=== PATIENT | female | born 1960 | race Caucasian/White ===

== ENCOUNTER 2022-10-27 05:42 | Outpatient (REF) | payer MEDICAID, SELFPAY ==
[2022-10-27 10:03] LABS: Basophils Percent Auto 0.4 % (0.2-2.0); Eosinophils Absolute Auto 0.5 10^3/uL (0.0-0.7); Eosinophils Percent Auto 9.6 % (0.9-7.0); Hematocrit 23.4 % (36.0-48.0); Immature Granulocytes Abs Auto 0.08 10^3/uL (0.00-0.03); Immature Granulocytes Pct Auto 1.4 % (0.0-0.5); Lymphocytes Absolute Auto 1.8 10^3/uL (1.2-3.8); Lymphocytes Percent Auto 31.8 % (20.5-60.0); Mean Corpuscular Hemoglobin 27.6 pg (26.7-34.0); Mean Corpuscular Volume 97.9 fL (81.0-99.0); Mean Platelet Volume 10.3 fL (9.5-13.5); Monocytes Absolute Auto 0.4 10^3/uL (0.3-0.8); Monocytes Percent Auto 6.8 % (1.7-12.0); Neutrophils Absolute Auto 2.8 10^3/uL (1.4-6.5); Platelet Count 119 10^3/uL (150-450); Red Blood Count 2.39 10^6/uL (4.20-5.40); Red Cell Distribution Width 15.5 % (11.0-15.0); White Blood Count 5.6 10^3/uL (4.0-11.0)
[2022-10-27 10:44] LABS: Mean Corpuscular HGB Conc 28.2 g/dL (29.9-35.2)
[2022-10-27 10:46] LABS: Hemoglobin 6.6 g/dL (12.0-16.0)
[2022-10-27 22:25] LABS: Alanine Aminotransferase 26 U/L (14-59); Albumin Globulin Ratio 0.7; Albumin Level 2.4 g/dL (3.4-5.0); Alkaline Phosphatase 112 U/L (46-116); Anion Gap 10.8; Aspartate Amino Transferase 20 U/L (15-37); BUN Creatinine Ratio 51.1; Bilirubin Total 0.1 mg/dL (0.2-1.0); Calcium 8.9 mg/dL (8.5-10.1); Carbon Dioxide 29.8 mmol/L (21.0-32.0); Chloride 106 mmol/L (98-107); Estimated GFR (African America 45 (>=60); Estimated GFR (Non-African Ame 38 (>=60); Globulin 3.5 g/dL; Glucose 128 mg/dL (74-106); Potassium 5.6 mmol/L (3.5-5.1); Sodium 141 mmol/L (136-145); Total Protein 5.9 g/dL (6.4-8.2)
== END 2022-10-27 05:43 ==
LOC: LAB 05:42
PROVIDERS: PCP Family Medicine; Visit Provider Family Medicine
DX: R53.1 Weakness (principal); Z79.899 Other long term (current) drug therapy; D64.9 Anemia, unspecified
CPT/HCPCS: 36415; 80053; 85025; 86850; 86900; 86901; P9016

== ENCOUNTER 2022-10-28 07:32 | Outpatient (RCR) | payer MEDICAID, SELFPAY ==
[2022-10-28] VITALS (8 sets, daily range): BP systolic 74–100; BP diastolic 43–71; PULSE 80–83; RESP 18–20; TEMP 35.9–36.6; O2SAT 94–99
[2022-10-28] MEDS: 0.9 % SODIUM CHLORIDE 250 ML 10 ML IV (08:44)
--- NOTE | 2022-10-28 09:10 | PC.NURSE ---
0800: Pt. to [facility] via w/c from half-way accompanied by hazardous materials driver. Pt. requests to remain in w/c throughout transfusion. Pt. with O2 intact at 3L nasal cannula. BP 74/42. Pt. relays extreme fatigue lately and chronic dyspnea. 0815: #22 gauge IV initiated to left forearm on first attempt with immediate blood return. Flushes easily. Pt. tolerates with minimal c/o pain. IV normal saline initiated at KVO. 0817: Pt. c/o pain to IV site. Edema observed. IV d/c'd, pressure to site. #22 gauge IV initiated to right arm on first attempt without difficulty. Flushes easily without redness, edema or pain. IV normal saline resumed. 0845: 1 unit PRBC initiated at this time. 0900: Pt. without s&s of adverse reaction. VSS. Pt. denies needs. Water and warm blanket given.
--- NOTE | 2022-10-28 09:35 | PC.NURSE ---
0935: Pt. without c/o. PRBC cont. to infuse without difficulty. Denies needs.
--- NOTE | 2022-10-28 11:12 | PC.NURSE ---
Dual authentication completed as per protocol on second unit of blood received this day #[id number].
--- NOTE | 2022-10-28 11:20 | PC.NURSE ---
1025: First unit PRBC completed at this time without s&s of transfusion reaction. VSS. Assisted pt. to bathroom via w/c. Voids Q.S. Returns to room. 1048: Second unit PRBC initiated at this time after double check performed with Dane Downs RN. IV site remains without s&s of infiltration. Pt. drinking water. Declines food when offered. 1108: Pt. tolerating infusion without c/o. VSS. Denies needs.
--- NOTE | 2022-10-28 12:15 | PC.NURSE ---
1210: Second unit PRBC completed at this time. Pt. without s&s of transfusion reaction. VSS. IV d/c'd, pressure to site. 1212: Revenue Officer Perry arrives. Pt. d/c'd via w/c back to [facility].
== END 2022-11-19 23:59 | disposition home or self-care (01) ==
LOC: INF 07:32
PROVIDERS: PCP Family Medicine; Visit Provider Family Medicine
DX: D64.9 Anemia, unspecified (principal)
CPT/HCPCS: 36430; 86850; 86900; 86901; P9016

== ENCOUNTER 2022-11-25 14:56 | Outpatient (REF) | payer MEDICAID, SELFPAY ==
[2022-11-26 08:56] LABS: C. Difficile PCR NEGATIVE (NEGATIVE)
== END 2022-11-25 14:57 | disposition home or self-care (01) ==
LOC: LAB 14:56
PROVIDERS: PCP Family Medicine; Visit Provider Family Medicine
DX: R19.7 Diarrhea, unspecified (principal)
CPT/HCPCS: 87493

== ENCOUNTER 2022-11-29 15:32 | Inpatient (IN) | payer MEDICAID, SELFPAY ==
[2022-11-29] VITALS (29 sets, daily range): BP systolic 77–190; BP diastolic 52–94; PULSE 85–113; RESP 11–75; TEMP 36.4–36.9; O2SAT 74–100; BMI 45.4; BMI 44.2
--- NOTE | 2022-11-29 15:45 | XR_ITS ---
The [address] [address] Patient Name: KAM ESTES MRN: [id number] date: 1960 Sex: F Assigned Patient Location: ER Current Patient Location: ED.MAIN Accession/Order Number: [id number] Exam Date: 11/29/2022 16:00 Report Date: 11/29/2022 16:15 At the request of: JÚNIOR MCGUIRE Procedure: XR chest 1V EXAM: XR chest 1V at 1558 hours HISTORY: SOB COMPARISON: 08/01/2022 TECHNIQUE: AP upright portable chest x-ray FINDINGS: Increasing opacity at the left lung base indicates a combination of atelectasis or infiltrate, possibly with a small effusion. The left upper and the right lung are clear. The heart is not significantly enlarged and the vasculature is not distended, although evaluation is bit limited by the patient rotation to the left. The osseous structures are grossly intact. XR/XR chest 1V IMPRESSION: Atelectasis or infiltrate is seen at the left lung base, possibly accompanied by small effusion. There is no evidence of overt cardiac decompensation. Electronically authenticated by: VEL QUIJANO Date: 11/29/2022 16:15
--- NOTE | 2022-11-29 15:45 | ECG_ITS ---
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
--- NOTE | 2022-11-29 15:46 | ED_ITS ---
HPI - General Adult General Chief complaint: Altered Mental Status Stated complaint: SOB Time Seen by Provider: 11/29/22 15:36 Source: patient Mode of arrival: ambulance Limitations: no limitations History of Present Illness HPI narrative: 62-year-old female presented for unclear reasons. ECF staff gave report and stated that she was shaky and wasn't acting herself. She doesn't seem to have any complaints. She's not complained to me of chest pain or headache or abdominal pain. Related Data Home Medications Medication Instructions Recorded Confirmed acetaminophen 500 mg tablet 1,000 mg PO Q6H PRN fever 11/29/22 11/29/22 alendronate 70 mg tablet 70 mg PO QDAY 11/29/22 11/29/22 alprazolam 0.25 mg tablet 0.25 mg PO TID PRN anxiety 11/29/22 11/29/22 apixaban 5 mg tablet (Eliquis) 5 mg PO Q12H 11/29/22 11/29/22 atorvastatin 10 mg tablet 10 mg PO .qhs 11/29/22 11/29/22 bupropion HCl (smoking deter) 150 150 mg PO BID 11/29/22 11/29/22 mg tablet,12 hr sustained-release(smoking deterrent) calcium gluconate 650 mg tablet 650 mg PO BID 11/29/22 11/29/22 diclofenac potassium 50 mg tablet 50 mg PO Q12H 11/29/22 11/29/22 doxepin 10 mg capsule 10 mg PO BID 11/29/22 11/29/22 ferrous sulfate 325 mg (65 mg 325 mg PO DAILY 11/29/22 11/29/22 iron) tablet (Feosol) furosemide 20 mg tablet 40 mg PO QDAY 11/29/22 11/29/22 furosemide 20 mg tablet (Lasix) 20 mg PO DAILY 11/29/22 11/29/22 gabapentin 800 mg tablet 800 mg PO TID 11/29/22 11/29/22 metoprolol succinate 100 mg 150 mg PO QDAY 11/29/22 11/29/22 tablet,extended release 24 hr Allergies Allergy/AdvReac Type Severity Reaction Status Date / Time codeine AdvReac Intermediate Verified 11/29/22 15:53 coumadin AdvReac Intermediate Uncoded 11/29/22 15:53 Review of Systems ROS Narrative A ten point review of systems is negative except as noted above. Exam Narrative Exam Narrative: Nurses note and vital signs reviewed and patient is not hypoxic. General: The patient appears in no apparent distress. Patient is resting comfortably on cart. Skin: Warm, dry, no pallor noted. There is no rash noted. Head: Normocephalic, atraumatic Eye: Normal conjunctiva, no drainage Ears, Nose, Mouth, and Throat: oral mucosa is slightly dry. Nares patent. Cardiovascular: Regular Rate and Rhythm Respiratory: a few rhonchi are present, breath sounds are equal Back: non-tender GI: nontender Musculoskeletal: The patient has no evidence of calf tenderness, no pitting edema, symmetrical pulses noted bilaterally Neurological: A&O x3, normal speech Psychiatric: Cooperative Constitutional Vital Signs, click to edit/add: Last Vital Signs Temp 97.6 F 11/29/22 15:36 Pulse 90 11/29/22 15:36 Resp 18 11/29/22 15:36 BP 108/81 H 11/29/22 15:36 Pulse Ox 100 11/29/22 15:36 O2 Del Method Nasal Cannula 11/29/22 15:36 O2 Flow Rate 2 11/29/22 15:36 Course Vital Signs Vital signs: Vital Signs Temperature 97.6 F 11/29/22 15:36 Pulse Rate 90 11/29/22 15:36 Respiratory Rate 18 11/29/22 15:36 Blood Pressure 108/81 H 11/29/22 15:36 Pulse Oximetry 100 11/29/22 15:36 Oxygen Delivery Method Nasal Cannula 11/29/22 15:36 Oxygen Delivery Flow Rate 2 11/29/22 15:36 Temperature 97.6 F 11/29/22 15:36 Pulse Rate 90 11/29/22 15:36 Respiratory Rate 18 11/29/22 15:36 Blood Pressure 108/81 H 11/29/22 15:36 Pulse Oximetry 100 11/29/22 15:36 Oxygen Delivery Method Nasal Cannula 11/29/22 15:36 Oxygen Delivery Flow Rate 2 11/29/22 15:36 Medical Decision Making MDM Narrative Medical decision making narrative: the patient's workup suggested pneumonia on x-ray per radiologist. Blood cultures obtained and she was given IV Rocephin and Zithromax. Potassium also high at 5.6 and she was given IV insulin and D50. She is being admitted. Differential Diagnosis Differential Diagnosis: pneumonia, dehydration, anemia, slight imbalance Lab Data Lab results reviewed: Yes I reviewed the patient's lab results Labs: Lab Results 11/29/22 Range/Units 15:55 WBC 5.0 (4.0-11.0) 10^3/uL RBC 2.70 L (4.20-5.40) 10^6/uL Hgb 7.5 L (12.0-16.0) g/dL Hct 26.2 L (36.0-48.0) % MCV 97.0 (81.0-99.0) fL MCH 27.8 (26.7-34.0) pg MCHC 28.6 L (29.9-35.2) g/dL RDW 16.0 H (11.0-15.0) % Plt Count 140 L (150-450) 10^3/uL MPV 10.1 (9.5-13.5) fL Neut % (Auto) 63.1 (43.0-75.0) % Lymph % (Auto) 22.3 (20.5-60.0) % [place] % (Auto) 7.0 (1.7-12.0) % Eos % (Auto) 6.8 (0.9-7.0) % Baso % (Auto) 0.4 (0.2-2.0) % Neut # (Auto) 3.1 (1.4-6.5) 10^3/uL Lymph # (Auto) 1.1 L (1.2-3.8) 10^3/uL [place] # (Auto) 0.4 (0.3-0.8) 10^3/uL Eos # (Auto) 0.3 (0.0-0.7) 10^3/uL Baso # (Auto) 0.0 (0.0-0.1) 10^3/uL Abs Immat Gran (auto) 0.02 (0.00-0.03) 10^3/uL Imm/Tot Granulo (auto) 0.4 (0.0-0.5) % Sodium 144 (136-145) mmol/L Potassium 6.2 H* (3.5-5.1) mmol/L Chloride 106 (98-107) mmol/L Carbon Dioxide 35.2 H (21.0-32.0) mmol/L Anion Gap 9.0 BUN 47.0 H (7.0-18.0) mg/dL Creatinine 1.42 H (0.55-1.02) mg/dL Est GFR ( Amer) 45 L (>=60) Est GFR (Non-Af Amer) 37 L (>=60) BUN/Creatinine Ratio 33.1 Glucose 110 H (74-106) mg/dL Calcium 8.6 (8.5-10.1) mg/dL Troponin I High Sens 11.8 (4.0-51.3) pg/mL ECG Data Attestation: I personally reviewed and interpreted this ECG as follows: (EKG on my interpretation shows sinus rhythm with a rate of 90) Critical Care Time Critical Care Time Critical Care Time: Yes Total Critical Care Time: 30 Attestation: due to the high probability of sudden clinically significant deterioration this patient critical care time was necessary. She was given IV insulin and D50 for hyperkalemia. Discharge Plan Discharge Chief Complaint: Altered Mental Status Clinical Impression: Pneumonia due to organism Patient Disposition: Admitted As Inpatient Time of Disposition Decision: 17:55 Condition: Good Prescriptions / Home Meds: No Action alendronate 70 mg tablet 70 mg PO QDAY alprazolam 0.25 mg tablet 0.25 mg PO TID PRN (Reason: anxiety) Eliquis 5 mg tablet 5 mg PO Q12H bupropion HCl (smoking deter) 150 mg tablet extended release 12 hr 150 mg PO BID diclofenac potassium 50 mg tablet 50 mg PO Q12H doxepin 10 mg capsule 10 mg PO BID furosemide 20 mg tablet 40 mg PO QDAY furosemide [Lasix] 20 mg tablet 20 mg PO DAILY gabapentin 800 mg tablet 800 mg PO TID metoprolol succinate 100 mg tablet extended release 24 hr 150 mg PO QDAY acetaminophen 500 mg tablet 1,000 mg PO Q6H PRN (Reason: fever) atorvastatin 10 mg tablet 10 mg PO .qhs calcium gluconate 650 mg tablet 650 mg PO BID ferrous sulfate [Feosol] 325 mg (65 mg iron) tablet 325 mg PO DAILY Referrals: Asael Curiel MD [Primary Care Provider] - 1 week
[2022-11-29 16:02] LABS: Basophils Percent Auto 0.4 % (0.2-2.0); Eosinophils Absolute Auto 0.3 10^3/uL (0.0-0.7); Eosinophils Percent Auto 6.8 % (0.9-7.0); Hematocrit 26.2 % (36.0-48.0); Hemoglobin 7.5 g/dL (12.0-16.0); Immature Granulocytes Abs Auto 0.02 10^3/uL (0.00-0.03); Immature Granulocytes Pct Auto 0.4 % (0.0-0.5); Lymphocytes Absolute Auto 1.1 10^3/uL (1.2-3.8); Lymphocytes Percent Auto 22.3 % (20.5-60.0); Mean Corpuscular Hemoglobin 27.8 pg (26.7-34.0); Mean Platelet Volume 10.1 fL (9.5-13.5); Monocytes Absolute Auto 0.4 10^3/uL (0.3-0.8); Neutrophils Absolute Auto 3.1 10^3/uL (1.4-6.5); Neutrophils Percent Auto 63.1 % (43.0-75.0); Platelet Count 140 10^3/uL (150-450)
[2022-11-29 16:05] LABS: Mean Corpuscular HGB Conc 28.6 g/dL (29.9-35.2)
[2022-11-29 16:31] LABS: BUN Creatinine Ratio 33.1; Calcium 8.6 mg/dL (8.5-10.1); Carbon Dioxide 35.2 mmol/L (21.0-32.0); Chloride 106 mmol/L (98-107); Estimated GFR (African America 45 (>=60); Estimated GFR (Non-African Ame 37 (>=60); Glucose 110 mg/dL (74-106); Sodium 144 mmol/L (136-145); Troponin I High Sensitivity 11.8 pg/mL (4.0-51.3)
[2022-11-29 16:32] LABS: Potassium 6.2 mmol/L (3.5-5.1)
[2022-11-29] MEDS: DEXTROSE 50 %-WATER 25 GM/50 ML SYRINGE IV (17:20)
[2022-11-29] MEDS: INSULIN REGULAR 300 UNITS/3 ML 10 UNIT INJ (17:26)
[2022-11-29 17:54] LABS: Bilirubin Urine NEGATIVE (NEGATIVE); Blood Urine TRACE-I (NEGATIVE); Clarity Urine CLEAR (CLEAR); Color Urine LT. YELLOW (YELLOW); Glucose Urine UA NEGATIVE (NEGATIVE); Ketones Urine NEGATIVE (NEGATIVE); Leukocyte Esterase Urine NEGATIVE (NEGATIVE); Nitrite Urine NEGATIVE (NEGATIVE); Protein Urine 100 mg/dL (NEG/TRACE); Specific Gravity Urine 1.025 (1.005-1.025); Urobilinogen Urine 0.2 EU/dL (0.2-1.0); pH Urine 5.5 (5.0-9.0)
[2022-11-29] MEDS: CEFTRIAXONE 1,000 MG in 0.9 % SODIUM CHLORIDE 50 ML 100 MG IV (17:54)
[2022-11-29 17:55] LABS: Urine Microscopic Indicated YES
[2022-11-29 18:00] LABS: Bacteria Urine NONE SEEN #/HPF (NONE SEEN); Mucus Urine NONE SEEN (NONE SEEN); RBC Urine 0-2 #/HPF (0-2); Squamous Epithelial Cell Urine RARE #/LPF (NONE/RARE)
[2022-11-29 18:01] LABS: Cast Seen? NONE SEEN #/LPF (NONE SEEN); Crystals Seen? None Seen #/HPF (None Seen); Urine Culture Indicated YES
[2022-11-29] MEDS: AZITHROMYCIN 500 MG in 0.9 % SODIUM CHLORIDE 250 ML 250 MG IV (18:25)
[2022-11-29] MEDS: ALBUTEROL SULFATE 2.5 MG/3 ML VIAL NEB IH (20:53)
[2022-11-29] MEDS: IPRATROPIUM BROMIDE 0.5 MG/2.5 ML VIAL.NEB IH (20:53)
[2022-11-29] MEDS: BUDESONIDE 0.5 MG/2 ML AMPULE NEB IH (20:53)
[2022-11-29 21:20] LABS: Allen Test POSITIVE (POSITIVE); Base Excess ABG 4.4 mmol/L (-2.0-2.0); HCO3 ABG 32.6 mmol/L (22.0-26.0); Oxygen Saturation ABG >100.0 %
[2022-11-29 21:21] LABS: Liters per Minute 8; O2 Mode AEROSOL; Puncture Site R RADIAL
[2022-11-29 21:22] LABS: ABG PCO2 85.9 mmHg (35.0-45.0); pH ABG 7.188 (7.350-7.450)
--- NOTE | 2022-11-29 21:56 | P.HP_ITS ---
H&P: HPI History of Present Illness Chief complaint: SOB, Pneumonia due to organism Narrative: Rounded on Pt at [place] 3 days ago - no complaints then following day started having inc cough - this am at [place] O2 sats in low 80's, ablke to bring up but increasing confuaion - brought to ER, found to have acute COPD adn pneumonia - admitted to floor - on flooor, pt became confused, ABG ordered wtih pH 7.1, PCO2 70, transferred back to ICU for Bi-pap Review of Systems 2 ROS Constitutional Reports: fever Cardiovascular Denies: chest pain Respiratory Reports: shortness of breath, cough, wheezing and chest congestion Musculoskeletal Reports: back pain Psychiatric Reports: anxiety and difficulty concentrating Meds Home Medications and Allergies Home Medications Medication Instructions Recorded Confirmed Type acetaminophen 500 mg tablet 1,000 mg PO Q6H PRN fever 11/29/22 11/29/22 History alendronate 70 mg tablet 70 mg PO QDAY 11/29/22 11/29/22 History alprazolam 0.25 mg tablet 0.25 mg PO TID PRN anxiety 11/29/22 11/29/22 History apixaban 5 mg tablet (Eliquis) 5 mg PO Q12H 11/29/22 11/29/22 History atorvastatin 10 mg tablet 10 mg PO .qhs 11/29/22 11/29/22 History budesonide-formoterol HFA 80 2 inh inhalation BID 11/29/22 11/29/22 History mcg-4.5 mcg/actuation aerosol inhaler (Symbicort) bupropion HCl (smoking deter) 150 150 mg PO BID 11/29/22 11/29/22 History mg tablet,12 hr sustained-release(smoking deterrent) calcium gluconate 650 mg tablet 650 mg PO BID 11/29/22 11/29/22 History cetirizine 10 mg tablet (24Hour 10 mg PO DAILY PRN allergy symptoms 11/29/22 11/29/22 History Allergy) diclofenac potassium 50 mg tablet 50 mg PO Q12H 11/29/22 11/29/22 History doxepin 10 mg capsule 10 mg PO BID 11/29/22 11/29/22 History ferrous sulfate 325 mg (65 mg 325 mg PO DAILY 11/29/22 11/29/22 History iron) tablet (Feosol) furosemide 20 mg tablet 40 mg PO QDAY 11/29/22 11/29/22 History furosemide 20 mg tablet (Lasix) 20 mg PO DAILY 11/29/22 11/29/22 History gabapentin 800 mg tablet 800 mg PO TID 11/29/22 11/29/22 History loperamide 2 mg capsule 2 mg PO Q6H PRN loose stool 11/29/22 11/29/22 History metoprolol succinate 100 mg 150 mg PO QDAY 11/29/22 11/29/22 History tablet,extended release 24 hr montelukast 10 mg tablet 10 mg PO DAILY 11/29/22 11/29/22 History (Singulair) omeprazole 40 mg capsule,delayed 40 mg PO DAILY 11/29/22 11/29/22 History release roflumilast 500 mcg tablet 500 mcg PO DAILY 11/29/22 11/29/22 History (Daliresp) tiotropium bromide 2.5 2 inh inhalation Q24H 11/29/22 11/29/22 History mcg/actuation mist for inhalation (Spiriva Respimat) Allergies Allergy/AdvReac Type Severity Reaction Status Date / Time codeine AdvReac Intermediate Verified 11/29/22 15:53 coumadin AdvReac Intermediate Uncoded 11/29/22 15:53 Exam Constitutional Vital Signs, click to edit/add: Last Vital Signs Temp 98.4 F 11/29/22 18:50 Pulse 91 H 11/29/22 20:27 Resp 20 11/29/22 18:50 BP 190/65 H 11/29/22 18:50 Pulse Ox 93 L 11/29/22 18:50 O2 Del Method Nasal Cannula 11/29/22 18:50 O2 Flow Rate 3 11/29/22 18:50 Common normals: apparent distress [facility] Common normals: normocephalic Respiratory Common normals: no use of accessory muscles; abnormal respiratory effort and not clear to ascultation bilaterally Auscultation: rhonchi and wheezes; breath sounds present Cardio Common normals: regular rate and regular rhythm GI Inspection: normal to inspection (obese) Neuro Sensorium/orientation: fluctuating sensorium; not awake Results Labs Labs: Short CBC 11/29/22 Range/Units 15:55 WBC 5.0 (4.0-11.0) 10^3/uL Hgb 7.5 L (12.0-16.0) g/dL Hct 26.2 L (36.0-48.0) % Plt Count 140 L (150-450) 10^3/uL BMP 11/29/22 15:55 Sodium 144 Potassium 6.2 H* Chloride 106 Carbon Dioxide 35.2 H BUN 47.0 H Creatinine 1.42 H Glucose 110 H Calcium 8.6 Urine 11/29/22 Range/Units 17:20 Urine Color Lt. yellow (YELLOW) Urine Clarity Clear (CLEAR) Urine pH 5.5 (5.0-9.0) Ur Specific [place] 1.025 (1.005-1.025) Urine Protein 100 A (NEG/TRACE) mg/dL Urine Glucose (UA) Negative (NEGATIVE) mg/dL ABG ABG results: 11/29/22 21:00 ABG pH 7.188 L* ABG pCO2 85.9 H* ABG pO2 213.0 H ABG HCO3 32.6 H ABG O2 Saturation >100.0 ABG Base Excess 4.4 H Assessment and Plan Assessment and Plan (1) COPD with acute exacerbation: (2) Pneumonia due to organism: (3) Hypercholesterolemia: (4) Anxiety: Plan Acute hypoxic resp failure twih hypercapnea leading to acute exacerbation copd - Steroids, Aeresol, Trial Bipap-vapothermdepending on tolerance, ativan if needed to use bipap Hyperkalemia - adjust meds - serial testing - treated in Er Anemia - < 8 - repeat in Am - likely needs transfused - check stool for Occ Blood Anxiety =- has meds from [facility] - may need IV for assistance with tolerating the Bi- pap Abn U/A 0 chekc on Cx Hypertension - on meds - monitor - adjust meds Morbid obesist - diet managemtn With Respo failure, change to in-patient status - likely 3-4 day hosp stay
--- NOTE | 2022-11-29 22:02 | PC.NURSE ---
Administrative Office Clerk arrived in patients room at 1999 for admission physical assessment. Patient's skin appeared dusky. Administrative Office Clerk woke patient by shaking and calling her name. Patient was aware of her name and . Administrative Office Clerk obtained POX at 74%. Administrative Office Clerk checked O2 and it was running at 3L. O2 was increased to 4L. Respiratory therapy requested to room stat. Administrative Office Clerk bumped resident up to 6L to obtain 94%. Respiratory therapy arrived in room. Non rebreather mask and scheduled breathing treatments administered. Administrative Office Clerk notified Hospitalist who ordered STAT ABGs. Administrative Office Clerk was notifed of Critical ABG levels. Doctor notified and ordered BIPAP stat. Patient was moved to ICU per Dr Curiel. Patient was transferred to ICU at 2140.
[2022-11-29] MEDS: ACETYLCYSTEINE 400 MG/4 ML VIAL 200 MG IH (22:14)
[2022-11-29] MEDS: LACTATED RINGER'S SOLUTION 1,000 ML 50 ML IV (22:24)
--- NOTE | 2022-11-29 22:32 | PC.NURSE ---
ALKA/ Khadar Stewart notified of ICU transfer at 1465
[2022-11-29 23:48] LABS: Allen Test POSITIVE (POSITIVE); Base Excess ABG 5.3 mmol/L (-2.0-2.0); HCO3 ABG 32.3 mmol/L (22.0-26.0); Liters per Minute 40; O2 Mode VAPOTHERM; PO2 ABG 82.6 mmHg (80.0-100.0)
[2022-11-29 23:49] LABS: Fractionated Inspired Oxygen 40 %; Puncture Site R RADIAL
[2022-11-29 23:50] LABS: ABG PCO2 71.3 mmHg (35.0-45.0); pH ABG 7.265 (7.350-7.450)
[2022-11-30] VITALS (51 sets, daily range): BP systolic 134–213; BP diastolic 65–157; PULSE 81–178; RESP 14–53; TEMP 36.2–36.8; O2SAT 91–984; BMI 44.1
[2022-11-30] MEDS: LEVOFLOXACIN IN DEXTROSE 5 % 750 MG/150 ML PIGGYBACK IV (00:13)
[2022-11-30] MEDS: PIPERACILLIN SODIUM/TAZOBACTAM 3.375 GM in 0.9 % SODIUM CHLORIDE 50 ML IV (00:14)
[2022-11-30] MEDS: PANTOPRAZOLE SODIUM 40 MG VIAL IV ×2 (00:15→21:21)
[2022-11-30] MEDS: METHYLPREDNISOLONE SOD SUCC PF 125 MG/2 ML VIAL IVP ×5 (00:16→22:34)
[2022-11-30] MEDS: ATORVASTATIN CALCIUM 10 MG TABLET PO ×2 (00:16→21:22)
[2022-11-30] MEDS: ALPRAZOLAM 0.25 MG TABLET PO ×4 (00:16→21:21)
[2022-11-30] MEDS: CALCIUM CARBONATE 600 MG TABLET PO ×3 (00:16→21:21)
[2022-11-30] MEDS: APIXABAN 5 MG TABLET PO ×3 (00:17→21:22)
[2022-11-30] MEDS: GABAPENTIN 400 MG CAPSULE 800 MG PO ×4 (00:17→21:22)
[2022-11-30] MEDS: DOXEPIN HCL 10 MG CAPSULE PO ×3 (00:18→21:22)
--- NOTE | 2022-11-30 00:48 | RESP.RT ---
pt did not tolerate BiPAP, even with pressure changes. Pt wore for less than 5 mins. Physician notified, pt placed on HHFNC 40L/40%. pt tolerating well.
[2022-11-30] MEDS: IPRATROPIUM/ALBUTEROL SULFATE 3 ML AMPUL.NEB IH ×6 (04:04→23:28)
[2022-11-30 05:04] LABS: Alanine Aminotransferase 20 U/L (14-59); Albumin Globulin Ratio 0.6; Albumin Level 2.6 g/dL (3.4-5.0); Alkaline Phosphatase 90 U/L (46-116); Anion Gap 8.5; Aspartate Amino Transferase 20 U/L (15-37); BUN Creatinine Ratio 34.5; Bilirubin Total 0.1 mg/dL (0.2-1.0); Calcium 8.5 mg/dL (8.5-10.1); Chloride 107 mmol/L (98-107); Estimated GFR (African America >60 (>=60); Estimated GFR (Non-African Ame 50 (>=60); Globulin 4.1 g/dL; Glucose 128 mg/dL (74-106); Magnesium 1.7 mg/dL (1.8-2.4); Potassium 5.5 mmol/L (3.5-5.1); Sodium 142 mmol/L (136-145); Total Protein 6.7 g/dL (6.4-8.2)
[2022-11-30 07:12] LABS: Hematocrit 24.3 % (36.0-48.0); Mean Corpuscular HGB Conc 28.8 g/dL (29.9-35.2); Mean Corpuscular Hemoglobin 27.7 pg (26.7-34.0); Mean Platelet Volume 10.9 fL (9.5-13.5); Platelet Count 114 10^3/uL (150-450); Red Blood Count 2.53 10^6/uL (4.20-5.40); Red Cell Distribution Width 15.5 % (11.0-15.0); White Blood Count 4.5 10^3/uL (4.0-11.0)
--- NOTE | 2022-11-30 07:19 | PM.PLCN ---
History of Present Illness History of Present Illness Consult date: 11/30/22 Requesting physician: Asael Curiel Reason for consult: pneumonia Chief complaint: SOB, Pneumonia due to organism Narrative: 62yo female, known to me, presented from [facility] with mental status changes and hypoxemia. She is on 3L/min O2 baseline, but despite this, SpO2 was in the 80's @ ECF. Brought in to ER, evaluated, CXR suggested LLL infiltrate. ABG checked which showed acute hypercapnic respiratory failure. She was placed on BiPAP but could not tolerate it; she was then placed on Vapotherm. Despite the patient seeing me outpatient for several years, she did not recognize me initially upon introducing myself. Son is present in the room; he states she is still a little confused even for him, but overall it is improved compared to admission yesterday. Review of Systems ROS Narrative Patient is confused, but states she is short of breath, has coughing. Mild epistaxis from nasal cannula - dried blood currently. Status of ROS unobtainable due to medical condition Meds Home Medications and Allergies Home Medications Medication Instructions Recorded Confirmed Type acetaminophen 500 mg tablet 1,000 mg PO Q6H PRN fever 11/29/22 11/29/22 History alendronate 70 mg tablet 70 mg PO QDAY 11/29/22 11/29/22 History alprazolam 0.25 mg tablet 0.25 mg PO TID PRN anxiety 11/29/22 11/29/22 History apixaban 5 mg tablet (Eliquis) 5 mg PO Q12H 11/29/22 11/29/22 History atorvastatin 10 mg tablet 10 mg PO .qhs 11/29/22 11/29/22 History budesonide-formoterol HFA 80 2 inh inhalation BID 11/29/22 11/29/22 History mcg-4.5 mcg/actuation aerosol inhaler (Symbicort) bupropion HCl (smoking deter) 150 150 mg PO BID 11/29/22 11/29/22 History mg tablet,12 hr sustained-release(smoking deterrent) calcium gluconate 650 mg tablet 650 mg PO BID 11/29/22 11/29/22 History cetirizine 10 mg tablet (24Hour 10 mg PO DAILY PRN allergy symptoms 11/29/22 11/29/22 History Allergy) diclofenac potassium 50 mg tablet 50 mg PO Q12H 11/29/22 11/29/22 History doxepin 10 mg capsule 10 mg PO BID 11/29/22 11/29/22 History ferrous sulfate 325 mg (65 mg 325 mg PO DAILY 11/29/22 11/29/22 History iron) tablet (Feosol) furosemide 20 mg tablet 40 mg PO QDAY 11/29/22 11/29/22 History furosemide 20 mg tablet (Lasix) 20 mg PO DAILY 11/29/22 11/29/22 History gabapentin 800 mg tablet 800 mg PO TID 11/29/22 11/29/22 History loperamide 2 mg capsule 2 mg PO Q6H PRN loose stool 11/29/22 11/29/22 History metoprolol succinate 100 mg 150 mg PO QDAY 11/29/22 11/29/22 History tablet,extended release 24 hr montelukast 10 mg tablet 10 mg PO DAILY 11/29/22 11/29/22 History (Singulair) omeprazole 40 mg capsule,delayed 40 mg PO DAILY 11/29/22 11/29/22 History release roflumilast 500 mcg tablet 500 mcg PO DAILY 11/29/22 11/29/22 History (Daliresp) tiotropium bromide 2.5 2 inh inhalation Q24H 11/29/22 11/29/22 History mcg/actuation mist for inhalation (Spiriva Respimat) Allergies Allergy/AdvReac Type Severity Reaction Status Date / Time codeine AdvReac Intermediate Verified 11/29/22 15:53 coumadin AdvReac Intermediate Uncoded 11/29/22 15:53 Exam Constitutional Vital Signs, click to edit/add: Last Vital Signs Temp 98.4 F 11/29/22 18:50 Pulse 88 11/30/22 05:00 Resp 29 H 11/30/22 05:00 BP 134/65 H 11/30/22 01:01 Pulse Ox 95 11/30/22 05:00 O2 Del Method Vapotherm 11/30/22 04:09 O2 Flow Rate 40 11/30/22 04:09 FiO2 40 11/30/22 04:09 Documenting provider has reviewed patient's vital signs: yes Exam limitations: altered mental status Nutritional appearance: obese Orientation/consciousness: Yes confused Other: Appears chronically ill HENMT Nose: epistaxis (Dried blood; wearing Vapotherm nasal cannula) bilaterally Mouth: tongue abnormal hypertrophic (macroglossia) Teeth and gingiva: edentulous Throat: other (Mallampati IV) Chest Chest: symmetrical chest wall rise; inspection of the chest normal (Increased A-P diameter) Respiratory Effort & inspection: symmetric chest movement and tachypneic; does not use accessory muscles Auscultation: rhonchi and diminished lung sounds; no wheezes Cardio Rate: regular rate Rhythm: regular rhythm GI Inspection: central obesity Palpation: soft Bladder/kidney exam: catheter in place Extremity General: edema (1+ BLE edema) Neuro Other: No seizure activity Psych Attitude: calm Results Laboratory Findings ABG, PT/INR, D-dimer: ABG ABG pH 7.265 (7.350-7.450) L* 11/29/22 23:40 ABG pCO2 71.3 mmHg (35.0-45.0) H* 11/29/22 23:40 ABG pO2 82.6 mmHg (80.0-100.0) 11/29/22 23:40 ABG O2 Saturation 97.0 % 11/29/22 23:40 Abnormal lab findings: Abnormal Labs 11/29/22 11/29/22 11/29/22 15:55 17:20 21:00 RBC 2.70 L Hgb 7.5 L Hct 26.2 L MCHC 28.6 L RDW 16.0 H Plt Count 140 L Lymph # (Auto) 1.1 L ABG pH 7.188 L* ABG pCO2 85.9 H* ABG pO2 213.0 H ABG HCO3 32.6 H ABG Base Excess 4.4 H Potassium 6.2 H* Carbon Dioxide 35.2 H BUN 47.0 H Creatinine 1.42 H Est GFR ( Amer) 45 L Est GFR (Non-Af Amer) 37 L Glucose 110 H Magnesium Total Bilirubin NT-Pro-B Natriuret Pep Albumin Urine Protein 100 A Urine WBC 5-10 A Urine Yeast Seen A 11/29/22 11/30/22 23:40 04:00 RBC Hgb Hct MCHC RDW Plt Count Lymph # (Auto) ABG pH 7.265 L* ABG pCO2 71.3 H* ABG pO2 ABG HCO3 32.3 H ABG Base Excess 5.3 H Potassium 5.5 H Carbon Dioxide BUN 38.0 H Creatinine 1.10 H Est GFR ( Amer) Est GFR (Non-Af Amer) 50 L Glucose 128 H Magnesium 1.7 L Total Bilirubin 0.1 L NT-Pro-B Natriuret Pep 3508.0 H* Albumin 2.6 L Urine Protein Urine WBC Urine Yeast Diagnostic Findings Chest x-ray: pending Additional studies: ABGs reviewed. Office note from 10/26/2022 reviewed. Assessment and Plan Assessment and Plan (1) Pneumonia due to organism: Plan 1. Healthcare-acquired pneumonia. Present on admission, LLL infiltrate on CXR. Continue antibiotics. 2. Acute exacerbation of COPD. Has underlying centrilobular emphysema. Continue bronchodilators. Adjusted nebulized medications. She is to be on Symbicort 160 and Spiriva 2.5 outpatient according to my notes. Unclear how much benefit patient has with Daliresp +/- Singulair, but given her severe COPD, would err on the side of caution and continue it. 3. Acute hypercapnic respiratory failure. Secondary to the above. Did not tolerate BiPAP; placed on Vapotherm. Attempting to avoid intubation unless absolutely necessary. Monitor ABGs closely - slow improvement with pH up to 7.3 and pCO2 down to 64. 4. Ttfxc-or-hwnxwom hypoxic respiratory failure. Baseline FiO2 3L/min ATC; was hypoxic on this flow (in the 80's). Continue O2, goal SpO2 90-92% - avoid hyperoxia. 5. Obstructive sleep apnea. Patient is noncompliant. Office visit 10/26/2022 was a he said she said issue regarding PAP compliance...patient claimed she was using it, but compliance data pulled showed ZERO compliance for >4 hours of any day. She did not tolerate the BiPAP here for hypercapnia. 6. Hyperkalemia. Secondary to extracellular shift due to acidosis. Should improve as acidosis improves. 7. Iron deficiency anemia. Hb dropped to 7g/dL today. Increased Hb would improve O2/CO2 carrying capacity - recommend transfusion of PRBCs. 8. Rhinitis sicca with associated epistaxis. Secondary to O2 per nasal cannula/Vapotherm. Add [place] gel. Patient's son was counseled to never use petroleum-based products with nasal cannulae. 9. Abnormal UA. Awaiting C&S. 10. Toxic metabolic encephalopathy. Multifactorial, including hypercapnia, pneumonia, and possible UTI. Mentation improved some with partial correction of hypercapnia, but still remains confused. 11. Morbid obesity. BMI 44.2, inducing a restrictive pulmonary physiology. Patient lives a relatively sedentary lifestyle. Decreased calories, increased activity recommended. 12. History of NSTEM type 2. Monitor for any s/sx of [place].
[2022-11-30 08:26] LABS: pH ABG 7.302 (7.350-7.450)
[2022-11-30 08:27] LABS: Allen Test POSITIVE (POSITIVE); Base Excess ABG 5.1 mmol/L (-2.0-2.0); Fractionated Inspired Oxygen 35 %; HCO3 ABG 31.5 mmol/L (22.0-26.0); Liters per Minute 40; O2 Mode VAPOTHERM; Oxygen Saturation ABG 96.7 %; PO2 ABG 79.8 mmHg (80.0-100.0); Puncture Site RR
[2022-11-30 08:30] LABS: ABG PCO2 63.8 mmHg (35.0-45.0)
[2022-11-30 08:34] LABS: Eosinophils Absolute Manual 0.09 10^3/uL (0.00-0.70); Lymphocytes Absolute Manual 1.03 10^3/uL (1.20-3.80); Segmented Neut Absolute Manual 3.33 10^3/uL (1.4-6.5)
[2022-11-30 08:35] LABS: Hypochromasia 1+
[2022-11-30] MEDS: DICLOFENAC SODIUM 25 MG TABLET.DR 50 MG PO ×2 (09:19→16:02)
[2022-11-30] MEDS: FUROSEMIDE 20 MG TABLET 40 MG PO (09:19)
[2022-11-30] MEDS: ROFLUMILAST 500 MCG TABLET PO (09:19)
[2022-11-30] MEDS: MONTELUKAST SODIUM 10 MG TABLET PO (09:19)
[2022-11-30] MEDS: FERROUS SULFATE 325 MG TABLET PO (09:19)
[2022-11-30] MEDS: METOPROLOL SUCCINATE 50 MG TAB.ER.24H 150 MG PO (09:20)
[2022-11-30] MEDS: BUPROPION HCL 150 MG SR TABLET 12H PO ×2 (09:20→21:25)
[2022-11-30] MEDS: SODIUM CHLORIDE/ALOE VERA SALINE NASAL GEL 14.1 GM TUBE 1 APPLIC NS (09:25)
--- NOTE | 2022-11-30 10:09 | P.PN_ITS ---
Progress Note: Subjective Subjective Interval history: More awake and alert this morning, seems [place] Exam Constitutional Vital Signs, click to edit/add: Last Vital Signs Temp 98.4 F 11/29/22 18:50 Pulse 88 11/30/22 09:55 Resp 29 H 11/30/22 05:00 BP 134/65 H 11/30/22 01:01 Pulse Ox 92 L 11/30/22 09:55 O2 Del Method Vapotherm 11/30/22 04:09 O2 Flow Rate 40 11/30/22 04:09 FiO2 40 11/30/22 04:09 Common normals: apparent distress (Mild respiratory distress) Exam limitations: altered mental status (seems better than yesterday) Chest Common normals: inspection of chest normal Respiratory Common normals: abnormal respiratory effort Effort & inspection: able to speak in complete sentences Auscultation: diminished lung sounds Cardio Rate: regular rate GI Common normals: Normal to inspection, nondistended, normoactive bowel sounds present Progress Note: Objective Labs Labs: Short CBC 11/29/22 11/30/22 Range/Units 15:55 04:00 WBC 5.0 4.5 (4.0-11.0) 10^3/uL Hgb 7.5 L 7.0 L (12.0-16.0) g/dL Hct 26.2 L 24.3 L (36.0-48.0) % Plt Count 140 L 114 L (150-450) 10^3/uL BMP 11/29/22 11/30/22 15:55 04:00 Sodium 144 142 Potassium 6.2 H* 5.5 H Chloride 106 107 Carbon Dioxide 35.2 H 32.0 BUN 47.0 H 38.0 H Creatinine 1.42 H 1.10 H Glucose 110 H 128 H Calcium 8.6 8.5 Liver Function 11/30/22 Range/Units 04:00 Total Bilirubin 0.1 L (0.2-1.0) mg/dL AST 20 (15-37) U/L ALT 20 (14-59) U/L Alkaline Phosphatase 90 (46-116) U/L Albumin 2.6 L (3.4-5.0) g/dL Urine 11/29/22 Range/Units 17:20 Urine Color Lt. yellow (YELLOW) Urine Clarity Clear (CLEAR) Urine pH 5.5 (5.0-9.0) Ur Specific [place] 1.025 (1.005-1.025) Urine Protein 100 A (NEG/TRACE) mg/dL Urine Glucose (UA) Negative (NEGATIVE) mg/dL Progress Note: A&P Assessment and Plan (1) Pneumonia due to organism: Plan HCAP with Acute hypoxic resp failure with hypercapnea leading to acute exacerbation copd - Steroids, Aeresol, - on vapogtherm [facility] some improvement - pulmonology on counsult Hyperkalemia - adjust meds - serial testing - treated in Er - Improved Anemia - < 8 - repeat in Am - likely needs transfused - check stool for Occ Blood-We will receive 2 units of PRBCs this morning Anxiety =- has meds from NH - may need IV for assistance with tolerating the [id number]-Lrmpsu Abn U/A 0 -check on culture, pending Hypertension - on meds - monitor - adjust meds obstructive sleep apnea-patient refuses to wear a mask at nighttime Morbid obesity - diet management With Respo failure, change to in-patient status - likely 3-4 day hosp stay
--- NOTE | 2022-11-30 10:21 | CM.NOTE ---
Rounds made with Dr. Curiel, no discharge for pt today. Pt is [facility] at [facility] and will return back at discharge.
--- NOTE | 2022-11-30 10:31 | PC.NURSE ---
Verbal consent obtained from son, Simone, to give blood.
[2022-11-30] MEDS: ACETAMINOPHEN 325 MG TABLET 650 MG PO (10:33)
--- NOTE | 2022-11-30 10:34 | SWNOTE1 ---
Pt is from [facility] snf, to send updates.
[2022-11-30] MEDS: BUDESONIDE 0.5 MG/2 ML AMPULE NEB IH ×2 (10:36→23:28)
[2022-11-30] MEDS: 0.9 % SODIUM CHLORIDE 250 ML 100 ML IV (10:41)
[2022-11-30] MEDS: HYDRALAZINE HCL 20 MG/ML VIAL 10 MG IVP (11:48)
[2022-11-30 12:26] LABS: Carboxyhemoglobin 1.5 % (1.5-4.9); Methemoglobin ABG <1.0 % (1.1-1.9)
[2022-11-30 13:34] LABS: A. calcoaceticus-baumannii Cpx NOT DETECTED (NOT DETECTE); Bacteroides fragilis NOT DETECTED (NOT DETECTE); Candida albicans NOT DETECTED (NOT DETECTE); Candida auris NOT DETECTED (NOT DETECTE); Candida glabrata NOT DETECTED (NOT DETECTE); Candida krusei NOT DETECTED (NOT DETECTE); Candida parapsilosis NOT DETECTED (NOT DETECTE); Candida tropicalis NOT DETECTED (NOT DETECTE); Cryptococcus neoformans/gattii NOT DETECTED (NOT DETECTE); Enterobacter cloacae complex NOT DETECTED (NOT DETECTE); Enterobacterales NOT DETECTED (NOT DETECTE); Enterococcus faecalis NOT DETECTED (NOT DETECTE); Enterococcus faecium NOT DETECTED (NOT DETECTE); Haemophilus influenzae NOT DETECTED (NOT DETECTE); Klebsiella aerogenes NOT DETECTED (NOT DETECTE); Klebsiella pneumoniae group NOT DETECTED (NOT DETECTE); Listeria monocytogenes NOT DETECTED (NOT DETECTE); Neisseria meningitidis NOT DETECTED (NOT DETECTE); Proteus spp. NOT DETECTED (NOT DETECTE); Pseudomonas aeruginosa NOT DETECTED (NOT DETECTE); Salmonella spp. NOT DETECTED (NOT DETECTE); Serratia marcescens NOT DETECTED (NOT DETECTE); Staphylococcus lugdunensis NOT DETECTED (NOT DETECTE); Stenotrophomonas maltophilia NOT DETECTED (NOT DETECTE); Streptococcus agalactiae NOT DETECTED (NOT DETECTE); Streptococcus pneumoniae NOT DETECTED (NOT DETECTE); Streptococcus pyogenes NOT DETECTED (NOT DETECTE); Streptococcus spp. NOT DETECTED (NOT DETECTE)
--- NOTE | 2022-11-30 14:38 | PC.NURSE ---
Cna Gna took patient off vapotherm and put on 6L nasal cannula. Patient was 94%on vapotherm and is steady at 100% on 6L. Will continue to monitor.
--- NOTE | 2022-11-30 14:49 | DIETREC ---
recommend prostat @ 30 mlbid po
[2022-11-30 15:03] LABS: mecA/C DETECTED (NOT DETECTE)
[2022-11-30 15:04] LABS: Staphylococcus epidermidis DETECTED (NOT DETECTE); Staphylococcus spp. DETECTED (NOT DETECTE)
--- NOTE | 2022-11-30 15:42 | SWNOTE1 ---
Pt is confused at this time, SW to re-assess tomorrow. Pt from [facility] [place] [facility].
[2022-11-30] MEDS: FUROSEMIDE 40 MG/4 ML VIAL 80 MG IVP (16:01)
[2022-11-30] MEDS: HYDRALAZINE HCL 20 MG/ML VIAL IVP (16:02)
--- NOTE | 2022-11-30 16:45 | PC.NURSE ---
Patient is now weaned down to 2L oxygen via nasal cannula and SPO2 remains at 95%
[2022-11-30] MEDS: ACETAMINOPHEN 500 MG TABLET 1000 MG PO (21:24)
[2022-12-01] VITALS (43 sets, daily range): BP systolic 172–205; BP diastolic 70–137; PULSE 81–112; RESP 15–40; TEMP 36.2–36.4; O2SAT 91–99
[2022-12-01] MEDS: IPRATROPIUM/ALBUTEROL SULFATE 3 ML AMPUL.NEB IH ×4 (04:17→22:01)
[2022-12-01 05:21] LABS: Hematocrit 32.5 % (36.0-48.0); Hemoglobin 10.1 g/dL (12.0-16.0); Immature Granulocytes Abs Auto 0.05 10^3/uL (0.00-0.03); Immature Granulocytes Pct Auto 1.5 % (0.0-0.5); Lymphocytes Absolute Auto 0.5 10^3/uL (1.2-3.8); Lymphocytes Percent Auto 13.7 % (20.5-60.0); Mean Corpuscular HGB Conc 31.1 g/dL (29.9-35.2); Mean Corpuscular Hemoglobin 27.9 pg (26.7-34.0); Mean Corpuscular Volume 89.8 fL (81.0-99.0); Mean Platelet Volume 10.2 fL (9.5-13.5); Monocytes Absolute Auto 0.1 10^3/uL (0.3-0.8); Monocytes Percent Auto 2.3 % (1.7-12.0); Neutrophils Absolute Auto 2.8 10^3/uL (1.4-6.5); Neutrophils Percent Auto 82.5 % (43.0-75.0); Platelet Count 134 10^3/uL (150-450); Red Blood Count 3.62 10^6/uL (4.20-5.40); Red Cell Distribution Width 15.8 % (11.0-15.0); White Blood Count 3.4 10^3/uL (4.0-11.0)
[2022-12-01 05:42] LABS: Alanine Aminotransferase 21 U/L (14-59); Albumin Globulin Ratio 0.7; Albumin Level 2.9 g/dL (3.4-5.0); Alkaline Phosphatase 89 U/L (46-116); Anion Gap 9.6; Aspartate Amino Transferase 17 U/L (15-37); BUN Creatinine Ratio 31.8; Bilirubin Total 0.2 mg/dL (0.2-1.0); Carbon Dioxide 32.6 mmol/L (21.0-32.0); Chloride 102 mmol/L (98-107); Estimated GFR (African America >60 (>=60); Estimated GFR (Non-African Ame 50 (>=60); Glucose 267 mg/dL (74-106); Magnesium 1.3 mg/dL (1.8-2.4); Potassium 4.2 mmol/L (3.5-5.1); Sodium 140 mmol/L (136-145); Total Protein 6.9 g/dL (6.4-8.2)
[2022-12-01] MEDS: ALPRAZOLAM 0.25 MG TABLET PO ×2 (06:44→20:33)
[2022-12-01] MEDS: METHYLPREDNISOLONE SOD SUCC PF 125 MG/2 ML VIAL IVP ×4 (06:44→22:32)
[2022-12-01] MEDS: GABAPENTIN 400 MG CAPSULE 800 MG PO ×3 (06:44→22:31)
--- NOTE | 2022-12-01 06:54 | XR_ITS ---
The [address] [address] Patient Name: KAM ESTES MRN: [id number] date: 1960 Sex: F Assigned Patient Location: ICU Current Patient Location: ICU Accession/Order Number: [id number] Exam Date: 12/01/2022 07:34 Report Date: 12/01/2022 07:59 At the request of: FLORIDA SOLORIO Procedure: XR chest 1V PROCEDURE: XR chest 1V DATE: 12/01/2022 6:34 AM CDT COMPARISONS: 11/29/2022 CLINICAL INDICATION: 62 years Female Dyspnea FINDINGS: The cardiomediastinal silhouette and pulmonary vasculature are within normal limits. This is a less than optimal inspiratory radiograph. There is slight perihilar and infrahilar increased interstitial markings likely representing atelectasis. There is heterogeneous opacity of the left lung base, stable from previous exam. Much of this probably represents atelectasis and fibrosis. There could be some overlying inflammatory infiltrate, although inflammatory infiltrate is considered less likely. It appears there is a small amount of left pleural fluid and pleural thickening. Old bilateral rib fractures are identified. No right pleural effusion. No pneumothorax identified. XR/XR chest 1V IMPRESSION: The chest is similar to previous exam done 11/29/2022. Much of the abnormality of the left lung base probably represents some chronic lung changes, some pleural fluid, pleural thickening and atelectasis. Electronically authenticated by: EMILIA DEVINE Date: 12/01/2022 07:59
[2022-12-01 07:51] LABS: pH ABG 7.349 (7.350-7.450)
[2022-12-01 07:53] LABS: ABG PCO2 61.3 mmHg (35.0-45.0)
[2022-12-01 07:54] LABS: Allen Test POSITIVE (POSITIVE); Base Excess ABG 8.1 mmol/L (-2.0-2.0); HCO3 ABG 33.8 mmol/L (22.0-26.0); Oxygen Saturation ABG 95.3 %; PO2 ABG 74.4 mmHg (80.0-100.0)
[2022-12-01 07:55] LABS: Liters per Minute 2; O2 Mode NC; Puncture Site RR
[2022-12-01] MEDS: DICLOFENAC SODIUM 25 MG TABLET.DR 50 MG PO ×2 (08:44→17:56)
[2022-12-01] MEDS: BUMETANIDE 10 MG in 0.9 % SODIUM CHLORIDE 160 ML 20 MG IV (08:44)
[2022-12-01] MEDS: DOXEPIN HCL 10 MG CAPSULE PO (08:45)
[2022-12-01] MEDS: CALCIUM CARBONATE 600 MG TABLET PO ×2 (08:45→20:32)
[2022-12-01] MEDS: APIXABAN 5 MG TABLET PO ×2 (08:45→20:33)
[2022-12-01] MEDS: MONTELUKAST SODIUM 10 MG TABLET PO (08:45)
[2022-12-01] MEDS: FERROUS SULFATE 325 MG TABLET PO (08:45)
[2022-12-01] MEDS: METOPROLOL SUCCINATE 50 MG TAB.ER.24H 150 MG PO (08:45)
[2022-12-01] MEDS: ROFLUMILAST 500 MCG TABLET PO (08:45)
[2022-12-01] MEDS: BUPROPION HCL 150 MG SR TABLET 12H PO ×2 (08:45→20:34)
--- NOTE | 2022-12-01 08:51 | PM.PLHP ---
History of Present Illness History of Present Illness Chief complaint: SOB, Pneumonia due to organism Meds Home Medications and Allergies Home Medications Medication Instructions Recorded Confirmed Type acetaminophen 500 mg tablet 1,000 mg PO Q6H PRN fever 11/29/22 11/29/22 History alendronate 70 mg tablet 70 mg PO QDAY 11/29/22 11/29/22 History alprazolam 0.25 mg tablet 0.25 mg PO TID PRN anxiety 11/29/22 11/29/22 History apixaban 5 mg tablet (Eliquis) 5 mg PO Q12H 11/29/22 11/29/22 History atorvastatin 10 mg tablet 10 mg PO .qhs 11/29/22 11/29/22 History budesonide-formoterol HFA 80 2 inh inhalation BID 11/29/22 11/29/22 History mcg-4.5 mcg/actuation aerosol inhaler (Symbicort) bupropion HCl (smoking deter) 150 150 mg PO BID 11/29/22 11/29/22 History mg tablet,12 hr sustained-release(smoking deterrent) calcium gluconate 650 mg tablet 650 mg PO BID 11/29/22 11/29/22 History cetirizine 10 mg tablet (24Hour 10 mg PO DAILY PRN allergy symptoms 11/29/22 11/29/22 History Allergy) diclofenac potassium 50 mg tablet 50 mg PO Q12H 11/29/22 11/29/22 History doxepin 10 mg capsule 10 mg PO BID 11/29/22 11/29/22 History ferrous sulfate 325 mg (65 mg 325 mg PO DAILY 11/29/22 11/29/22 History iron) tablet (Feosol) furosemide 20 mg tablet 40 mg PO QDAY 11/29/22 11/29/22 History furosemide 20 mg tablet (Lasix) 20 mg PO DAILY 11/29/22 11/29/22 History gabapentin 800 mg tablet 800 mg PO TID 11/29/22 11/29/22 History loperamide 2 mg capsule 2 mg PO Q6H PRN loose stool 11/29/22 11/29/22 History metoprolol succinate 100 mg 150 mg PO QDAY 11/29/22 11/29/22 History tablet,extended release 24 hr montelukast 10 mg tablet 10 mg PO DAILY 11/29/22 11/29/22 History (Singulair) omeprazole 40 mg capsule,delayed 40 mg PO DAILY 11/29/22 11/29/22 History release roflumilast 500 mcg tablet 500 mcg PO DAILY 11/29/22 11/29/22 History (Daliresp) tiotropium bromide 2.5 2 inh inhalation Q24H 11/29/22 11/29/22 History mcg/actuation mist for inhalation (Spiriva Respimat) Allergies Allergy/AdvReac Type Severity Reaction Status Date / Time codeine AdvReac Intermediate Verified 11/29/22 15:53 coumadin AdvReac Intermediate Uncoded 11/29/22 15:53 Exam Constitutional Vital Signs, click to edit/add: Last Vital Signs Temp 98.1 F 11/30/22 19:35 Pulse 100 H 12/01/22 08:00 Resp 22 12/01/22 04:37 BP 158/82 H 11/30/22 22:43 Pulse Ox 96 12/01/22 08:00 O2 Del Method Nasal Cannula 12/01/22 07:30 O2 Flow Rate 2 12/01/22 07:30 FiO2 2 11/30/22 22:43 Results Laboratory Findings ABG, PT/INR, D-dimer: ABG ABG pH 7.349 (7.350-7.450) L 12/01/22 07:27 ABG pCO2 61.3 mmHg (35.0-45.0) H* 12/01/22 07:27 ABG pO2 74.4 mmHg (80.0-100.0) L 12/01/22 07:27 ABG O2 Saturation 95.3 % 12/01/22 07:27 Abnormal lab findings: Abnormal Labs 11/29/22 11/29/22 11/29/22 15:55 17:20 17:35 WBC RBC 2.70 L Hgb 7.5 L Hct 26.2 L MCHC 28.6 L RDW 16.0 H Plt Count 140 L Neut % (Auto) Lymph % (Auto) Eos % (Auto) Baso % (Auto) Lymph # (Auto) 1.1 L [place] # (Auto) Abs Immat Gran (auto) Monocytes % (Manual) Basophils % (Manual) Imm/Tot Granulo (auto) Lymphocytes # (Manual) Monocytes # (Manual) ABG pH ABG pCO2 ABG pO2 ABG HCO3 ABG Base Excess ABG Methemoglobin Potassium 6.2 H* Carbon Dioxide 35.2 H BUN 47.0 H Creatinine 1.42 H Est GFR ( Amer) 45 L Est GFR (Non-Af Amer) 37 L Glucose 110 H Magnesium Total Bilirubin NT-Pro-B Natriuret Pep Albumin Urine Protein 100 A Urine WBC 5-10 A Urine Yeast Seen A Staphylococcus sp PCR Detected A* mecA/C-Methicil Resis Gene Detected A* Staph epidermidis (PCR) Detected A* Crossmatch 11/29/22 11/29/22 11/30/22 21:00 23:40 04:00 WBC RBC 2.53 L Hgb 7.0 L Hct 24.3 L MCHC 28.8 L RDW 15.5 H Plt Count 114 L Neut % (Auto) Lymph % (Auto) Eos % (Auto) Baso % (Auto) Lymph # (Auto) [place] # (Auto) Abs Immat Gran (auto) Monocytes % (Manual) 0.0 L Basophils % (Manual) 0.0 L Imm/Tot Granulo (auto) Lymphocytes # (Manual) 1.03 L Monocytes # (Manual) 0.00 L ABG pH 7.188 L* 7.265 L* ABG pCO2 85.9 H* 71.3 H* ABG pO2 213.0 H ABG HCO3 32.6 H 32.3 H ABG Base Excess 4.4 H 5.3 H ABG Methemoglobin <1.0 L Potassium 5.5 H Carbon Dioxide BUN 38.0 H Creatinine 1.10 H Est GFR ( Amer) Est GFR (Non-Af Amer) 50 L Glucose 128 H Magnesium 1.7 L Total Bilirubin 0.1 L NT-Pro-B Natriuret Pep 3508.0 H* Albumin 2.6 L Urine Protein Urine WBC Urine Yeast Staphylococcus sp PCR mecA/C-Methicil Resis Gene Staph epidermidis (PCR) Crossmatch 11/30/22 11/30/22 12/01/22 04:55 08:17 04:40 WBC 3.4 L RBC 3.62 L Hgb 10.1 L Hct 32.5 L MCHC RDW 15.8 H Plt Count 134 L Neut % (Auto) 82.5 H Lymph % (Auto) 13.7 L Eos % (Auto) 0.0 L Baso % (Auto) 0.0 L Lymph # (Auto) 0.5 L [place] # (Auto) 0.1 L Abs Immat Gran (auto) 0.05 H Monocytes % (Manual) Basophils % (Manual) Imm/Tot Granulo (auto) 1.5 H Lymphocytes # (Manual) Monocytes # (Manual) ABG pH 7.302 L ABG pCO2 63.8 H* ABG pO2 79.8 L ABG HCO3 31.5 H ABG Base Excess 5.1 H ABG Methemoglobin Potassium Carbon Dioxide 32.6 H BUN 35.0 H Creatinine 1.10 H Est GFR ( Amer) Est GFR (Non-Af Amer) 50 L Glucose 267 H Magnesium 1.3 L Total Bilirubin NT-Pro-B Natriuret Pep 59103.0 H* Albumin 2.9 L Urine Protein Urine WBC Urine Yeast Staphylococcus sp PCR mecA/C-Methicil Resis Gene Staph epidermidis (PCR) Crossmatch See Detail 12/01/22 07:27 WBC RBC Hgb Hct MCHC RDW Plt Count Neut % (Auto) Lymph % (Auto) Eos % (Auto) Baso % (Auto) Lymph # (Auto) [place] # (Auto) Abs Immat Gran (auto) Monocytes % (Manual) Basophils % (Manual) Imm/Tot Granulo (auto) Lymphocytes # (Manual) Monocytes # (Manual) ABG pH 7.349 L ABG pCO2 61.3 H* ABG pO2 74.4 L ABG HCO3 33.8 H ABG Base Excess 8.1 H ABG Methemoglobin Potassium Carbon Dioxide BUN Creatinine Est GFR ( Amer) Est GFR (Non-Af Amer) Glucose Magnesium Total Bilirubin NT-Pro-B Natriuret Pep Albumin Urine Protein Urine WBC Urine Yeast Staphylococcus sp PCR mecA/C-Methicil Resis Gene Staph epidermidis (PCR) Crossmatch Assessment and Plan Assessment and Plan (1) Pneumonia due to organism: Plan 1. Healthcare-acquired pneumonia. Present on admission, LLL infiltrate on CXR. Continue antibiotics. 2. Acute exacerbation of COPD. Has underlying centrilobular emphysema. Continue bronchodilators. Adjusted nebulized medications. She is to be on Symbicort 160 and Spiriva 2.5 outpatient according to my notes. Unclear how much benefit patient has with Daliresp +/- Singulair, but given her severe COPD, would err on the side of caution and continue it. 3. Acute hypercapnic respiratory failure. Secondary to the above. Did not tolerate BiPAP; placed on Vapotherm. Attempting to avoid intubation unless absolutely necessary. Monitor ABGs closely - slow improvement with pH up to 7.3 and pCO2 down to 64. 4. Mvtgu-ao-imdugey hypoxic respiratory failure. Baseline FiO2 3L/min ATC; was hypoxic on this flow (in the 80's). Continue O2, goal SpO2 90-92% - avoid hyperoxia. 5. Obstructive sleep apnea. Patient is noncompliant. Office visit 10/26/2022 was a he said she said issue regarding PAP compliance...patient claimed she was using it, but compliance data pulled showed ZERO compliance for >4 hours of any day. She did not tolerate the BiPAP here for hypercapnia. 6. Hyperkalemia. Secondary to extracellular shift due to acidosis. Should improve as acidosis improves. 7. Iron deficiency anemia. Hb dropped to 7g/dL today. Increased Hb would improve O2/CO2 carrying capacity - recommend transfusion of PRBCs. 8. Rhinitis sicca with associated epistaxis. Secondary to O2 per nasal cannula/Vapotherm. Add [place] gel. Patient's son was counseled to never use petroleum-based products with nasal cannulae. 9. Abnormal UA. Awaiting C&S. 10. Toxic metabolic encephalopathy. Multifactorial, including hypercapnia, pneumonia, and possible UTI. Mentation improved some with partial correction of hypercapnia, but still remains confused. 11. Morbid obesity. BMI 44.2, inducing a restrictive pulmonary physiology. Patient lives a relatively sedentary lifestyle. Decreased calories, increased activity recommended. 12. History of NSTEM type 2. Monitor for any s/sx of IA.
--- NOTE | 2022-12-01 08:51 | PM.PLPN ---
Progress Note: A&P Assessment and Plan (1) Pneumonia due to organism: Plan 1. Healthcare-acquired pneumonia. ? No identified agent so far.? Continue antibiotics.? CXR unchanged. 2. Acute exacerbation of COPD.? Patient is overusing albuterol.? Issue outpatient, but markedly increased during this hospitalization, especially overnight.? Alleging that she is not receiving treatments (though she is).? She does not sound ?tight? or wheezy at this point.? Despite educating patient that the treatment for her perceived dyspnea would be better with diuresis rather than continuing bronchodilators, she expressed no insight despite explaining the situation, and became agitated and aggressive demanding further treatments.? Based on history, it appears that it is more of a psychological addiction than actual physical need for bronchodilators.? Patient was then administered sodium chloride 0.9% neb treatment with subjective improvement, further suggesting a psychological contribution.? For now, will have sodium chloride 0.9% Q2H PRN for dyspnea here in the hospital for her use as excessive albuterol use is not indicated and can be causing more harm than good.? However, if there is actual wheezing auscultated, or if the sodium chloride is not relieving her dyspnea, DuoNeb is still available on the chart for the patient. 3. Acute hypercapnic respiratory failure.? Secondary to the above.? Continues to improve on ABG. 4. Iwwyo-up-huyocpt hypoxic respiratory failure.? Improved oxygenation. 5. Obstructive sleep apnea.? History of non-compliance.? Compliance documentation in the past shows 0% compliance for >4hr/night use.? Use of PAP could improve her overall respirator status. 6. Hyperkalemia.? Secondary to extracellular shift due to acidosis.? Improved. 7. Iron deficiency anemia.? Transfused 11/30/2022.? 8. Rhinitis sicca with associated epistaxis.? Secondary to O2 per nasal cannula/Vapotherm.? Use [place] gel, saline nasal spray. 9. Abnormal UA.? Awaiting C&S. 10. Toxic metabolic encephalopathy.?Continues to have some confusion; hypercapnia resolved, so some other cause is contributing to her altered mentation. 11. Morbid obesity.? BMI 44.2, inducing a restrictive pulmonary physiology.? Weight loss advised.? As she is sedentary, this means decreasing calories in. 12. History of NSTEM type 2.? Monitor for any s/sx of MS. Subjective Subjective Interval history: Hb dropped to 7 yesterday, had PRBC transfusion, Hb improved to 10. However, patient seems more edematous, BNP increased to 11k. ABG improved . . . trending right direction. Oxygenation improved as well, on 2L/min traditional NC. The patient has been demanding breathing treatments (i.e. DuoNeb) almost every 2-3 hours stating I can't breathe! This was an issue when I saw her last month; the ECF noted that she was concerned about albuterol overuse at that time. The patient is stating I can't breathe! Though on examination, she does not sound bad, her vitals are not critical, saturation is ~95%, and does not appear to be in labored breathing. She received a DuoNeb ~04:15 this morning, and when I saw her ~06:50 this morning, she was requesting another one. When the RT and I addressed that she had received one not even 3 hours prior, she stated we were lying (even though it is documented otherwise). She has a baseline tremor, but it is markedly worse now, which is highly likely exacerbated from albuterol. I explained to her that dyspnea at this point would be more related to volume overload & pulmonary edema, and the treatment would be diuresis, not further bronchodilators. (She was given Lasix yesterday, but did not produce much UO). The patient did not accept this answer. She was becoming agitated at this point, exclaiming I need a breathing treatment! I explained that albuterol overuse can reduce its efficacy (tachyphylaxis) and is not indicated for her right now, and can make things worse. She then began banging her fists against the railing, once again shouting I need a breathing treatment! At this point, I had the RT give her a regular sodium chloride 0.9% neb treatment, which the patient tolerated well, and appeared satisfied with decreased agitation. Exam Constitutional Vital Signs, click to edit/add: Last Vital Signs Temp 98.1 F 11/30/22 19:35 Pulse 100 H 12/01/22 08:00 Resp 22 12/01/22 04:37 BP 158/82 H 11/30/22 22:43 Pulse Ox 96 12/01/22 08:00 O2 Del Method Nasal Cannula 12/01/22 07:30 O2 Flow Rate 2 12/01/22 07:30 FiO2 2 11/30/22 22:43 Documenting provider has reviewed patient's vital signs: yes Common normals: no apparent distress General appearance: combative; not cooperative and not in distress Nutritional appearance: obese Orientation/consciousness: Yes confused HENMT Other: Wearing nasal cannula Chest Common normals: inspection of chest normal Respiratory Common normals: normal respiratory effort and no use of accessory muscles Effort & inspection: able to speak in complete sentences; not labored Auscultation: crackles Laterality: bilateral throughout (Moist, mild) Cardio Rate: regular rate Rhythm: regular rhythm GI Inspection: central obesity Bladder/kidney exam: catheter in place Extremity General: edema (Trace BLE); no cyanosis Neuro Motor exam: tremor resting tremor bialteral upper extremity Psych Attitude: uncooperative, agitated and aggressive Mood and affect: irritable Thought process: confused
--- NOTE | 2022-12-01 09:25 | P.PN_ITS ---
Progress Note: Subjective Subjective Interval history: No new complaints today. Does seem more anxious. Tremor worse today. But that is her baseline also. Exam Constitutional Vital Signs, click to edit/add: Last Vital Signs Temp 98.1 F 11/30/22 19:35 Pulse 100 H 12/01/22 08:00 Resp 22 12/01/22 04:37 BP 158/82 H 11/30/22 22:43 Pulse Ox 96 12/01/22 08:00 O2 Del Method Nasal Cannula 12/01/22 07:30 O2 Flow Rate 2 12/01/22 07:30 FiO2 2 11/30/22 22:43 Common normals: apparent distress (Mild respiratory distress) Exam limitations: altered mental status (seems better than yesterday) Chest Common normals: inspection of chest normal Respiratory Common normals: abnormal respiratory effort Effort & inspection: able to speak in complete sentences Auscultation: diminished lung sounds Cardio Rate: regular rate GI Common normals: Normal to inspection, nondistended, normoactive bowel sounds present Progress Note: Objective Labs Labs: Short CBC 12/01/22 Range/Units 04:40 WBC 3.4 L (4.0-11.0) 10^3/uL Hgb 10.1 L (12.0-16.0) g/dL Hct 32.5 L (36.0-48.0) % Plt Count 134 L (150-450) 10^3/uL BMP 12/01/22 04:40 Sodium 140 Potassium 4.2 Chloride 102 Carbon Dioxide 32.6 H BUN 35.0 H Creatinine 1.10 H Glucose 267 H Calcium 9.0 Liver Function 12/01/22 Range/Units 04:40 Total Bilirubin 0.2 (0.2-1.0) mg/dL AST 17 (15-37) U/L ALT 21 (14-59) U/L Alkaline Phosphatase 89 (46-116) U/L Albumin 2.9 L (3.4-5.0) g/dL Progress Note: A&P Assessment and Plan (1) Pneumonia due to organism: Plan HCAP with Acute hypoxic resp failure with hypercapnea leading to acute exacerbation copd - Steroids, Aeresol, -discussed case with pulmonology. Hyperkalemia - adjust meds - serial testing - treated in Er - Improved Anemia - < 8 - repeat in Am - likely needs transfused - check stool for Occ Blood-We will receive 2 units of PRBCs this morning Anxiety =- has as needed benzodiazepine. We will add Abilify for during the day And increase her doxepin Abn U/A 0 -check on culture, pending Hypertension - on meds - monitor - adjust meds further today. S obstructive sleep apnea-patient refuses to wear a mask at nighttime Morbid obesity - diet management fluid overload. Needed the blood yesterday. BNP elevated today. We will try patient on Bumex drip. With Respo failure, change to in-patient status - likely 3-4 day hosp stay
--- NOTE | 2022-12-01 09:30 | CM.NOTE ---
Rounds made with Dr. Curiel, pt to transfer to Med-Surg today. Continue treatment, no discharge today.
[2022-12-01] MEDS: BUDESONIDE 0.5 MG/2 ML AMPULE NEB IH ×2 (10:43→22:02)
[2022-12-01 12:27] LABS: Occult Blood Positive
[2022-12-01] MEDS: SODIUM CHLORIDE 3% INHALATION 15 ML NEB 3 ML IH (14:07)
[2022-12-01] MEDS: HYDRALAZINE HCL 50 MG TABLET PO ×3 (14:50→22:31)
--- NOTE | 2022-12-01 15:00 | XR_ITS ---
The [address] [address] Patient Name: KAM ESTES MRN: [id number] date: 1960 Sex: F Assigned Patient Location: ICU Current Patient Location: ICU Accession/Order Number: [id number] Exam Date: 12/01/2022 15:00 Report Date: 12/01/2022 15:40 At the request of: MARLENE LEVI Procedure: XR chest 2V EXAM: XR chest 2V HISTORY: dyspnea COMPARISON: 12/02/2019 6:24 AM, 11/29/2022, 07/31/2022 TECHNIQUE: AP and lateral views of the chest FINDINGS: The level of inspiration is suboptimal. Stable left lung base opacity is again noted. There are bibasilar reticular opacities, likely represent atelectasis or scarring. The cardiomediastinal silhouette is not enlarged. Small left pleural effusion or pleural thickening is again identified. No evidence of right pleural effusion is identified. No pneumothorax is seen. No acute osseous abnormality. XR/XR chest 2V IMPRESSION: Stable imaging findings with left lung base opacity which likely represent a combination of atelectasis and small pleural effusion/thickening. However, underlying infectious process cannot be excluded at the left lung base in the appropriate clinical settings. Chest CT is recommended if symptoms worsen or persist. Electronically authenticated by: EDENILSON DEGROOTU Date: 12/01/2022 15:40
[2022-12-01] MEDS: HYDRALAZINE HCL 20 MG/ML VIAL IVP (15:11)
[2022-12-01] MEDS: DOXEPIN HCL 10 MG CAPSULE 25 MG PO (20:35)
[2022-12-01] MEDS: LEVOFLOXACIN IN DEXTROSE 5 % 750 MG/150 ML PIGGYBACK IV (22:30)
[2022-12-01] MEDS: ATORVASTATIN CALCIUM 10 MG TABLET PO (22:31)
[2022-12-01] MEDS: PANTOPRAZOLE SODIUM 40 MG VIAL IV (22:31)
[2022-12-02] VITALS (7 sets, daily range): BP systolic 163–202; BP diastolic 91–111; PULSE 74–87; RESP 18–23; TEMP 36.6; O2SAT 92–99
[2022-12-02] MEDS: SODIUM CHLORIDE 0.9% INHALATION 3 ML NEB IH (01:43)
[2022-12-02 04:24] LABS: Basophils Percent Auto 0.2 % (0.2-2.0); Hematocrit 34.6 % (36.0-48.0); Hemoglobin 10.9 g/dL (12.0-16.0); Immature Granulocytes Abs Auto 0.19 10^3/uL (0.00-0.03); Immature Granulocytes Pct Auto 4.2 % (0.0-0.5); Lymphocytes Absolute Auto 0.4 10^3/uL (1.2-3.8); Lymphocytes Percent Auto 8.5 % (20.5-60.0); Mean Corpuscular HGB Conc 31.5 g/dL (29.9-35.2); Mean Corpuscular Hemoglobin 28.2 pg (26.7-34.0); Mean Corpuscular Volume 89.6 fL (81.0-99.0); Mean Platelet Volume 10.2 fL (9.5-13.5); Monocytes Absolute Auto 0.2 10^3/uL (0.3-0.8); Monocytes Percent Auto 4.5 % (1.7-12.0); Neutrophils Absolute Auto 3.7 10^3/uL (1.4-6.5); Neutrophils Percent Auto 82.6 % (43.0-75.0); Platelet Count 146 10^3/uL (150-450); Red Blood Count 3.86 10^6/uL (4.20-5.40); Red Cell Distribution Width 15.3 % (11.0-15.0); White Blood Count 4.5 10^3/uL (4.0-11.0)
[2022-12-02 04:39] LABS: Alanine Aminotransferase 19 U/L (14-59); Albumin Globulin Ratio 0.7; Albumin Level 2.9 g/dL (3.4-5.0); Alkaline Phosphatase 83 U/L (46-116); Anion Gap 8.6; Aspartate Amino Transferase 15 U/L (15-37); BUN Creatinine Ratio 31.9; Bilirubin Total 0.2 mg/dL (0.2-1.0); Calcium 9.5 mg/dL (8.5-10.1); Carbon Dioxide 36.1 mmol/L (21.0-32.0); Chloride 98 mmol/L (98-107); Estimated GFR (African America 55 (>=60); Estimated GFR (Non-African Ame 46 (>=60); Globulin 4.2 g/dL; Glucose 356 mg/dL (74-106); Magnesium 1.2 mg/dL (1.8-2.4); Phosphorus 2.8 mg/dL (2.6-4.7); Potassium 3.7 mmol/L (3.5-5.1); Sodium 139 mmol/L (136-145); Total Protein 7.1 g/dL (6.4-8.2)
[2022-12-02] MEDS: IPRATROPIUM/ALBUTEROL SULFATE 3 ML AMPUL.NEB IH ×2 (04:56→09:01)
[2022-12-02] MEDS: HYDRALAZINE HCL 50 MG TABLET PO (05:51)
[2022-12-02] MEDS: METHYLPREDNISOLONE SOD SUCC PF 125 MG/2 ML VIAL IVP (05:51)
[2022-12-02] MEDS: GABAPENTIN 400 MG CAPSULE 800 MG PO (05:51)
[2022-12-02] MEDS: CLONIDINE HCL 0.1 MG TABLET PO (07:52)
--- NOTE | 2022-12-02 08:45 | P.DS_ITS ---
DS: Providers Provider Date of admission: 11/29/22 18:33 Primary care physician: Asael Curiel MD Consults: 11/29/22 Consult to Director Electrical Engineering Routine Reason for consult:: Medical/financial 11/29/22 18:52 Consult to Pulmonology Routine Consulting Provider: Leandro Cardenas Occupational Therapy Eval and Treat Routine Physical Therapy Eval and Treat Routine DS: Diagnosis Discharge Diagnosis (1) Pneumonia due to organism: [place] [address] Progress Note Signed Patient: KAM ESTES MR#: [id number] : 1960 Acct:[id number] Age/Sex: 62 / F ADM Date: 11/29/22 Loc: ICU 273-1 Date of Service:12/01/[address]: Asael Curiel M.D. cc: Asael Curiel M.D.~ Progress Note: Subjective Subjective Interval history: No new complaints today.? Does seem more anxious.? Tremor worse today.? But that is her baseline also. Exam Constitutional Vital Signs, click to edit/add: Last Vital Signs Temp ?98.1 F ?11/30/22 19:35 Pulse ?100 H ?12/01/22 08:00 Resp ?22 ?12/01/22 04:37 BP ?158/82 H ?11/30/22 22:43 Pulse Ox ?96 ?12/01/22 08:00 O2 Del Method ?Nasal Cannula ?12/01/22 07:30 O2 Flow Rate ?2 ?12/01/22 07:30 FiO2 ?2 ?11/30/22 22:43 Common normals: apparent distress (Mild respiratory distress) Exam limitations: altered mental status (seems better than yesterday) Chest Common normals: inspection of chest normal Respiratory Common normals: abnormal respiratory effort Effort & inspection: able to speak in complete sentences Auscultation: diminished lung sounds Cardio Rate: regular rate GI Common normals: Normal to inspection, nondistended, normoactive bowel sounds present Progress Note: Objective Labs Labs: Short CBC ? 12/01/22 Range/Units ? 04:40 ? WBC ?3.4 L ?(4.0-11.0)? 10^3/uL Hgb ?10.1 L ?(12.0-16.0)? g/dL Hct ?32.5 L ?(36.0-48.0)? % Plt Count ?134 L ?(150-450)? 10^3/uL BMP ? 12/01/22 ? 04:40 Sodium ?140 Potassium ?4.2 Chloride ?102 Carbon Dioxide ?32.6 H BUN ?35.0 H Creatinine ?1.10 H Glucose ?267 H Calcium ?9.0 Liver Function ? 12/01/22 Range/Units ? 04:40 ? Total Bilirubin ?0.2 ?(0.2-1.0)? mg/dL AST ?17 ?(15-37)? U/L ALT ?21 ?(14-59)? U/L Alkaline Phosphatase ?89C ?(46-116)? U/L Albumin ?2.9 L ?(3.4-5.0)? g/dL Progress Note: A&P Assessment and Plan (1) Pneumonia due to organism: Plan HCAP with Acute hypoxic resp failure with hypercapnea leading to acute exacerbation copd - Steroids, Aeresol,? -discussed case with pulmonology. Hyperkalemia - adjust meds - serial testing - treated in Er - Improved Anemia - < 8 - repeat in Am - likely needs transfused - check stool for Occ Blood-We will receive 2 units of PRBCs this morning Anxiety =-??has as needed benzodiazepine.? We will add Abilify for during the day And increase her doxepin Abn U/A 0 -check on culture, pending Hypertension - on meds - monitor -? adjust meds further today.? S obstructive sleep apnea-patient refuses to wear a mask at nighttime Morbid obesity - diet management fluid overload.? Needed the blood yesterday.? BNP elevated today.? We will try patient on Bumex drip.? With Respo failure, change to in-patient status - likely 3-4 day hosp stay DS: Summary Hospital Course Hospital Course: I had seen the patient in about 3 days prior to admission for routine rounds. She had no issues at that time. Over the 24 hours prior to coming in she had increasing shortness of breath. She does not wear her CPAP at nighttime. In ER found to have acute hypoxic respiratory failure. Admitted to the Medr floor initially, repeat ABG showed increasing CO2. Patient was confusion was increasing and she was transferred back to the ICU. There she was placed on BiPAP. She did not tolerate that was changed to Vapotherm. She did tolerate that better and over the next 24 hours was weaned down to nasal cannula. She has been weaned down to her baseline of 2 L. She did have some fluid overload yesterday. Diuresed well today. BNP is still elevated but I suspect that is more of a lag. She did have good urine output and her edema is much less. At this point she is back to her baseline. Discussed with pulmonology and they agr ee. To be [facility] care. Medications of this. I will continue to follow patient at rehab Status at Discharge Functional status at discharge: wheelchair bound Overall status at discharge: patient is back to baseline Time Spent with Patient Time attestation: Total time spent providing and/or coordinating discharge services: Exam Constitutional Vital Signs, click to edit/add: Last Vital Signs Temp 97.6 F 12/01/22 20:00 Pulse 74 12/02/22 04:59 Resp 20 12/02/22 04:59 BP 164/92 H 12/02/22 07:52 Pulse Ox 95 12/02/22 04:59 O2 Del Method Nasal Cannula 12/02/22 04:59 O2 Flow Rate 2 12/02/22 04:59 FiO2 2 11/30/22 22:43 Documenting provider has reviewed patient's vital signs: yes Common normals: no apparent distress Nutritional appearance: obese HENMT Other: Wearing nasal cannula. Chest Common normals: inspection of chest normal Respiratory Common normals: normal respiratory effort and no use of accessory muscles Auscultation: crackles (scattered) and diminished lung sounds Cardio Rhythm: abnormal rhythm irregularly irregular GI Inspection: central obesity Bladder/kidney exam: catheter in place Extremity General: no edema Neuro Motor exam: tremor resting tremor bialteral upper extremity (Appears to be baseline - not as intense as yesterday morning) Psych Attitude: calm; not agitated Activity/motor behavior: appropriate eye contact Speech: normal speech DS: Data Data Completed and Pending Labs on day of discharge: Labs from last 24 hours 12/02/22 12/01/22 03:54 09:40 WBC 4.5 RBC 3.86 L Hgb 10.9 L Hct 34.6 L MCV 89.6 MCH 28.2 MCHC 31.5 RDW 15.3 H Plt Count 146 L MPV 10.2 Neut % (Auto) 82.6 H Lymph % (Auto) 8.5 L Pennington % (Auto) 4.5 Eos % (Auto) 0.0 L Baso % (Auto) 0.2 Neut # (Auto) 3.7 Lymph # (Auto) 0.4 L [place] # (Auto) 0.2 L Eos # (Auto) 0.0 Baso # (Auto) 0.0 Abs Immat Gran (auto) 0.19 H Imm/Tot Granulo (auto) 4.2 H Sodium 139 Potassium 3.7 Chloride 98 Carbon Dioxide 36.1 H Anion Gap 8.6 BUN 38.0 H Creatinine 1.19 H Est GFR ( Amer) 55 L Est GFR (Non-Af Amer) 46 L BUN/Creatinine Ratio 31.9 Glucose 356 H Calcium 9.5 Phosphorus 2.8 Magnesium 1.2 L Total Bilirubin 0.2 AST 15 ALT 19 Alkaline Phosphatase 83 NT-Pro-B Natriuret Pep 07314.0 H* Total Protein 7.1 Albumin 2.9 L Globulin 4.2 Albumin/Globulin Ratio 0.7 Stool Occult Blood Positive A Preliminary micro results at discharge 11/29/22 17:40 - Preliminary Blood NO GROWTH AT 36-48 HOURS. FINAL TO FOLLOW. 11/29/22 17:35 Blood Culture Result 1 - Preliminary Blood Staphylococcus epidermidis 11/29/22 17:20 - Preliminary Urine,Clean Catch Raoultella ornithinolytica Discharge Plan Discharge Disposition: Xfer SNF Condition: Good Discharge Medications: New clonidine HCl 0.1 mg Tablet 0.1 mg PO TID Qty: 90 11RF ipratropium-albuterol 0.5 mg-3 mg(2.5 mg base)/3 mL Solution For Nebulization 3 ml inhalation Q6H Qty: 180 11RF ipratropium-albuterol 0.5 mg-3 mg(2.5 mg base)/3 mL Solution For Nebulization 3 ml inhalation Q2H PRN (Reason: Shortness Of Breath Or Wheezing) Qty: 180 11RF doxepin 10 mg Capsule 25 mg PO BID Qty: 60 11RF benzonatate 100 mg Capsule 200 mg PO Q8H PRN (Reason: Cough) Qty: 90 11RF hyoscyamine sulfate 0.125 mg Tablet, Sublingual 0.125 mg sublingual QID PRN (Reason: Cramping) Qty: 120 11RF furosemide 20 mg Tablet 40 mg PO QDAY Qty: 60 11RF nystatin [Nystop] 100,000 unit/gram Powder 1 applic topical BID Qty: 60 11RF aripiprazole 5 mg Tablet 5 mg PO QAM Qty: 30 11RF prednisone 10 mg tablet 50 mg PO DAILY Qty: 47 0RF Rx Instructions: 5/day for 3 days. 4/day for 3 days, 3/day for 3 days, 2/day for 3 days, 1/day for 3 days, 1/2 /day for 4 days levofloxacin 500 mg tablet 500 mg PO Q24H 10 Days Qty: 10 0RF Continued alendronate 70 mg tablet 70 mg PO QDAY alprazolam 0.25 mg tablet 0.25 mg PO TID PRN (Reason: anxiety) Eliquis 5 mg tablet 5 mg PO Q12H bupropion HCl (smoking deter) 150 mg tablet extended release 12 hr 150 mg PO BID diclofenac potassium 50 mg tablet 50 mg PO Q12H gabapentin 800 mg tablet 800 mg PO TID metoprolol succinate 100 mg tablet extended release 24 hr 150 mg PO QDAY acetaminophen 500 mg tablet 1,000 mg PO Q6H PRN (Reason: fever) atorvastatin 10 mg tablet 10 mg PO .qhs calcium gluconate 650 mg tablet 650 mg PO BID ferrous sulfate [Feosol] 325 mg (65 mg iron) tablet 325 mg PO DAILY montelukast [Singulair] 10 mg tablet 10 mg PO DAILY omeprazole 40 mg capsule,delayed release(DR/EC) 40 mg PO DAILY roflumilast [Daliresp] 500 mcg tablet 500 mcg PO DAILY Spiriva Respimat 2.5 mcg/actuation mist 2 inh inhalation Q24H budesonide-formoterol [Symbicort] 80-4.5 mcg/actuation HFA aerosol inhaler 2 inh inhalation BID cetirizine [24Hour Allergy] 10 mg tablet 10 mg PO DAILY PRN (Reason: allergy symptoms) loperamide 2 mg capsule 2 mg PO Q6H PRN (Reason: loose stool) Discontinued doxepin 10 mg capsule 10 mg PO BID furosemide 20 mg tablet 40 mg PO QDAY furosemide [Lasix] 20 mg tablet 20 mg PO DAILY Laboratory Analyst/Batch Freezer Instructions: 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 Forms: Portal Instructions
--- NOTE | 2022-12-02 08:51 | CM.NOTE ---
Rounds made with Dr. Curiel, pt will discharge today back to [facility]. Dr. Cardenas at bedside and also in agreement.
--- NOTE | 2022-12-02 09:12 | P.PLPN_ITS ---
Progress Note: A&P Assessment and Plan (1) Pneumonia due to organism: Plan 1. Healthcare-acquired pneumonia. ? Complete antibiotic course. 2. Acute exacerbation of COPD.? History of albuterol overuse (both out- and in- patient).? 3. Acute hypercapnic respiratory failure.? Discussed need for BiPAP, which patie nt has been non-compliant with PAP for [employer] in the past.? Counseled on risks of non-use of PAP. 4. Qakrz-ad-yzaqetg hypoxic respiratory failure.? Near/at baseline. 5. Obstructive sleep apnea.? Non-compliant with PAP use. 6. Hyperkalemia.? Secondary to extracellular shift due to acidosis.? Im 7. Iron deficiency anemia.? Transfused 11/30/2022.? 8. Rhinitis sicca with associated epistaxis.? Saline nasal spray/gel PRN. 10. Toxic metabolic encephalopathy.?Improved with improvement in elevated CO2. 11. Morbid obesity.? BMI 44.2, inducing a restrictive pulmonary physiology.? Patient needs to lose weight.? Decrease caloric intake as she is sedentary. 12. History of NSTEM type 2.? Her next appointment is 12/09/2022 @ 09:00 - she should keep that. Subjective Subjective Interval history: Discussed with RN. Patient has been better since yesterday - less agitated, less tremulous, more alert. Patient had not requested frequent neb treatments overnight, but started again this AM. She diuresed ~4L yesterday with Bumex. Had long talk with patient about non-compliance with PAP use (despite what she says, the compliance data noted poor usage). Now that she is retaining CO2, explained she is at increased risk of exacerbations that could lead to intubation or even . Exam Constitutional Vital Signs, click to edit/add: Last Vital Signs Temp 97.6 F 12/01/22 20:00 Pulse 74 12/02/22 04:59 Resp 20 12/02/22 04:59 BP 164/92 H 12/02/22 07:52 Pulse Ox 92 L 12/02/22 08:43 O2 Del Method Nasal Cannula 12/02/22 08:43 O2 Flow Rate 2 12/02/22 08:43 FiO2 2 11/30/22 22:43 Documenting provider has reviewed patient's vital signs: yes Common normals: no apparent distress Nutritional appearance: obese HENMT Other: Wearing nasal cannula. Chest Common normals: inspection of chest normal Respiratory Common normals: normal respiratory effort and no use of accessory muscles Auscultation: crackles (scattered) and diminished lung sounds Cardio Rhythm: abnormal rhythm irregularly irregular GI Inspection: central obesity Bladder/kidney exam: catheter in place Extremity General: no edema Neuro Motor exam: tremor resting tremor bialteral upper extremity (Appears to be baseline - not as intense as yesterday morning) Psych Attitude: calm; not agitated Activity/motor behavior: appropriate eye contact Speech: normal speech
--- NOTE | 2022-12-02 09:42 | SWNOTE1 ---
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
[2022-12-02] MEDS: ARIPIPRAZOLE 5 MG TABLET PO (10:11)
[2022-12-02] MEDS: FERROUS SULFATE 325 MG TABLET PO (10:11)
[2022-12-02] MEDS: APIXABAN 5 MG TABLET PO (10:11)
[2022-12-02] MEDS: METOPROLOL SUCCINATE 50 MG TAB.ER.24H 150 MG PO (10:11)
[2022-12-02] MEDS: ROFLUMILAST 500 MCG TABLET PO (10:11)
[2022-12-02] MEDS: MONTELUKAST SODIUM 10 MG TABLET PO (10:11)
[2022-12-02] MEDS: CALCIUM CARBONATE 600 MG TABLET PO (10:11)
[2022-12-02] MEDS: ALPRAZOLAM 0.25 MG TABLET PO (10:12)
[2022-12-02] MEDS: DICLOFENAC SODIUM 25 MG TABLET.DR 50 MG PO (10:12)
[2022-12-02] MEDS: BUPROPION HCL 150 MG SR TABLET 12H PO (10:26)
[2022-12-02] MEDS: FUROSEMIDE 20 MG TABLET 40 MG PO (10:26)
--- NOTE | 2022-12-02 10:27 | SWNOTE1 ---
MEL set up trips transportation for pt to return to [facility]st[facility]. MEL set up trips transportation for 11-11:30. SW notified [facility], pt's son, and nursing of time. MEL sent over dc orders and updated packet.
--- NOTE | 2022-12-02 10:55 | PC.NURSE ---
Pt refused to take oral Doxepen, stated she has took enough. Pharmacy had to correct from caps to tabs for proper dosing.
--- NOTE | 2022-12-02 11:42 | PC.NURSE ---
Report called to Chiquis at [facility], discussed facility ordering long acting insulin, aware sliding scale was used during hospital stay. Prior to pt departing all IV were removed, significant bleeding to left anticub. Secured both with gauze, kerlix and coban. Discharge instructions sent with pt via wheel chair.
== END 2022-12-02 11:44 | DRG 139 ==
LOC: ER 17:55 → MS 18:47 → ICU 22:11
PROVIDERS: Internal Medicine; Admitting Provider Family Medicine; Emergency Provider Emergency Medicine; PCP Family Medicine; Visit Provider Family Medicine
DX: J18.9 Pneumonia, unspecified organism (principal); Y95 Nosocomial condition; E87.5 Hyperkalemia; F41.9 Anxiety disorder, unspecified; I10 Essential (primary) hypertension; G47.33 Obstructive sleep apnea (adult) (pediatric); Z91.199 Patient's noncompliance with other medical treatment and regimen due to unspecified reason; E87.70 Fluid overload, unspecified; R41.82 Altered mental status, unspecified; E66.01 Morbid (severe) obesity due to excess calories; J96.02 Acute respiratory failure with hypercapnia; J43.2 Centrilobular emphysema; J96.21 Acute and chronic respiratory failure with hypoxia; D50.9 Iron deficiency anemia, unspecified; J31.0 Chronic rhinitis; R04.0 Epistaxis; G92.8 Other toxic encephalopathy; Z68.41 Body mass index [BMI] 40.0-44.9, adult; I25.2 Old myocardial infarction; T48.6X1A Poisoning by antiasthmatics, accidental (unintentional), initial encounter; R82.90 Unspecified abnormal findings in urine; Z79.01 Long term (current) use of anticoagulants; Z79.1 Long term (current) use of non-steroidal anti-inflammatories (NSAID); Z79.899 Other long term (current) drug therapy; Z88.8 Allergy status to other drugs, medicaments and biological substances
CPT/HCPCS: 36415; 36430; 36600; 51702; 71045; 71046; 80048; 80053; 81003; 81015; 82375; 82805; 83050; 83605; 83735; 83880; 84100; 84484; 85007; 85025; 86850; 86900; 86901; 86920; 87040; 87070; 87086; 87150; 87186; 93005; 94640; 94660; 94667; 94668; 94761; 94799; 96365; 96366; 96367; 96375; 96376; 97165; 99285; G0328; J0456; J2930; P9016

== ENCOUNTER 2022-12-09 08:50 | Outpatient (OUT) | payer MEDICAID, SELFPAY ==
--- NOTE | 2022-12-09 08:59 | XR_ITS ---
The [address] [address] Patient Name: KAM ESTES MRN: [id number] date: 1960 Sex: F Assigned Patient Location: RAD Current Patient Location: [facility] Accession/Order Number: [id number] Exam Date: 12/09/2022 08:59 Report Date: 12/09/2022 09:43 At the request of: ATUL MELTON Procedure: XR ankle RT min 3V PROCEDURE: XR ankle RT min 3V DATE: 12/09/2022 7:59 AM CDT This is dictated under combined report. Please see report of evaluating the foot and ankle from 12/09/2022. Electronically authenticated by: EMILIA DEVINE Date: 12/09/2022 09:43
--- NOTE | 2022-12-09 08:59 | XR_ITS ---
The [address] [address] Patient Name: KAM ESTES MRN: [id number] date: 1960 Sex: F Assigned Patient Location: [facility] Current Patient Location: [facility] Accession/Order Number: [id number] Exam Date: 12/09/2022 08:59 Report Date: 12/09/2022 09:43 At the request of: AUTL MELTON Procedure: XR foot RT min 3V PROCEDURE: XR foot RT min 3V XR ankle RT min 3V DATE: 12/09/2022 7:59 AM CDT COMPARISONS: MRI 4 09/17/2022 CLINICAL INDICATION: RIGHT FOOT PAIN FINDINGS: There is prominent deformity of the proximal aspect of the first proximal phalanx. This appears to represent comminuted fracture with intra-articular component. The intra-articular component is compressed a few millimeters. There is sclerosis at the fracture site suggesting this may be subacute fracture. The timing of the fracture is not known. Correlation with clinical history may be helpful in this regard. There is deformity of the distal aspect of the fourth metatarsal. This deformity is probably related to old fracture or possibly subacute fracture. As on MRI images, there is some sclerosis and heterogeneity of the distal tibia probably representing old bone infarct. The ankle mortise is intact. No ankle fracture or other acute osseous abnormalities of the ankle are identified. There is mild midfoot degenerative changes. XR/XR foot RT min 3V IMPRESSION: 1. Prominent deformity of the proximal aspect of the first proximal phalanx. This is consistent with comminuted slightly compressed intra-articular fracture. There is some developing degenerative change at the level of this fracture. The timing of this fracture is not known. It appears to be subacute and/or chronic. Correlation with clinical history may be helpful 2. Evidence of old or subacute fracture distal aspect fourth metatarsal 3. Scattered midfoot degenerative changes 4. 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 Ankle radiographs show no evidence of acute osseous abnormality.. Electronically authenticated by: EMILIA DEVINE Date: 12/09/2022 09:43
== END 2022-12-09 08:51 | disposition home or self-care (01) ==
LOC: RAD 08:50
PROVIDERS: PCP Family Medicine; Visit Provider Physician Assistant
DX: M19.071 Primary osteoarthritis, right ankle and foot (principal)
CPT/HCPCS: 73610; 73630

== ENCOUNTER 2022-12-15 01:29 | Outpatient (REF) | payer MEDICAID, SELFPAY ==
[2022-12-15 09:31] LABS: Basophils Percent Auto 0.2 % (0.2-2.0); Eosinophils Absolute Auto 0.2 10^3/uL (0.0-0.7); Eosinophils Percent Auto 3.2 % (0.9-7.0); Hematocrit 27.1 % (36.0-48.0); Hemoglobin 7.8 g/dL (12.0-16.0); Immature Granulocytes Abs Auto 0.09 10^3/uL (0.00-0.03); Immature Granulocytes Pct Auto 1.7 % (0.0-0.5); Lymphocytes Percent Auto 18.1 % (20.5-60.0); Mean Corpuscular HGB Conc 28.8 g/dL (29.9-35.2); Mean Corpuscular Hemoglobin 27.4 pg (26.7-34.0); Mean Corpuscular Volume 95.1 fL (81.0-99.0); Mean Platelet Volume 10.2 fL (9.5-13.5); Monocytes Absolute Auto 0.3 10^3/uL (0.3-0.8); Monocytes Percent Auto 4.9 % (1.7-12.0); Neutrophils Absolute Auto 3.8 10^3/uL (1.4-6.5); Neutrophils Percent Auto 71.9 % (43.0-75.0); Platelet Count 117 10^3/uL (150-450); White Blood Count 5.3 10^3/uL (4.0-11.0)
[2022-12-15 10:15] LABS: Bilirubin Urine NEGATIVE (NEGATIVE); Blood Urine SMALL (NEGATIVE); Clarity Urine CLEAR (CLEAR); Color Urine LT. YELLOW (YELLOW); Glucose Urine UA NEGATIVE (NEGATIVE); Ketones Urine NEGATIVE (NEGATIVE); Leukocyte Esterase Urine NEGATIVE (NEGATIVE); Nitrite Urine NEGATIVE (NEGATIVE); Protein Urine 100 mg/dL (NEG/TRACE); Urobilinogen Urine 0.2 EU/dL (0.2-1.0)
[2022-12-15 10:15] LABS: Alanine Aminotransferase 26 U/L (14-59); Albumin Globulin Ratio 0.9; Albumin Level 2.3 g/dL (3.4-5.0); Alkaline Phosphatase 96 U/L (46-116); Anion Gap 6.3; Aspartate Amino Transferase 18 U/L (15-37); BUN Creatinine Ratio 43.8; Bilirubin Total 0.1 mg/dL (0.2-1.0); Calcium 8.1 mg/dL (8.5-10.1); Carbon Dioxide 34.7 mmol/L (21.0-32.0); Chloride 107 mmol/L (98-107); Estimated GFR (African America 47 (>=60); Estimated GFR (Non-African Ame 39 (>=60); Free T3 1.11 pg/mL (2.18-3.98); Globulin 2.6 g/dL; Glucose 176 mg/dL (74-106); Sodium 143 mmol/L (136-145); Thyroid Stimulating Hormone 2.899 uIU/mL (0.358-3.740); Total Protein 4.9 g/dL (6.4-8.2)
[2022-12-15 10:16] LABS: Urine Microscopic Indicated YES
[2022-12-15 10:19] LABS: Red Blood Count 2.85 10^6/uL (4.20-5.40)
[2022-12-15 10:27] LABS: Free T4 0.65 ng/dL (0.76-1.46)
[2022-12-15 12:28] LABS: WBC Urine 0-2 #/HPF (NONE SEEN)
[2022-12-15 12:29] LABS: Bacteria Urine NONE SEEN #/HPF (NONE SEEN); Cast Seen? NONE SEEN #/LPF (NONE SEEN); Crystals Seen? None Seen #/HPF (None Seen); Mucus Urine NONE SEEN (NONE SEEN); RBC Urine 0-2 #/HPF (0-2); Squamous Epithelial Cell Urine RARE #/LPF (NONE/RARE)
== END 2022-12-15 01:30 | disposition home or self-care (01) ==
LOC: LAB 01:29
PROVIDERS: PCP Family Medicine; Visit Provider Family Medicine
DX: R53.83 Other fatigue (principal)
CPT/HCPCS: 36415; 80053; 81003; 81015; 83880; 84436; 84439; 84443; 84481; 85025

== ENCOUNTER 2022-12-17 15:17 | Outpatient (RCR) | payer MEDICAID, SELFPAY ==
[2022-12-19 13:56] VITALS: BP 104/48; PULSE 94; RESP 22; TEMP 37.1; O2SAT 98
--- NOTE | 2022-12-19 14:04 | PC.NURSE ---
Unit of prbc initiated, vs obtained prior to start. pt sedated on vent, this rn at bedside.
[2022-12-19 14:17] VITALS: BP 149/57; PULSE 94; RESP 22; TEMP 37.1; O2SAT 97
[2022-12-19 15:03] VITALS: BP 154/60; PULSE 98; RESP 20; TEMP 36.8
[2022-12-19 15:17] VITALS: BP 155/65; PULSE 94; TEMP 36.8
== END 2022-12-17 15:18 | disposition home or self-care (01) ==
LOC: INF 15:17
PROVIDERS: PCP Family Medicine; Visit Provider Family Medicine
DX: D50.9 Iron deficiency anemia, unspecified (principal)
CPT/HCPCS: 36415; 86850; 86900; 86901; 86920

== ENCOUNTER 2022-12-18 14:32 | Inpatient (IN) | payer MEDICAID, SELFPAY ==
[2022-12-18] VITALS (82 sets, daily range): BP systolic 64–190; BP diastolic 40–165; PULSE 68–101; RESP 13–28; TEMP 36.2–36.6; O2SAT 70–100; BMI 46.1
--- NOTE | 2022-12-18 15:06 | ED.WEAKNESS1 ---
HPI - Weakness General Chief complaint: Weakness Stated complaint: abdominal Pain Time Seen by Provider: 12/18/22 15:06 Source: patient and caregiver Source comment: NURSE AT [facility] Mode of arrival: ambulance Limitations: no limitations History of Present Illness HPI Narrative: Patient sent from [facility] with the complaint of mental status changes. Stated the patient was. He week she was set up to have the pack red blood cell transfusion as an outpatient but they think that the anemia has worsened and she might need that today. The patient has been very somnolent and has not eaten anything today. pt has a history of chronic obstructive pulmonary disease and is to be on BiPAP at the [facility] but she is noncompliant with the BiPAP. She has not had any fever. She has not had any falls or trauma. The patient denies any chest pain. She denies any headache. She denies any abdominal pain. She has not been sick with any nausea, vomiting, or diarrhea.Patient was recently hospitalized with respiratory failure and improved on BiPAP. MD Complaint: Reports generalized weakness Related Data Home Medications Medication Instructions Recorded Confirmed acetaminophen 500 mg tablet 1,000 mg PO Q6H PRN fever 11/29/22 12/18/22 alendronate 70 mg tablet 70 mg PO QDAY 11/29/22 12/18/22 alprazolam 0.25 mg tablet 0.25 mg PO TID PRN anxiety 11/29/22 12/18/22 apixaban 5 mg tablet (Eliquis) 5 mg PO Q12H 11/29/22 12/18/22 atorvastatin 10 mg tablet 10 mg PO .qhs 11/29/22 12/18/22 budesonide-formoterol HFA 80 2 inh inhalation BID 11/29/22 12/18/22 mcg-4.5 mcg/actuation aerosol inhaler (Symbicort) bupropion HCl (smoking deter) 150 150 mg PO BID 11/29/22 12/18/22 mg tablet,12 hr sustained-release(smoking deterrent) calcium gluconate 650 mg tablet 650 mg PO BID 11/29/22 12/18/22 cetirizine 10 mg tablet (24Hour 10 mg PO DAILY PRN allergy symptoms 11/29/22 12/18/22 Allergy) diclofenac potassium 50 mg tablet 50 mg PO Q12H 11/29/22 12/18/22 ferrous sulfate 325 mg (65 mg 325 mg PO DAILY 11/29/22 12/18/22 iron) tablet (Feosol) gabapentin 800 mg tablet 800 mg PO TID 11/29/22 12/18/22 loperamide 2 mg capsule 2 mg PO Q6H PRN loose stool 11/29/22 12/18/22 metoprolol succinate 100 mg 150 mg PO QDAY 11/29/22 12/18/22 tablet,extended release 24 hr montelukast 10 mg tablet 10 mg PO DAILY 11/29/22 12/18/22 (Singulair) omeprazole 40 mg capsule,delayed 40 mg PO DAILY 11/29/22 12/18/22 release roflumilast 500 mcg tablet 500 mcg PO DAILY 11/29/22 12/18/22 (Daliresp) tiotropium bromide 2.5 2 inh inhalation Q24H 11/29/22 12/18/22 mcg/actuation mist for inhalation (Spiriva Respimat) Previous Rx's Medication Instructions Recorded aripiprazole 5 mg tablet 5 mg PO QAM #30 tabs 12/02/22 benzonatate 100 mg capsule 200 mg PO Q8H PRN Cough #90 caps 12/02/22 clonidine HCl 0.1 mg tablet 0.1 mg PO TID #90 tabs 12/02/22 doxepin 10 mg capsule 25 mg PO BID #60 caps 12/02/22 furosemide 20 mg tablet 40 mg PO QDAY #60 tabs 12/02/22 hyoscyamine sulfate 0.125 mg 0.125 mg sublingual QID PRN 12/02/22 sublingual tablet Cramping #120 tabs ipratropium 0.5 mg-albuterol 3 mg 3 ml inhalation Q2H PRN Shortness 12/02/22 (2.5 mg base)/3 mL nebulization Of Breath Or Wheezing #180 mL soln ipratropium 0.5 mg-albuterol 3 mg 3 ml inhalation Q6H #180 mL 12/02/22 (2.5 mg base)/3 mL nebulization soln nystatin 100,000 unit/gram topical 1 applic topical BID #60 grams 12/02/22 powder (Nystop) prednisone 10 mg tablet 50 mg PO DAILY #47 tabs 12/02/22 Allergies Allergy/AdvReac Type Severity Reaction Status Date / Time codeine AdvReac Intermediate Verified 11/29/22 15:53 coumadin AdvReac Intermediate Uncoded 11/29/22 15:53 Review of Systems ROS Status of ROS 10 or more systems reviewed and unremarkable except as noted in history and below [facility] Medical History (Updated 12/18/22 @ 19:43 by Babs Lancaster MD) Social History Smoking status: Former smoker Highest level of school completed/degree received: don't know Exam Narrative Exam Narrative: Nurses notes and vital signs reviewed and patient is not hypoxic. General: Intermittent somnolence, arousable to name,no apparent distress. Skin: Warm, dry, mild pallor noted. No Rash Head: Normocephalic, atraumatic. Neck: Supple, non-tender. Eye: Pupils are equal, round and EOMI. No scleral icterus. Ears, Nose, Mouth, and Throat: TM clear, no posterior oropharynx erythema or nasal mucosal hypertrophy, uvula is mid-line Oral mucosa is dry Cardiovascular: Regular Rate and Rhythm without murmur, gallop or rub. Respiratory: No accessory muscle use or respiratory distress. Lungs: diminished breath sounds bilaterally, occasional crackle Chest Wall: no tenderness Back: No midline thoracic or lumbar vertebral tenderness. No CVA tenderness Musculoskeletal: bilateral arm ecchymoses, normal ROM, no calf or popliteal tenderness, no lower extremity edema/swelling GI: obese, Abdomen is soft, non-distended. Normal bowel sounds. No masses appreciated. No tenderness to palpation. No rebound, guarding, or rigidity noted. Neurological: A&O x4. No cranial nerve dysfunction observed. No truncal ataxia. Moves all extremities. Sensation intact. Psychiatric: Cooperative, at times will take off bipap and is angry at staff Constitutional Vital Signs, click to edit/add: Last Vital Signs Temp 97.6 F 12/22/22 15:00 Pulse 116 H 12/22/22 15:00 Resp 36 H 12/22/22 15:00 BP 158/90 H 12/22/22 10:01 Pulse Ox 93 L 12/22/22 15:00 O2 Del Method Vapotherm 12/22/22 15:00 O2 Flow Rate 40 12/22/22 15:00 FiO2 25 12/22/22 15:00 Course Course Hospital Course: Hypertensive urgency on admission-progressed to significant hypotension which resulted in Shock requiring placed on Levophed.?Iron deficiency anemia?Hypothermia (less than 96.8), tachycardia, respiratory distress, acute hypoxia, uncontrolled hypertension with hypertensive urgency that progressed in icu to hypotension secondary to healthcare facility acquired pneumonia resulting in acute exacerbation of COPD and acute hypercapnic and acute hypoxic respiratory failure with resp acidosis.? Now with neutropenia, patient currently ventilated.? This is resulted in severe sepsis with septic shock with multisystem organ dysfunction(resp, cardiac, liver, heme) antibiotics were adjusted stable overnight, plan per pulmonology in regards to extubation Patient was managed on a ventilator for several days. She did improve to the point that she can be extubated yesterday. Overnight had increasing shortness of breath. [place] to be fluid overloaded was given diuretics in the morning. Repeat ABG showed a elevated PCO2 and pH of 7.1. Patient at this time BiPAP. With plan to follow-up on repeat ABGs. Patient became increasingly respiratory distress. Patient then suffered cardiac arrest. Discussion with that taken place before with the family and then at that time and it was elected to allow patient to . Cause of end-stage COPD Vital Signs Vital signs: Vital Signs Temperature 97.8 F 12/18/22 14:33 Pulse Rate 77 12/18/22 14:33 Respiratory Rate 28 H 12/18/22 14:33 Blood Pressure 64/40 L 12/18/22 14:33 Pulse Oximetry 95 12/18/22 14:33 Oxygen Delivery Method Nasal Cannula 12/18/22 14:33 Oxygen Delivery Flow Rate 2 12/18/22 14:33 Temperature 97.6 F 12/22/22 15:00 Pulse Rate 116 H 12/22/22 15:00 Respiratory Rate 36 H 12/22/22 15:00 Blood Pressure 158/90 H 12/22/22 10:01 Pulse Oximetry 93 L 12/22/22 15:00 Oxygen Delivery Method Vapotherm 12/22/22 15:00 Oxygen Delivery Flow Rate 40 12/22/22 15:00 Fraction of Inspired Oxygen 25 12/22/22 15:00 MDM - Weakness MDM Narrative Medical decision making narrative: The patient is very somnolent and her exam is consistent with CO2 narcosis. The patient was started on BiPAP as the last time she was hospitalized she improved on BiPAP. However when we walked into the room the patient has taken her BiPAP off and she is getting agggravated and is aggressive with the staff screaming that she will not put the mask on only she eats something 1st. She states she is feeling better and she is really hungry and wants to eat. I advised the patient we will need to obtain an ABG prior to giving her something to eat because if she needs to be intubated or to be on BiPAP she will probably aspirate. Patient Screaming she does not care if she just wants something to eat 1st and was trying to negotiate the BiPAP would only goo on after she gets something to eat. I advised the patient even if we got her something to eat right now it was going to take some time because we have to order it. So she put the BiPAP back on and we gave the patient 1 mg of Ativan. 2nd ABG was obtained which showed that the patient had no improvement. Her pH was still 7.1 and her PCO2 was 287. Patient was subsequently intubated. 2 units of PRBCs have been ordered. The patient was given an insulin, dextrose for hyperkalemia one allbuterol treatment, and Kayexalate has been ordered via NG tube or rectal after the intubation. Critical Care Time: 35 minutes, critical care time is separate from any procedures that are performed. The following was considered in the determination of critical care but not limited to the level medical decision-making, intensive cardiac and/or respiratory monitor, frequent vital sign monitoring, evaluation of laboratory studies, evaluation of a radiographic studies, oxygen monitoring and constant monitoring. Differential Diagnosis Differential diagnosis: Likely anemia, hypoglycemia and dehydration Medical Records Attestation: I reviewed the patient's medical records. Lab Data Attestation: I reviewed the patient's lab results. Labs: Lab Results 12/18/22 12/18/22 12/18/22 Range/Units 03:59 15:22 15:38 WBC 7.0 4.6 (4.0-11.0) 10^3/uL RBC 2.55 L 2.61 L (4.20-5.40) 10^6/uL Hgb 7.2 L 7.2 L (12.0-16.0) g/dL Hct 24.0 L 25.4 L (36.0-48.0) % MCV 94.1 97.3 (81.0-99.0) fL MCH 28.2 27.6 (26.7-34.0) pg MCHC 30.0 28.3 L (29.9-35.2) g/dL RDW 15.4 H 15.2 H (11.0-15.0) % Plt Count 99 L 78 L (150-450) 10^3/uL MPV 10.8 10.4 (9.5-13.5) fL Neut % (Auto) 65.4 79.4 H (43.0-75.0) % Lymph % (Auto) 22.6 12.8 L (20.5-60.0) % [place] % (Auto) 5.3 3.9 (1.7-12.0) % Eos % (Auto) 5.5 2.8 (0.9-7.0) % Baso % (Auto) 0.1 L 0.0 L (0.2-2.0) % Neut # (Auto) 4.6 3.7 (1.4-6.5) 10^3/uL Lymph # (Auto) 1.6 0.6 L (1.2-3.8) 10^3/uL [place] # (Auto) 0.4 0.2 L (0.3-0.8) 10^3/uL Eos # (Auto) 0.4 0.1 (0.0-0.7) 10^3/uL Baso # (Auto) 0.0 0.0 (0.0-0.1) 10^3/uL Abs Immat Gran (auto) 0.08 H 0.05 H (0.00-0.03) 10^3/uL Imm/Tot Granulo (auto) 1.1 H 1.1 H (0.0-0.5) % PT 10.1 (9.0-11.6) sec INR 0.95 Puncture Site Rr ABG pH 7.180 L* (7.350-7.450) ABG pCO2 87.2 H* (35.0-45.0) mmHg ABG pO2 169.0 H (80.0-100.0) mmHg ABG HCO3 32.5 H (22.0-26.0) mmol/L ABG O2 Saturation 99.9 % ABG Base Excess 4.2 H (-2.0-2.0) mmol/L Wang Test Positive (POSITIVE) VBG pH 7.380 (7.330-7.430) VBG pCO2 54.6 H (40.0-52.0) mmHg O2 Liters/Min 4 Vent Mode FiO2 % Tidal Volume BiPAP Sodium 143 (136-145) mmol/L Potassium 6.3 H* (3.5-5.1) mmol/L Chloride 109 H (98-107) mmol/L Carbon Dioxide 33.1 H (21.0-32.0) mmol/L Anion Gap 7.2 BUN 79.0 H* (7.0-18.0) mg/dL Creatinine 1.30 H (0.55-1.02) mg/dL Est GFR ( Amer) 50 L (>=60) Est GFR (Non-Af Amer) 41 L (>=60) BUN/Creatinine Ratio 60.8 Glucose 130 H (74-106) mg/dL Lactate 0.6 (0.4-2.0) mmol/L Calcium 7.9 L (8.5-10.1) mg/dL Magnesium 1.9 (1.8-2.4) mg/dL Total Bilirubin 0.1 L (0.2-1.0) mg/dL AST 211 H (15-37) U/L ALT 215 H (14-59) U/L Alkaline Phosphatase 133 H (46-116) U/L Troponin I High Sens 25.9 (4.0-51.3) pg/mL NT-Pro-B Natriuret Pep 4611.0 H* (<=900.0) pg/mL Total Protein 4.9 L (6.4-8.2) g/dL Albumin 2.2 L (3.4-5.0) g/dL Globulin 2.7 g/dL Albumin/Globulin Ratio 0.8 Urine Color (YELLOW) Urine Clarity (CLEAR) Urine pH (5.0-9.0) Ur Specific Alexander (1.005-1.025) Urine Protein (NEG/TRACE) mg/dL Urine Glucose (UA) (NEGATIVE) mg/dL Urine Ketones (NEGATIVE) mg/dL Urine Occult Blood (NEGATIVE) Urine Nitrite (NEGATIVE) Urine Bilirubin (NEGATIVE) Urine Urobilinogen (0.2-1.0) EU/dL Ur Leukocyte Esterase (NEGATIVE) Urine RBC (0-2) #/HPF Urine WBC (NONE SEEN) #/HPF Ur Squamous Epith Cells (NONE/RARE) #/LPF Urine Crystals (None Seen) #/HPF Urine Bacteria (NONE SEEN) #/HPF Urine Casts (NONE SEEN) #/LPF Urine Mucus (NONE SEEN) Urine Yeast (NONE SEEN) Ur Culture Indicated? Ethanol Quant <3 mg/dL 12/18/22 12/18/22 12/18/22 Range/Units 18:28 19:04 19:20 WBC (4.0-11.0) 10^3/uL RBC (4.20-5.40) 10^6/uL Hgb (12.0-16.0) g/dL Hct (36.0-48.0) % MCV (81.0-99.0) fL MCH (26.7-34.0) pg MCHC (29.9-35.2) g/dL RDW (11.0-15.0) % Plt Count (150-450) 10^3/uL MPV (9.5-13.5) fL Neut % (Auto) (43.0-75.0) % Lymph % (Auto) (20.5-60.0) % [place] % (Auto) (1.7-12.0) % Eos % (Auto) (0.9-7.0) % Baso % (Auto) (0.2-2.0) % Neut # (Auto) (1.4-6.5) 10^3/uL Lymph # (Auto) (1.2-3.8) 10^3/uL [place] # (Auto) (0.3-0.8) 10^3/uL Eos # (Auto) (0.0-0.7) 10^3/uL Baso # (Auto) (0.0-0.1) 10^3/uL Abs Immat Gran (auto) (0.00-0.03) 10^3/uL Imm/Tot Granulo (auto) (0.0-0.5) % PT (9.0-11.6) sec INR Puncture Site Rr ABG pH 7.169 L* (7.350-7.450) ABG pCO2 87.4 H* (35.0-45.0) mmHg ABG pO2 164.0 H (80.0-100.0) mmHg ABG HCO3 31.8 H (22.0-26.0) mmol/L ABG O2 Saturation 99.8 % ABG Base Excess 3.2 H (-2.0-2.0) mmol/L Wang Test Positive (POSITIVE) VBG pH (7.330-7.430) VBG pCO2 (40.0-52.0) mmHg O2 Liters/Min Vent Mode FiO2 50 % Tidal Volume BiPAP 15/5 Sodium (136-145) mmol/L Potassium 5.7 H (3.5-5.1) mmol/L Chloride (98-107) mmol/L Carbon Dioxide (21.0-32.0) mmol/L Anion Gap BUN (7.0-18.0) mg/dL Creatinine (0.55-1.02) mg/dL Est GFR ( Amer) (>=60) Est GFR (Non-Af Amer) (>=60) BUN/Creatinine Ratio Glucose (74-106) mg/dL Lactate (0.4-2.0) mmol/L Calcium (8.5-10.1) mg/dL Magnesium (1.8-2.4) mg/dL Total Bilirubin (0.2-1.0) mg/dL AST (15-37) U/L ALT (14-59) U/L Alkaline Phosphatase (46-116) U/L Troponin I High Sens (4.0-51.3) pg/mL NT-Pro-B Natriuret Pep (<=900.0) pg/mL Total Protein (6.4-8.2) g/dL Albumin (3.4-5.0) g/dL Globulin g/dL Albumin/Globulin Ratio Urine Color Lt. yellow (YELLOW) Urine Clarity Clear (CLEAR) Urine pH 5.5 (5.0-9.0) Ur Specific Alexander 1.025 (1.005-1.025) Urine Protein 30 A (NEG/TRACE) mg/dL Urine Glucose (UA) Negative (NEGATIVE) mg/dL Urine Ketones Negative (NEGATIVE) mg/dL Urine Occult Blood Negative (NEGATIVE) Urine Nitrite Negative (NEGATIVE) Urine Bilirubin Negative (NEGATIVE) Urine Urobilinogen 0.2 (0.2-1.0) EU/dL Ur Leukocyte Esterase Negative (NEGATIVE) Urine RBC 2-5 A (0-2) #/HPF Urine WBC 0-2 A (NONE SEEN) #/HPF Ur Squamous Epith Cells None seen (NONE/RARE) #/LPF Urine Crystals None seen (None Seen) #/HPF Urine Bacteria None seen (NONE SEEN) #/HPF Urine Casts None seen (NONE SEEN) #/LPF Urine Mucus None seen (NONE SEEN) Urine Yeast Seen A (NONE SEEN) Ur Culture Indicated? Yes Ethanol Quant mg/dL 12/18/22 Range/Units 20:38 WBC (4.0-11.0) 10^3/uL RBC (4.20-5.40) 10^6/uL Hgb (12.0-16.0) g/dL Hct (36.0-48.0) % MCV (81.0-99.0) fL MCH (26.7-34.0) pg MCHC (29.9-35.2) g/dL RDW (11.0-15.0) % Plt Count (150-450) 10^3/uL MPV (9.5-13.5) fL Neut % (Auto) (43.0-75.0) % Lymph % (Auto) (20.5-60.0) % [place] % (Auto) (1.7-12.0) % Eos % (Auto) (0.9-7.0) % Baso % (Auto) (0.2-2.0) % Neut # (Auto) (1.4-6.5) 10^3/uL Lymph # (Auto) (1.2-3.8) 10^3/uL [place] # (Auto) (0.3-0.8) 10^3/uL Eos # (Auto) (0.0-0.7) 10^3/uL Baso # (Auto) (0.0-0.1) 10^3/uL Abs Immat Gran (auto) (0.00-0.03) 10^3/uL Imm/Tot Granulo (auto) (0.0-0.5) % PT (9.0-11.6) sec INR Puncture Site R radial ABG pH 7.273 L* (7.350-7.450) ABG pCO2 69.2 H* (35.0-45.0) mmHg ABG pO2 108.0 H (80.0-100.0) mmHg ABG HCO3 32.0 H (22.0-26.0) mmol/L ABG O2 Saturation 99.1 % ABG Base Excess 5.1 H (-2.0-2.0) mmol/L Wang Test Positive (POSITIVE) VBG pH (7.330-7.430) VBG pCO2 (40.0-52.0) mmHg O2 Liters/Min Vent Mode Ac FiO2 35 % Tidal Volume 400 BiPAP Sodium (136-145) mmol/L Potassium (3.5-5.1) mmol/L Chloride (98-107) mmol/L Carbon Dioxide (21.0-32.0) mmol/L Anion Gap BUN (7.0-18.0) mg/dL Creatinine (0.55-1.02) mg/dL Est GFR ( Amer) (>=60) Est GFR (Non-Af Amer) (>=60) BUN/Creatinine Ratio Glucose (74-106) mg/dL Lactate (0.4-2.0) mmol/L Calcium (8.5-10.1) mg/dL Magnesium (1.8-2.4) mg/dL Total Bilirubin (0.2-1.0) mg/dL AST (15-37) U/L ALT (14-59) U/L Alkaline Phosphatase (46-116) U/L Troponin I High Sens (4.0-51.3) pg/mL NT-Pro-B Natriuret Pep (<=900.0) pg/mL Total Protein (6.4-8.2) g/dL Albumin (3.4-5.0) g/dL Globulin g/dL Albumin/Globulin Ratio Urine Color (YELLOW) Urine Clarity (CLEAR) Urine pH (5.0-9.0) Ur Specific Alexander (1.005-1.025) Urine Protein (NEG/TRACE) mg/dL Urine Glucose (UA) (NEGATIVE) mg/dL Urine Ketones (NEGATIVE) mg/dL Urine Occult Blood (NEGATIVE) Urine Nitrite (NEGATIVE) Urine Bilirubin (NEGATIVE) Urine Urobilinogen (0.2-1.0) EU/dL Ur Leukocyte Esterase (NEGATIVE) Urine RBC (0-2) #/HPF Urine WBC (NONE SEEN) #/HPF Ur Squamous Epith Cells (NONE/RARE) #/LPF Urine Crystals (None Seen) #/HPF Urine Bacteria (NONE SEEN) #/HPF Urine Casts (NONE SEEN) #/LPF Urine Mucus (NONE SEEN) Urine Yeast (NONE SEEN) Ur Culture Indicated? Ethanol Quant mg/dL ABG Data Attestation: I personally reviewed and interpreted this ABG as follows: Interpretation: Respiratory failure with hypercapnia ECG Data Attestation: I personally reviewed and interpreted this ECG as follows: Discharge Plan Discharge Chief Complaint: Weakness Clinical Impression: Acute respiratory failure with hypercapnia, Anemia, Acute hyperkalemia, Non-compliance Patient Disposition: Admitted As Inpatient Time of Disposition Decision: 19:00 Condition: Fair Discharge Date/Time: 12/18/22 20:54 Procedures ED Procedure Instructions Procedures Procedures: RSI Intubation Note: Indication :resp failure, bipap noncompliance. Emergent consent. Patient had IV established. Pre oxygenated to O2 tad793% with bag valve mask. Patient was given 4 mg of Versed, and 30 mg of Amidate IV. The glidoscope was used to visualize the cords. An 7.5 [place]an ET tube was passed into the trachea through the cords. Placed 21 cm at the lips. Placement was confirmed by good fogging of tube, The CO2 detector, bilateral and equal lungs sounds, and chest x-ray. ETT 2 cm above the jill. Only 1 attempt was needed, patient tolerated well. Patient Placed on Diprivan for sedation. Then settings given to respiratory. The patient was discussed with Dr. Sprague who advised the patient can be admitted to [place]. He will be available for vent management. The patient was discussed with Dr. montoya who has accepted the patient to the intensive care unit.
--- NOTE | 2022-12-18 15:20 | ECG_ITS ---
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
--- NOTE | 2022-12-18 15:20 | XR_ITS ---
The [address] [address] Patient Name: KAM ESTES MRN: [id number] date: 1960 Sex: F Assigned Patient Location: ER Current Patient Location: ER Accession/Order Number: [id number] Exam Date: 12/18/2022 16:12 Report Date: 12/18/2022 16:33 At the request of: MORENO JOSÉ Procedure: XR chest 1V EXAM: XR chest 1V HISTORY: weakness COMPARISON: Chest x-ray 12/01/2022 TECHNIQUE: Portable chest FINDINGS: Poor inspiratory effort. Again demonstrated is haziness of the left lower hemithorax and left hemidiaphragm. This may relate to a small pleural effusion. Again demonstrated is haziness within the right lower hemithorax. The heart does not appear enlarged. No pneumothorax or focal parenchymal consolidation or infiltrate. XR/XR chest 1V IMPRESSION: Limited study secondary to poor inspiratory effort. The above findings may all be artifactual in nature., However, small effusions cannot be excluded. Electronically authenticated by: RACHAEL LAW Date: 12/18/2022 16:33
[2022-12-18 15:42] LABS: ABG PCO2 87.2 mmHg (35.0-45.0); Base Excess ABG 4.2 mmol/L (-2.0-2.0); HCO3 ABG 32.5 mmol/L (22.0-26.0)
[2022-12-18 15:43] LABS: Allen Test POSITIVE (POSITIVE); Liters per Minute 4; O2 Mode NC; Oxygen Saturation ABG 99.9 %; Puncture Site RR
[2022-12-18 15:47] LABS: Eosinophils Absolute Auto 0.1 10^3/uL (0.0-0.7); Eosinophils Percent Auto 2.8 % (0.9-7.0); Hematocrit 25.4 % (36.0-48.0); Hemoglobin 7.2 g/dL (12.0-16.0); Immature Granulocytes Abs Auto 0.05 10^3/uL (0.00-0.03); Immature Granulocytes Pct Auto 1.1 % (0.0-0.5); Lymphocytes Absolute Auto 0.6 10^3/uL (1.2-3.8); Lymphocytes Percent Auto 12.8 % (20.5-60.0); Mean Corpuscular Hemoglobin 27.6 pg (26.7-34.0); Mean Corpuscular Volume 97.3 fL (81.0-99.0); Mean Platelet Volume 10.4 fL (9.5-13.5); Monocytes Absolute Auto 0.2 10^3/uL (0.3-0.8); Monocytes Percent Auto 3.9 % (1.7-12.0); Neutrophils Absolute Auto 3.7 10^3/uL (1.4-6.5); Neutrophils Percent Auto 79.4 % (43.0-75.0); Platelet Count 78 10^3/uL (150-450); Red Blood Count 2.61 10^6/uL (4.20-5.40); Red Cell Distribution Width 15.2 % (11.0-15.0); White Blood Count 4.6 10^3/uL (4.0-11.0)
[2022-12-18 16:10] LABS: Mean Corpuscular HGB Conc 28.3 g/dL (29.9-35.2)
[2022-12-18 16:11] LABS: INR 0.95; Prothrombin Time 10.1 sec (9.0-11.6)
[2022-12-18 16:12] LABS: Lactate/Lactic Acid 0.6 mmol/L (0.4-2.0)
[2022-12-18 16:15] LABS: Alanine Aminotransferase 215 U/L (14-59); Albumin Globulin Ratio 0.8; Albumin Level 2.2 g/dL (3.4-5.0); Alkaline Phosphatase 133 U/L (46-116); Anion Gap 7.2; Aspartate Amino Transferase 211 U/L (15-37); BUN Creatinine Ratio 60.8; Bilirubin Total 0.1 mg/dL (0.2-1.0); Calcium 7.9 mg/dL (8.5-10.1); Carbon Dioxide 33.1 mmol/L (21.0-32.0); Chloride 109 mmol/L (98-107); Estimated GFR (African America 50 (>=60); Estimated GFR (Non-African Ame 41 (>=60); Ethanol <3 mg/dL; Globulin 2.7 g/dL; Glucose 130 mg/dL (74-106); Magnesium 1.9 mg/dL (1.8-2.4); Sodium 143 mmol/L (136-145); Total Protein 4.9 g/dL (6.4-8.2); Troponin I High Sensitivity 25.9 pg/mL (4.0-51.3)
[2022-12-18 16:17] LABS: Potassium 6.3 mmol/L (3.5-5.1)
[2022-12-18] MEDS: 0.9 % SODIUM CHLORIDE 1,000 ML 100 ML IV (16:38)
[2022-12-18] MEDS: LORAZEPAM 2 MG/ML 1 ML VIAL 1 MG IV (16:38)
[2022-12-18] MEDS: ALBUTEROL SULFATE 2.5 MG/3 ML VIAL NEB IH (17:04)
[2022-12-18] MEDS: DEXTROSE 50 %-WATER 25 GM/50 ML SYRINGE IV (17:32)
[2022-12-18] MEDS: INSULIN REGULAR 300 UNITS/3 ML 10 UNIT SUBQ (17:32)
--- NOTE | 2022-12-18 18:37 | RESP.RT ---
decreased FiO2 to 40%
[2022-12-18 18:41] LABS: ABG PCO2 87.4 mmHg (35.0-45.0); Base Excess ABG 3.2 mmol/L (-2.0-2.0); HCO3 ABG 31.8 mmol/L (22.0-26.0); pH ABG 7.169 (7.350-7.450)
[2022-12-18 18:42] LABS: Allen Test POSITIVE (POSITIVE); BIPAP Pressure 15/5; Fractionated Inspired Oxygen 50 %; O2 Mode BIPAP; Oxygen Saturation ABG 99.8 %; Puncture Site RR
[2022-12-18 18:43] LABS: Rate 16
--- NOTE | 2022-12-18 18:45 | XR_ITS ---
The [address] [address] Patient Name: KAM ESTES MRN: [id number] date: 1960 Sex: F Assigned Patient Location: ER Current Patient Location: ER Accession/Order Number: [id number] Exam Date: 12/18/2022 19:00 Report Date: 12/18/2022 19:19 At the request of: MORENO JOSÉ Procedure: XR chest 1V CXR - 1 VIEW HISTORY: Shortness of breath COMPARISON: 12/01/2022 chest x-ray TECHNIQUE: Single frontal view of the chest is submitted for review. FINDINGS: Endotracheal tube in adequate position. There is blunting of the left costophrenic angle. Lungs are adequately expanded. The cardiac silhouette measures enlarged. Pulmonary vascularity is increased. Osseous structures are within normal limits for age. XR/XR chest 1V IMPRESSION: Cardiomegaly with prominence of pulmonary vascularity small left-sided effusion. Please correlate for congestive heart failure. Electronically authenticated by: DANNI SEPULVEDA Date: 12/18/2022 19:19
[2022-12-18] MEDS: MIDAZOLAM HCL 2 MG/2 ML VIAL 4 MG IV (18:54)
[2022-12-18] MEDS: ETOMIDATE 20 MG/10 ML VIAL 30 MG IV (18:55)
[2022-12-18 19:22] LABS: Potassium 5.7 mmol/L (3.5-5.1)
[2022-12-18 19:27] LABS: Bilirubin Urine NEGATIVE (NEGATIVE); Blood Urine NEGATIVE (NEGATIVE); Clarity Urine CLEAR (CLEAR); Color Urine LT. YELLOW (YELLOW); Glucose Urine UA NEGATIVE (NEGATIVE); Ketones Urine NEGATIVE (NEGATIVE); Leukocyte Esterase Urine NEGATIVE (NEGATIVE); Nitrite Urine NEGATIVE (NEGATIVE); Protein Urine 30 mg/dL (NEG/TRACE); Specific Gravity Urine 1.025 (1.005-1.025); Urobilinogen Urine 0.2 EU/dL (0.2-1.0); pH Urine 5.5 (5.0-9.0)
[2022-12-18] MEDS: PROPOFOL 1,000 MG/100 ML VIAL 3.538 MG IV (19:28)
[2022-12-18 19:49] LABS: Urine Microscopic Indicated YES
--- NOTE | 2022-12-18 19:52 | PC.NURSE ---
1853- 4mg versed administered 1854- 30mg of etomidate administered -Dr. Lancaster examining airway 1855- ET tube in placed, 7.5 ET tube, measuring 22 at the lip, good color alexandrunge 1856- bilateral breath sounds auscultated by inocencia almaguer n - bagged by RT at this tiem 1857- RT placed ET tube ties; vs- o2-98%, HR-70, BP- 119/65) 1899- pt placed on vent (FIO2- 35%, TIDAL VOLUME-400, PEEP-5, A/C) 1900- chest x-ray done at bedside 1903- 20g iv started by bharat almaguer at left forearm 1912- 16f hbatti inserted, urine sample collected, 600ml emptied from pt bladder 1927- diprivan drip started 5mcg/kg/min, 3.528 ml/hr 1935- while attempting ng insertion pt attempted to grab at tube, propofol drip increased to 10mcg/kg/min 4- 16f ng inserted into left nare, 60 at the nare. placed on low intermittent suction, no return. pt placed in soft wrist restraints. order placed by dr. thakur
[2022-12-18 19:55] LABS: WBC Urine 0-2 #/HPF (NONE SEEN)
[2022-12-18 19:56] LABS: Bacteria Urine NONE SEEN #/HPF (NONE SEEN); Crystals Seen? None Seen #/HPF (None Seen); Mucus Urine NONE SEEN (NONE SEEN); Squamous Epithelial Cell Urine NONE SEEN #/LPF (NONE/RARE)
[2022-12-18 19:57] LABS: Cast Seen? NONE SEEN #/LPF (NONE SEEN); Urine Culture Indicated YES
[2022-12-18 20:47] LABS: ABG PCO2 69.2 mmHg (35.0-45.0); pH ABG 7.273 (7.350-7.450)
[2022-12-18 20:48] LABS: Allen Test POSITIVE (POSITIVE); Base Excess ABG 5.1 mmol/L (-2.0-2.0); Fractionated Inspired Oxygen 35 %; O2 Mode VENT; Oxygen Saturation ABG 99.1 %; Puncture Site R RADIAL; Rate 20; Tidal Volume 400; Vent Mode AC
--- NOTE | 2022-12-18 22:30 | XR_ITS ---
The [address] [address] Patient Name: KAM ESTES MRN: [id number] date: 1960 Sex: F Assigned Patient Location: ICU Current Patient Location: ICU Accession/Order Number: [id number] Exam Date: 12/18/2022 23:59 Report Date: 12/19/2022 08:20 At the request of: KELLEY V SISTER Procedure: XR chest 1V EXAM: XR chest 1V HISTORY: intubated COMPARISON: 12/18/2022. TECHNIQUE: Single frontal view of the chest. FINDINGS/ XR/XR chest 1V IMPRESSION: Evaluation is limited by decreased penetration Tubes/lines/devices: Enteric tube, subdiaphragmatic. Endotracheal tube approximately 3.9 cm from the jill. Lungs: Adequate inflation. Retrocardiac opacity, unchanged. Mild increased interstitial markings, likely pulmonary edema, slightly improved. Pleura: No pneumothorax. Stable small bilateral layering pleural effusions. Heart and mediastinum: Stable cardiomegaly. Aortic atherosclerosis. Bones/soft tissues: No acute osseous findings. Unremarkable soft tissues. Abdomen: Unremarkable. Electronically authenticated by: JARED HAMMOND Date: 12/19/2022 08:20
--- NOTE | 2022-12-18 23:10 | W.PM.TELEPN ---
Progress Note: Subjective Subjective Interval history: The patient did to emergency room with shortness of breath. Patient has a history of COPD. Apparently patient found to be in CO2 retention. Initial attempts to improve patient's condition with the breathing treatments and BiPAP failed. Blood gas revealed severe respiratory acidosis. Patient got intubated. Patient is currently in the ICU. Intubated. Sedated with propofol. No other information available at present. Exam Narrative Exam Narrative: Physical Exam: Intubated. Sedated Head - atraumatic, eyes - pupils equal, round, reactive to light, extra ocular movement intact, MMM Neck - supple, thyroid not enlarged, LN not palpated Lungs -coarse breath sounds bilaterally, wheezing CVS - heart sounds S1, S2, diminished, no additional murmurs gallop, regular rate and rhythm Gastrointestinal?abdomen is soft, non-tender, non-distended, no organomegaly, positive bowel sounds Extremities no clubbing, cyanosis or edema Neurological?cranial nerve II?XII grossly intact, no meningeal signs, no cerebellar signs, no sensory deficit Musculoskeletal - DJD related changes in multiple joints, no effusions, ROM preserved Dermatological - the skin dry, warm, no rashes Constitutional Vital Signs, click to edit/add: Last Vital Signs Temp 97.2 F L 12/18/22 21:22 Pulse 77 12/18/22 22:16 Resp 20 12/18/22 22:16 BP 103/65 12/18/22 21:34 Pulse Ox 100 12/18/22 22:25 O2 Del Method Mechanical Ventilator 12/18/22 22:25 O2 Flow Rate 3.5 12/18/22 15:27 FiO2 35 12/18/22 22:25 Progress Note: Objective Labs Labs: Short CBC 12/18/22 Range/Units 15:22 WBC 4.6 (4.0-11.0) 10^3/uL Hgb 7.2 L (12.0-16.0) g/dL Hct 25.4 L (36.0-48.0) % Plt Count 78 L (150-450) 10^3/uL BMP 12/18/22 12/18/22 15:22 19:04 Sodium 143 Potassium 6.3 H* 5.7 H Chloride 109 H Carbon Dioxide 33.1 H BUN 79.0 H* Creatinine 1.30 H Glucose 130 H Calcium 7.9 L Liver Function 12/18/22 Range/Units 15:22 Total Bilirubin 0.1 L (0.2-1.0) mg/dL AST 211 H (15-37) U/L ALT 215 H (14-59) U/L Alkaline Phosphatase 133 H (46-116) U/L Albumin 2.2 L (3.4-5.0) g/dL Urine 12/18/22 Range/Units 19:20 Urine Color Lt. yellow (YELLOW) Urine Clarity Clear (CLEAR) Urine pH 5.5 (5.0-9.0) Ur Specific [place] 1.025 (1.005-1.025) Urine Protein 30 A (NEG/TRACE) mg/dL Urine Glucose (UA) Negative (NEGATIVE) mg/dL Progress Note: A&P Assessment and Plan (1) Acute respiratory failure with hypercapnia: Assessment and Plan: Continue mechanical ventilation. Recheck blood gas for efficiency of the treatment. Follow-up with pulmonary critical care for further recommendations (2) Anemia: Assessment and Plan: No acute blood loss. No need for blood transfusion at present (3) Acute hyperkalemia: Assessment and Plan: Patient received correctional treatment in the emergency room. Repeated blood work ordered. I am going to adjust according to results (4) Non-compliance: Assessment and Plan: Patient will be consulted (5) Hypercholesterolemia: Assessment and Plan: Restart home dose of statin when medically appropriate (6) Anxiety: Assessment and Plan: Continue with SSRIs (7) COPD with acute exacerbation: Assessment and Plan: I started patient on empiric antibiotics As started patient on inhaled and systemic steroids and inhaled bronchodilators Plan As the provider for the telehealth service, I attest that I introduced myself to the patient, provided my credentials, disclosed by location and determined that based on a review of the patient's chart and discussion with members of the patient's treatment team, telemedicine via real-time, 2 way, and interactive audio and video platform is an appropriate and effective means of providing the service. ?The patient and I mutually agree this visit is appropriate for telemedicine. ?The virtual encounter was taken place from? [place], [place]. ?The encounter took approximately 35 minutes. ?The nurse was present during the entire time and I was able to move the stethoscope in appropriate directions. ?The patient was evaluated at the Hospital ? Portions of this note may be dictated using Gabstr voice recognition software. Variances in spelling and vocabulary are possible and unintentional. Not all errors may be caught and/or corrected. Please notify the author if any discrepancies are noted and/or if the meaning of any statement is unclear.? ? Patient verbally consented for treatment via video visit with patient currently located at [facility] and provider located in [place]. Telemedicine Attestation Telemedicine Attestation I conducted this encounter from [place]] via secure live, [id number] video conference with the patient, located at [facility] with [acute hypercapnic respiratory failure]. Prior to the interview, the risks and benefits of telemedicine were discussed with the patient and verbal consent was obtained.
[2022-12-18] MEDS: 0.9 % SODIUM CHLORIDE 1,000 ML 75 ML IV (23:30)
[2022-12-18] MEDS: NOREPINEPHRINE BITARTRATE 4 MG in DEXTROSE 5 % IN WATER 250 ML 30 MG IV (23:45)
--- NOTE | 2022-12-18 23:59 | PC.NURSE ---
Pt noted to be hypotensive on the monitor. Manual reading of BP was 54/48. Dr. Quesada notified at 4814. Orders received to start Levophed and titrate to keep MAP above 65. This RN overrode for Levophed in the Pyxis and mixed with 250 ml bag of D5W with RNx2 as witness. Ornamental Iron Erector, Crystal, at bedside as well. Levophed administered and hung at 2352. Gtt started at 8 mcg/min. Latest BP reading 90/59. With MAP 65. Will keep gtt at this rate and continue to monitor.
[2022-12-19] VITALS (183 sets, daily range): BP systolic 62–194; BP diastolic 36–75; PULSE 73–103; RESP 20–26; TEMP 37.1–37.7; O2SAT 93–100; BMI 46.1
[2022-12-19] MEDS: METHYLPREDNISOLONE SOD SUCC PF 40 MG/ML VIAL IVP ×2 (04:04→07:37)
[2022-12-19] MEDS: PROPOFOL 1,000 MG/100 ML VIAL 10.614 MG IV (04:18)
--- NOTE | 2022-12-19 04:20 | PC.NURSE ---
Propofol order updated to reflect a continuous drip. Previous order remains active ; however, it was a one time/stat order. Next Propofol hung at 0418. Unable to scan due to unverified status by pharmacy. Plan to update MAR as soon as medication is verified.
[2022-12-19 04:21] LABS: Basophils Percent Auto 0.1 % (0.2-2.0); Eosinophils Absolute Auto 0.4 10^3/uL (0.0-0.7); Eosinophils Percent Auto 5.5 % (0.9-7.0); Hemoglobin 7.2 g/dL (12.0-16.0); Immature Granulocytes Abs Auto 0.08 10^3/uL (0.00-0.03); Immature Granulocytes Pct Auto 1.1 % (0.0-0.5); Lymphocytes Absolute Auto 1.6 10^3/uL (1.2-3.8); Lymphocytes Percent Auto 22.6 % (20.5-60.0); Mean Corpuscular Hemoglobin 28.2 pg (26.7-34.0); Mean Corpuscular Volume 94.1 fL (81.0-99.0); Mean Platelet Volume 10.8 fL (9.5-13.5); Monocytes Absolute Auto 0.4 10^3/uL (0.3-0.8); Monocytes Percent Auto 5.3 % (1.7-12.0); Neutrophils Absolute Auto 4.6 10^3/uL (1.4-6.5); Neutrophils Percent Auto 65.4 % (43.0-75.0); Platelet Count 99 10^3/uL (150-450); Red Blood Count 2.55 10^6/uL (4.20-5.40); Red Cell Distribution Width 15.4 % (11.0-15.0)
[2022-12-19 04:24] LABS: PCO2 VBG 54.6 mmHg (40.0-52.0)
[2022-12-19] MEDS: IPRATROPIUM/ALBUTEROL SULFATE 3 ML AMPUL.NEB IH ×4 (04:36→23:51)
--- NOTE | 2022-12-19 06:06 | PC.NURSE ---
Attempted to regain IV access after losing right AC site. Vein light utilized and RN attempt x3. Plan to obtain order for PICC today.
[2022-12-19] MEDS: PROPOFOL 1,000 MG/100 ML VIAL 28.304 MG IV (08:22)
[2022-12-19 08:44] LABS: Basophils Percent Auto 0.1 % (0.2-2.0); Eosinophils Absolute Auto 0.1 10^3/uL (0.0-0.7); Eosinophils Percent Auto 1.8 % (0.9-7.0); Hematocrit 24.6 % (36.0-48.0); Hemoglobin 7.1 g/dL (12.0-16.0); Immature Granulocytes Abs Auto 0.13 10^3/uL (0.00-0.03); Immature Granulocytes Pct Auto 1.8 % (0.0-0.5); Lymphocytes Absolute Auto 0.9 10^3/uL (1.2-3.8); Lymphocytes Percent Auto 13.2 % (20.5-60.0); Mean Corpuscular Hemoglobin 27.8 pg (26.7-34.0); Mean Corpuscular Volume 96.5 fL (81.0-99.0); Mean Platelet Volume 10.6 fL (9.5-13.5); Monocytes Absolute Auto 0.3 10^3/uL (0.3-0.8); Monocytes Percent Auto 3.7 % (1.7-12.0); Neutrophils Absolute Auto 5.6 10^3/uL (1.4-6.5); Neutrophils Percent Auto 79.4 % (43.0-75.0); Platelet Count 86 10^3/uL (150-450); Red Blood Count 2.55 10^6/uL (4.20-5.40); Red Cell Distribution Width 15.3 % (11.0-15.0); White Blood Count 7.1 10^3/uL (4.0-11.0)
[2022-12-19] MEDS: PANTOPRAZOLE SODIUM 40 MG VIAL IV (08:46)
[2022-12-19 08:59] LABS: INR 0.94; Partial Thromboplastin Time 27.5 sec (22.3-36.2)
[2022-12-19 09:02] LABS: Alanine Aminotransferase 213 U/L (14-59); Albumin Globulin Ratio 0.7; Albumin Level 1.9 g/dL (3.4-5.0); Alkaline Phosphatase 134 U/L (46-116); Anion Gap 6.8; Aspartate Amino Transferase 126 U/L (15-37); BUN Creatinine Ratio 65.1; Bilirubin Total 0.2 mg/dL (0.2-1.0); Calcium 8.3 mg/dL (8.5-10.1); Carbon Dioxide 32.2 mmol/L (21.0-32.0); Chloride 109 mmol/L (98-107); Estimated GFR (African America >60 (>=60); Estimated GFR (Non-African Ame 51 (>=60); Globulin 2.9 g/dL; Glucose 72 mg/dL (74-106); Magnesium 1.8 mg/dL (1.8-2.4); Sodium 142 mmol/L (136-145); Total Protein 4.8 g/dL (6.4-8.2)
[2022-12-19 09:07] LABS: Mean Corpuscular HGB Conc 28.9 g/dL (29.9-35.2)
[2022-12-19] MEDS: FERROUS SULFATE 325 MG TABLET PO (09:17)
[2022-12-19] MEDS: MONTELUKAST SODIUM 10 MG TABLET PO (09:17)
[2022-12-19] MEDS: CALCIUM CARBONATE 600 MG TABLET PO ×2 (09:18→21:45)
[2022-12-19] MEDS: BUPROPION HCL 150 MG SR TABLET 12H PO ×2 (09:18→21:47)
[2022-12-19] MEDS: ROFLUMILAST 500 MCG TABLET PO (09:19)
[2022-12-19] MEDS: ARIPIPRAZOLE 5 MG TABLET PO (09:19)
[2022-12-19 09:49] LABS: pH ABG 7.301 (7.350-7.450)
[2022-12-19 09:51] LABS: ABG PCO2 63.7 mmHg (35.0-45.0); Base Excess ABG 5 mmol/L (-2.0-2.0); HCO3 ABG 31.4 mmol/L (22.0-26.0)
[2022-12-19 09:52] LABS: Allen Test POSITIVE (POSITIVE); Oxygen Saturation ABG 96.9 %
[2022-12-19] MEDS: DOXEPIN HCL 25 MG CAPSULE PO (09:52)
[2022-12-19 09:53] LABS: Fractionated Inspired Oxygen 35 %; Puncture Site RR; Rate 20; Vent Mode A/C
[2022-12-19] MEDS: BUDESONIDE 0.5 MG/2 ML AMPULE NEB IH ×2 (10:17→23:51)
--- NOTE | 2022-12-19 10:43 | P.HP_ITS ---
H&P: HPI History of Present Illness Chief complaint: abdominal Pain hypercapnea noncompiance Narrative: Patient well-known to me from long-term care and frequent hospitalizations presented to the emergency room with altered mental status. Found to have acute hypoxic respiratory failure with acute hypercapnia. Secondary to healthcare facility acquired pneumonia. Patient also had hypertensive urgency on admission. Placed on BiPAP in ER but unable unable to improve and so patient was intubated and transferred to the intensive care unit. [facility] Medical History (Updated 12/18/22 @ 19:43 by Babs Lancaster MD) Social History Smoking status: Former smoker Highest level of school completed/degree received: don't know Meds Home Medications and Allergies Home Medications Medication Instructions Recorded Confirmed Type acetaminophen 500 mg tablet 1,000 mg PO Q6H PRN fever 11/29/22 12/18/22 History alendronate 70 mg tablet 70 mg PO QDAY 11/29/22 12/18/22 History alprazolam 0.25 mg tablet 0.25 mg PO TID PRN anxiety 11/29/22 12/18/22 History apixaban 5 mg tablet (Eliquis) 5 mg PO Q12H 11/29/22 12/18/22 History atorvastatin 10 mg tablet 10 mg PO .qhs 11/29/22 12/18/22 History budesonide-formoterol HFA 80 2 inh inhalation BID 11/29/22 12/18/22 History mcg-4.5 mcg/actuation aerosol inhaler (Symbicort) bupropion HCl (smoking deter) 150 150 mg PO BID 11/29/22 12/18/22 History mg tablet,12 hr sustained-release(smoking deterrent) calcium gluconate 650 mg tablet 650 mg PO BID 11/29/22 12/18/22 History cetirizine 10 mg tablet (24Hour 10 mg PO DAILY PRN allergy symptoms 11/29/22 12/18/22 History Allergy) diclofenac potassium 50 mg tablet 50 mg PO Q12H 11/29/22 12/18/22 History ferrous sulfate 325 mg (65 mg 325 mg PO DAILY 11/29/22 12/18/22 History iron) tablet (Feosol) gabapentin 800 mg tablet 800 mg PO TID 11/29/22 12/18/22 History loperamide 2 mg capsule 2 mg PO Q6H PRN loose stool 11/29/22 12/18/22 History metoprolol succinate 100 mg 150 mg PO QDAY 11/29/22 12/18/22 History tablet,extended release 24 hr montelukast 10 mg tablet 10 mg PO DAILY 11/29/22 12/18/22 History (Singulair) omeprazole 40 mg capsule,delayed 40 mg PO DAILY 11/29/22 12/18/22 History release roflumilast 500 mcg tablet 500 mcg PO DAILY 11/29/22 12/18/22 History (Daliresp) tiotropium bromide 2.5 2 inh inhalation Q24H 11/29/22 12/18/22 History mcg/actuation mist for inhalation (Spiriva Respimat) aripiprazole 5 mg tablet 5 mg PO QAM #30 tabs 12/02/22 12/18/22 Rx benzonatate 100 mg capsule 200 mg PO Q8H PRN Cough #90 caps 12/02/22 12/18/22 Rx clonidine HCl 0.1 mg tablet 0.1 mg PO TID #90 tabs 12/02/22 12/18/22 Rx doxepin 10 mg capsule 25 mg PO BID #60 caps 12/02/22 12/18/22 Rx furosemide 20 mg tablet 40 mg PO QDAY #60 tabs 12/02/22 12/18/22 Rx hyoscyamine sulfate 0.125 mg 0.125 mg sublingual QID PRN 12/02/22 12/18/22 Rx sublingual tablet Cramping #120 tabs ipratropium 0.5 mg-albuterol 3 mg 3 ml inhalation Q2H PRN Shortness 12/02/22 12/18/22 Rx (2.5 mg base)/3 mL nebulization Of Breath Or Wheezing #180 mL soln ipratropium 0.5 mg-albuterol 3 mg 3 ml inhalation Q6H #180 mL 12/02/22 12/18/22 Rx (2.5 mg base)/3 mL nebulization soln nystatin 100,000 unit/gram topical 1 applic topical BID #60 grams 12/02/22 12/18/22 Rx powder (Nystop) prednisone 10 mg tablet 50 mg PO DAILY #47 tabs 12/02/22 12/18/22 Rx Allergies Allergy/AdvReac Type Severity Reaction Status Date / Time codeine AdvReac Intermediate Verified 11/29/22 15:53 coumadin AdvReac Intermediate Uncoded 11/29/22 15:53 Exam Constitutional Vital Signs, click to edit/add: Last Vital Signs Temp 99.8 F 12/19/22 07:41 Pulse 90 12/19/22 10:23 Resp 22 12/19/22 10:23 BP 115/49 12/19/22 10:00 Pulse Ox 98 12/19/22 10:23 O2 Del Method Mechanical Ventilator 12/19/22 10:23 O2 Flow Rate 3.5 12/18/22 15:27 FiO2 35 12/19/22 10:23 Documenting provider has reviewed patient's vital signs: yes Common normals: no apparent distress (Sedated on ventilator) Chest Common normals: inspection of chest normal Respiratory Effort & inspection: no respiratory distress (intubated) Auscultation: rhonchi and wheezes Cardio Common normals: regular rate, regular rhythm and no murmurs GI Common normals: Normal to inspection, nondistended, normoactive bowel sounds present (Unable to assess tenderness secondary to sedation) Extremity Common normals: normal to inspection (Minimal edema, this is much improved from her previous. Or her baseline.) Results Labs Labs: Short CBC 12/18/22 12/18/22 12/19/22 Range/Units 03:59 15:22 08:32 WBC 7.0 4.6 7.1 (4.0-11.0) 10^3/uL Hgb 7.2 L 7.2 L 7.1 L (12.0-16.0) g/dL Hct 24.0 L 25.4 L 24.6 L (36.0-48.0) % Plt Count 99 L 78 L 86 L (150-450) 10^3/uL BMP 12/18/22 12/18/22 12/19/22 15:22 19:04 08:32 Sodium 143 142 Potassium 6.3 H* 5.7 H 6.0 H Chloride 109 H 109 H Carbon Dioxide 33.1 H 32.2 H BUN 79.0 H* 71.0 H Creatinine 1.30 H 1.09 H Glucose 130 H 72 L Calcium 7.9 L 8.3 L Liver Function 12/18/22 12/19/22 Range/Units 15:22 08:32 Total Bilirubin 0.1 L 0.2 (0.2-1.0) mg/dL AST 211 H 126 H (15-37) U/L ALT 215 H 213 H (14-59) U/L Alkaline Phosphatase 133 H 134 H (46-116) U/L Albumin 2.2 L 1.9 L (3.4-5.0) g/dL Urine 12/18/22 Range/Units 19:20 Urine Color Lt. yellow (YELLOW) Urine Clarity Clear (CLEAR) Urine pH 5.5 (5.0-9.0) Ur Specific [place] 1.025 (1.005-1.025) Urine Protein 30 A (NEG/TRACE) mg/dL Urine Glucose (UA) Negative (NEGATIVE) mg/dL ABG ABG results: 12/18/22 12/18/22 12/18/22 03:59 15:38 18:28 ABG pH 7.180 L* 7.169 L* ABG pCO2 87.2 H* 87.4 H* ABG pO2 169.0 H 164.0 H ABG HCO3 32.5 H 31.8 H ABG O2 Saturation 99.9 99.8 ABG Base Excess 4.2 H 3.2 H VBG pH 7.380 VBG pCO2 54.6 H 12/18/22 12/19/22 20:38 09:39 ABG pH 7.273 L* 7.301 L ABG pCO2 69.2 H* 63.7 H* ABG pO2 108.0 H 82.0 ABG HCO3 32.0 H 31.4 H ABG O2 Saturation 99.1 96.9 ABG Base Excess 5.1 H 5 H VBG pH VBG pCO2 Assessment and Plan Assessment and Plan (1) Acute respiratory failure with hypercapnia: (2) Anemia: (3) Acute hyperkalemia: (4) Non-compliance: (5) Hypercholesterolemia: (6) Anxiety: (7) COPD with acute exacerbation: Plan Hypothermia (less than 96.8), tachycardia, respiratory distress, acute hypoxia, uncontrolled hypertension with hypertensive urgency that progressed in icu to hypotension secondary to healthcare facility acquired pneumonia resulting in acute exacerbation of COPD and acute hypercapnic and acute hypoxic respiratory failure with resp acidosis. Patient currently ventilated. This is resulted in severe sepsis with septic shock with multisystem organ dysfunction(resp, cardiac, liver, heme) -will adjust IV antibiotics for healthcare facility acquired pneumonia. BNP is elevated but this is actually close to her baseline. Her edema is minimal especially for her. Suspected x-ray findings are more consistent with pneumonia than congestive heart failure. Pulmonology to manage ventilator , daily labs, x-rays, ABGs Hypertensive urgency on admission-progressed to significant hypotension which resulted inShock requiring placed on Levophed. We will try to wean Levophed this morning. Blood pressure is improved. Thrombocytopenia-as a result of theMultisystem organ dysfunction from the above- monitor daily Hyperkalemia on admission-Repeat labs this morning are up a little bit.Place patient on Kayexalate. Serial labs.- Iron deficiency anemia as well as anemia of acute blood loss , type cross and transfuse 1 unit today. May need further units -monitor daily Elevated LFTs as a function of the sepsis from above-Consider ultrasound of abdomen tomorrow based on testing. Elevated BNP-This is likely combination of factors but this is actually pretty close to her baseline.Consider repeat echo Nutritional status-patient morbidly obese. Depending on how long on ventilator may start tube feeds tomorrow. Erythema bilateral lower extremities ultrasound of lower extremities, she is already been on Eliquis. Which were holding today secondary to the possible bleeding.Ultrasound tomorrow Patient admitted to the ICU as an inpatient-on a ventilator, likely in the hospital 3 to 4 days minimum.Maintain inpatient status
[2022-12-19 11:05] LABS: Glucometer 101 mg/dL (74-106)
[2022-12-19] MEDS: PROPOFOL 1,000 MG/100 ML VIAL 28.3 MG IV (11:52)
[2022-12-19] MEDS: PIPERACILLIN SODIUM/TAZOBACTAM 3.375 GM in 0.9 % SODIUM CHLORIDE 50 ML IV ×2 (12:20→19:55)
[2022-12-19] MEDS: METHYLPREDNISOLONE SOD SUCC PF 40 MG/ML VIAL 60 MG IVP ×2 (12:43→19:55)
[2022-12-19] MEDS: SODIUM POLYSTYRENE SULFON 15 GM/60 ML ORAL.SUSP KAYEXALATE 45 GM PO ×2 (12:48→17:52)
[2022-12-19 15:38] LABS: Glucometer 152 mg/dL (74-106)
[2022-12-19] MEDS: PROPOFOL 1,000 MG/100 ML VIAL 24.8 MG IV (15:40)
[2022-12-19] MEDS: VANCOMYCIN HCL 1,750 MG in 0.9 % SODIUM CHLORIDE 500 ML 250 MG IV (16:21)
[2022-12-19] MEDS: PROPOFOL 1,000 MG/100 ML VIAL 38.9 MG IV ×2 (19:44→21:49)
--- NOTE | 2022-12-19 20:55 | PC.NURSE ---
PICC Drilling Supervisor Documentation: Basilic PICC line triple lumen infusing 2 ports without difficulty. 3rd port flushes easily after blood return noted.
[2022-12-19] MEDS: GABAPENTIN 400 MG CAPSULE 800 MG PO (21:00)
[2022-12-19] MEDS: 0.9 % SODIUM CHLORIDE 1,000 ML 75 ML IV (21:25)
[2022-12-19] MEDS: CLONIDINE HCL 0.1 MG TABLET PO (21:46)
[2022-12-19] MEDS: ATORVASTATIN CALCIUM 10 MG TABLET PO (21:46)
--- NOTE | 2022-12-19 22:24 | DIETREC ---
Nutrition Recommendations: 1) If patient to remain intubated, recommend starting Jevity 1.5 at 20 ml/hr 2) Add Prostat 30 mL TID via feeding tube. RD following
[2022-12-20] VITALS (92 sets, daily range): BP systolic 104–215; BP diastolic 58–99; PULSE 80–120; RESP 20–25; TEMP 36.5–36.7; O2SAT 92–100
[2022-12-20 00:40] LABS: Glucometer 244 mg/dL (74-106)
[2022-12-20] MEDS: INSULIN ASPART 300 UNIT/3 ML PEN SUBQ ×5 (00:43→21:54)
[2022-12-20] MEDS: METHYLPREDNISOLONE SOD SUCC PF 40 MG/ML VIAL 60 MG IVP ×4 (00:44→20:36)
[2022-12-20] MEDS: SODIUM POLYSTYRENE SULFON 15 GM/60 ML ORAL.SUSP KAYEXALATE 45 GM PO ×2 (00:45→05:45)
--- NOTE | 2022-12-20 02:35 | PC.NURSE ---
Patient incontinent of black liquid stool. Care provided. Foul smelling.
--- NOTE | 2022-12-20 02:42 | PC.NURSE ---
Patient with large liquid dark stool. Having frequent flatulence with turning patient to provide care. No distress noted. Care completed.
--- NOTE | 2022-12-20 02:44 | PC.NURSE ---
Moderate amount liquid dark stool noted and care provided. Foul smelling.
[2022-12-20] MEDS: PROPOFOL 1,000 MG/100 ML VIAL 38.9 MG IV ×9 (03:04→23:31)
[2022-12-20] MEDS: PIPERACILLIN SODIUM/TAZOBACTAM 3.375 GM in 0.9 % SODIUM CHLORIDE 50 ML IV ×3 (03:04→20:36)
[2022-12-20] MEDS: HYDRALAZINE HCL 20 MG/ML VIAL 10 MG IVP (04:06)
[2022-12-20 04:54] LABS: Immature Granulocytes Abs Auto 0.05 10^3/uL (0.00-0.03); Immature Granulocytes Pct Auto 1.5 % (0.0-0.5); Lymphocytes Absolute Auto 0.1 10^3/uL (1.2-3.8); Lymphocytes Percent Auto 4.1 % (20.5-60.0); Mean Corpuscular HGB Conc 29.3 g/dL (29.9-35.2); Mean Corpuscular Hemoglobin 27.2 pg (26.7-34.0); Mean Corpuscular Volume 93.1 fL (81.0-99.0); Mean Platelet Volume 11.2 fL (9.5-13.5); Monocytes Absolute Auto 0.1 10^3/uL (0.3-0.8); Neutrophils Absolute Auto 3.2 10^3/uL (1.4-6.5); Neutrophils Percent Auto 92.4 % (43.0-75.0); Platelet Count 73 10^3/uL (150-450); Red Blood Count 2.46 10^6/uL (4.20-5.40); Red Cell Distribution Width 15.5 % (11.0-15.0); White Blood Count 3.4 10^3/uL (4.0-11.0)
[2022-12-20 05:28] LABS: Hematocrit 22.9 % (36.0-48.0); Hemoglobin 6.7 g/dL (12.0-16.0)
[2022-12-20 05:29] LABS: Alanine Aminotransferase 122 U/L (14-59); Albumin Globulin Ratio 0.6; Albumin Level 1.8 g/dL (3.4-5.0); Alkaline Phosphatase 98 U/L (46-116); Anion Gap 12.1; Aspartate Amino Transferase 57 U/L (15-37); BUN Creatinine Ratio 47.7; Bilirubin Total 0.2 mg/dL (0.2-1.0); Calcium 7.2 mg/dL (8.5-10.1); Carbon Dioxide 29.6 mmol/L (21.0-32.0); Chloride 110 mmol/L (98-107); Estimated GFR (African America 51 (>=60); Estimated GFR (Non-African Ame 42 (>=60); Globulin 2.8 g/dL; Glucose 281 mg/dL (74-106); Potassium 3.7 mmol/L (3.5-5.1); Sodium 148 mmol/L (136-145); Total Protein 4.6 g/dL (6.4-8.2)
[2022-12-20] MEDS: GABAPENTIN 400 MG CAPSULE 800 MG PO ×3 (05:40→21:47)
[2022-12-20] MEDS: CLONIDINE HCL 0.1 MG TABLET PO ×2 (05:40→08:00)
[2022-12-20] MEDS: LEVOTHYROXINE SODIUM 100 MCG TABLET PO (05:40)
[2022-12-20] MEDS: IPRATROPIUM/ALBUTEROL SULFATE 3 ML AMPUL.NEB IH ×4 (05:50→22:24)
--- NOTE | 2022-12-20 06:00 | XR_ITS ---
The [address] [address] Patient Name: KAM ESTES MRN: [id number] date: 1960 Sex: F Assigned Patient Location: ICU Current Patient Location: ICU Accession/Order Number: [id number] Exam Date: 12/20/2022 05:30 Report Date: 12/20/2022 06:30 At the request of: MARLENE LEVI Procedure: XR chest 1V EXAMINATION: XR chest 1V HISTORY: Vented ; follow-up patient on ventilator COMPARISON: XR chest 12/19/2022 FINDINGS: LUNGS: Endotracheal tube with tip suspected to be 5.5 cm above the jill. Moderate infiltrates within lung bases. VASCULATURE: No increased pulmonary vasculature. PLEURA: No pneumothorax, effusion, or pleural thickening. CARDIAC: No cardiomegaly or cardiac silhouette abnormality. MEDIASTINUM: No visible mass or adenopathy. BONES: No fracture or visible bone lesion. OTHER: Nasogastric tube extends below the diaphragm. Right PICC line with tip near cavoatrial junction. XR/XR chest 1V IMPRESSION: 1. Examination is slightly limited by patient body habitus and AP portable technique. 2. Grossly stable lines and tubes. 3. Grossly stable moderate bilateral infiltrates. Electronically authenticated by: ROSA HANNON Date: 12/20/2022 06:30
[2022-12-20 06:16] LABS: ABG PCO2 57.1 mmHg (35.0-45.0); PO2 ABG 73.8 mmHg (80.0-100.0); pH ABG 7.317 (7.350-7.450)
[2022-12-20 06:17] LABS: Allen Test POSITIVE (POSITIVE); Fractionated Inspired Oxygen 30 %; HCO3 ABG 29.2 mmol/L (22.0-26.0); O2 Mode MECH VENT; Oxygen Saturation ABG 95.2 %; Puncture Site LR; Rate 20; Vent Mode AC
[2022-12-20 06:18] LABS: Tidal Volume 400
[2022-12-20 06:24] LABS: Glucometer 257 mg/dL (74-106)
--- NOTE | 2022-12-20 06:40 | PC.NURSE ---
Patient intake includes medications ordered by physician and flushes of medications. Patient with extremely large liquid brown stool that required bed linens to be completely changed and patient cleansed due to extensiveness of amount.
--- NOTE | 2022-12-20 07:39 | P.PLCN_ITS ---
History of Present Illness History of Present Illness Consult date: 12/20/22 Requesting physician: Babs Lancaster Chief complaint: Respiratory failure Narrative: This is a 62yo female, well known to me with history of COPD and AIXA - non- compliant with PAP therapy. She was just admitted to [facility] ~11/30/2022 with acute hypercapnic respiratory failure associated with AECOPD and HCAP. She was discharged back to her ECF and was supposed to have a F/U appointment with me on 12/20/2022. She was noted to be more somnolent with mental status changes at the F on 12/18/2022. She was brought to the ER for evaluation. ABG revealed acute hypercapnia yet again. She was placed on BiPAP here in the ER, but became agitated with its use (as with admission 11/30/2022), but placed back on it. ABG did not improve and she was urgently intubated in the ER. BP were increased initially, but she became hypotensive after intubation. She has remained on the ventilator since. ABGs continue to show hypercapnia, but now has concomitant non-anion gap metabolic acidosis. Review of Systems ROS Status of ROS unobtainable due to endotracheal tube [facility] Medical History (Updated 12/18/22 @ 19:43 by Babs Lancaster MD) Social History Smoking status: Former smoker Highest level of school completed/degree received: don't know Meds Home Medications and Allergies Home Medications Medication Instructions Recorded Confirmed Type acetaminophen 500 mg tablet 1,000 mg PO Q6H PRN fever 11/29/22 12/18/22 History alendronate 70 mg tablet 70 mg PO QDAY 11/29/22 12/18/22 History alprazolam 0.25 mg tablet 0.25 mg PO TID PRN anxiety 11/29/22 12/18/22 History apixaban 5 mg tablet (Eliquis) 5 mg PO Q12H 11/29/22 12/18/22 History atorvastatin 10 mg tablet 10 mg PO .qhs 11/29/22 12/18/22 History budesonide-formoterol HFA 80 2 inh inhalation BID 11/29/22 12/18/22 History mcg-4.5 mcg/actuation aerosol inhaler (Symbicort) bupropion HCl (smoking deter) 150 150 mg PO BID 11/29/22 12/18/22 History mg tablet,12 hr sustained-release(smoking deterrent) calcium gluconate 650 mg tablet 650 mg PO BID 11/29/22 12/18/22 History cetirizine 10 mg tablet (24Hour 10 mg PO DAILY PRN allergy symptoms 11/29/22 12/18/22 History Allergy) diclofenac potassium 50 mg tablet 50 mg PO Q12H 11/29/22 12/18/22 History ferrous sulfate 325 mg (65 mg 325 mg PO DAILY 11/29/22 12/18/22 History iron) tablet (Feosol) gabapentin 800 mg tablet 800 mg PO TID 11/29/22 12/18/22 History loperamide 2 mg capsule 2 mg PO Q6H PRN loose stool 11/29/22 12/18/22 History metoprolol succinate 100 mg 150 mg PO QDAY 11/29/22 12/18/22 History tablet,extended release 24 hr montelukast 10 mg tablet 10 mg PO DAILY 11/29/22 12/18/22 History (Singulair) omeprazole 40 mg capsule,delayed 40 mg PO DAILY 11/29/22 12/18/22 History release roflumilast 500 mcg tablet 500 mcg PO DAILY 11/29/22 12/18/22 History (Daliresp) tiotropium bromide 2.5 2 inh inhalation Q24H 11/29/22 12/18/22 History mcg/actuation mist for inhalation (Spiriva Respimat) aripiprazole 5 mg tablet 5 mg PO QAM #30 tabs 12/02/22 12/18/22 Rx benzonatate 100 mg capsule 200 mg PO Q8H PRN Cough #90 caps 12/02/22 12/18/22 Rx clonidine HCl 0.1 mg tablet 0.1 mg PO TID #90 tabs 12/02/22 12/18/22 Rx doxepin 10 mg capsule 25 mg PO BID #60 caps 12/02/22 12/18/22 Rx furosemide 20 mg tablet 40 mg PO QDAY #60 tabs 12/02/22 12/18/22 Rx hyoscyamine sulfate 0.125 mg 0.125 mg sublingual QID PRN 12/02/22 12/18/22 Rx sublingual tablet Cramping #120 tabs ipratropium 0.5 mg-albuterol 3 mg 3 ml inhalation Q2H PRN Shortness 12/02/22 12/18/22 Rx (2.5 mg base)/3 mL nebulization Of Breath Or Wheezing #180 mL soln ipratropium 0.5 mg-albuterol 3 mg 3 ml inhalation Q6H #180 mL 12/02/22 12/18/22 Rx (2.5 mg base)/3 mL nebulization soln nystatin 100,000 unit/gram topical 1 applic topical BID #60 grams 12/02/22 12/18/22 Rx powder (Nystop) prednisone 10 mg tablet 50 mg PO DAILY #47 tabs 12/02/22 12/18/22 Rx Allergies Allergy/AdvReac Type Severity Reaction Status Date / Time codeine AdvReac Intermediate Verified 11/29/22 15:53 coumadin AdvReac Intermediate Uncoded 11/29/22 15:53 Exam Constitutional Vital Signs, click to edit/add: Last Vital Signs Temp 98.8 F 12/19/22 13:16 Pulse 118 H 12/20/22 06:40 Resp 20 12/20/22 06:40 BP 210/65 H 12/20/22 06:35 Pulse Ox 95 12/20/22 06:40 O2 Del Method Mechanical Ventilator 12/20/22 06:10 O2 Flow Rate 3.5 12/18/22 15:27 FiO2 30 12/20/22 06:40 Common normals: average body habitus General appearance: patient mechanically ventilated Nutritional appearance: obese morbidly obese [facility] Other: 7.5 ETT, left NGT GI Inspection: central obesity Auscultation: normoactive bowel sounds Extremity General: edema (Trace to mild BLE edema) Neuro Motor exam: no tremor noted Psych Other: Sedated Results Laboratory Findings ABG, PT/INR, D-dimer: ABG ABG pH 7.317 (7.350-7.450) L 12/20/22 06:10 ABG pCO2 57.1 mmHg (35.0-45.0) H* 12/20/22 06:10 ABG pO2 73.8 mmHg (80.0-100.0) L 12/20/22 06:10 ABG O2 Saturation 95.2 % 12/20/22 06:10 Abnormal lab findings: Abnormal Labs 12/18/22 12/18/22 12/18/22 03:59 15:22 15:38 WBC RBC 2.55 L 2.61 L Hgb 7.2 L 7.2 L Hct 24.0 L 25.4 L MCHC 28.3 L RDW 15.4 H 15.2 H Plt Count 99 L 78 L Neut % (Auto) 79.4 H Lymph % (Auto) 12.8 L Eos % (Auto) Baso % (Auto) 0.1 L 0.0 L Lymph # (Auto) 0.6 L Vernon # (Auto) 0.2 L Abs Immat Gran (auto) 0.08 H 0.05 H Imm/Tot Granulo (auto) 1.1 H 1.1 H ABG pH 7.180 L* ABG pCO2 87.2 H* ABG pO2 169.0 H ABG HCO3 32.5 H ABG Base Excess 4.2 H VBG pCO2 54.6 H Sodium Potassium 6.3 H* Chloride 109 H Carbon Dioxide 33.1 H BUN 79.0 H* Creatinine 1.30 H Est GFR ( Amer) 50 L Est GFR (Non-Af Amer) 41 L Glucose 130 H Calcium 7.9 L Total Bilirubin 0.1 L AST 211 H ALT 215 H Alkaline Phosphatase 133 H NT-Pro-B Natriuret Pep 4611.0 H* Total Protein 4.9 L Albumin 2.2 L Urine Protein Urine RBC Urine WBC Urine Yeast POC Glucose 12/18/22 12/18/22 12/18/22 18:28 19:04 19:20 WBC RBC Hgb Hct MCHC RDW Plt Count Neut % (Auto) Lymph % (Auto) Eos % (Auto) Baso % (Auto) Lymph # (Auto) Vernon # (Auto) Abs Immat Gran (auto) Imm/Tot Granulo (auto) ABG pH 7.169 L* ABG pCO2 87.4 H* ABG pO2 164.0 H ABG HCO3 31.8 H ABG Base Excess 3.2 H VBG pCO2 Sodium Potassium 5.7 H Chloride Carbon Dioxide BUN Creatinine Est GFR ( Amer) Est GFR (Non-Af Amer) Glucose Calcium Total Bilirubin AST ALT Alkaline Phosphatase NT-Pro-B Natriuret Pep Total Protein Albumin Urine Protein 30 A Urine RBC 2-5 A Urine WBC 0-2 A Urine Yeast Seen A POC Glucose 12/18/22 12/19/2212/19/23 20:38 08:32 09:39 WBC RBC 2.55 L Hgb 7.1 L Hct 24.6 L MCHC 28.9 L RDW 15.3 H Plt Count 86 L Neut % (Auto) 79.4 H Lymph % (Auto) 13.2 L Eos % (Auto) Baso % (Auto) 0.1 L Lymph # (Auto) 0.9 L Vernon # (Auto) Abs Immat Gran (auto) 0.13 H Imm/Tot Granulo (auto) 1.8 H ABG pH 7.273 L* 7.301 L ABG pCO2 69.2 H* 63.7 H* ABG pO2 108.0 H ABG HCO3 32.0 H 31.4 H ABG Base Excess 5.1 H 5 H VBG pCO2 Sodium Potassium 6.0 H Chloride 109 H Carbon Dioxide 32.2 H BUN 71.0 H Creatinine 1.09 H Est GFR ( Amer) Est GFR (Non-Af Amer) 51 L Glucose 72 L Calcium 8.3 L Total Bilirubin AST 126 H ALT 213 H Alkaline Phosphatase 134 H NT-Pro-B Natriuret Pep 3017.0 H* Total Protein 4.8 L Albumin 1.9 L Urine Protein Urine RBC Urine WBC Urine Yeast POC Glucose 12/19/22 12/20/22 12/20/22 15:36 00:38 04:00 WBC 3.4 L RBC 2.46 L Hgb 6.7 L* Hct 22.9 L* MCHC 29.3 L RDW 15.5 H Plt Count 73 L Neut % (Auto) 92.4 H Lymph % (Auto) 4.1 L Eos % (Auto) 0.0 L Baso % (Auto) 0.0 L Lymph # (Auto) 0.1 L Vernon # (Auto) 0.1 L Abs Immat Gran (auto) 0.05 H Imm/Tot Granulo (auto) 1.5 H ABG pH ABG pCO2 ABG pO2 ABG HCO3 ABG Base Excess VBG pCO2 Sodium 148 H Potassium Chloride 110 H Carbon Dioxide BUN 61.0 H Creatinine 1.28 H Est GFR ( Amer) 51 L Est GFR (Non-Af Amer) 42 L Glucose 281 H Calcium 7.2 L Total Bilirubin AST 57 H ALT 122 H Alkaline Phosphatase NT-Pro-B Natriuret Pep 1993.0 H* Total Protein 4.6 L Albumin 1.8 L Urine Protein Urine RBC Urine WBC Urine Yeast POC Glucose 152 H 244 H 12/20/22 12/20/22 06:10 06:22 WBC RBC Hgb Hct MCHC RDW Plt Count Neut % (Auto) Lymph % (Auto) Eos % (Auto) Baso % (Auto) Lymph # (Auto) Vernon # (Auto) Abs Immat Gran (auto) Imm/Tot Granulo (auto) ABG pH 7.317 L ABG pCO2 57.1 H* ABG pO2 73.8 L ABG HCO3 29.2 H ABG Base Excess 3.0 H VBG pCO2 Sodium Potassium Chloride Carbon Dioxide BUN Creatinine Est GFR ( Amer) Est GFR (Non-Af Amer) Glucose Calcium Total Bilirubin AST ALT Alkaline Phosphatase NT-Pro-B Natriuret Pep Total Protein Albumin Urine Protein Urine RBC Urine WBC Urine Yeast POC Glucose 257 H Diagnostic Findings Chest x-ray: report reviewed Assessment and Plan Assessment and Plan (1) Acute respiratory failure with hypercapnia: Plan 1.??? [id number] hypoxic and hypercapnic respiratory failure.? Secondary to AECOPD, and AIXA/OHS d/t non-compliance with PAP therapy.? Remains on the ventilator for now.? Hypercapnia improved.? RT reporting increased secretions ? CXR does not show any infiltrate.? Will monitor for now ? no plans for bronchos copy at the moment. 2.??? Non-anion gap metabolic acidosis.? Secondary to hyperchloremia from normal saline administration for hypotension.? Patient appears to have developed hypotension after intubation, suggesting that sedation was a major contributing factor.? She became hypertensive this AM ? BP now normal range.? Change NS to LR for IVF. 3.??? Obstructive sleep apnea (AIXA) + Obesity-hypoventilation syndrome (OHS).? Non-compliant with BiPAP.? This was addressed last hospital admission as well as prior outpatient visit on 10/26/2022.? Patient claimed she was using it, but the compliance pulled at that time showed ZERO compliance for using it >4 hours a day.? She was warned last visit that hypercapnic episodes may become recurrent without BiPAP use ? this is further solidified given this current admission. 4.??? Iron deficiency anemia.? Worsening Hb this admission.? She previously received transfusion of PRBCs on 11/30/2022.? Question GI loss.? Recommend transfusion of PRBCs to improve CaO2. 5.??? Hyperkalemia.? Secondary to acidosis (intracellular efflux of K+ d/t extracellular influx of H+).?? Resolved. 6.??? Elevated BNP.? Suspect acute CHF ? question secondary to increased strain d/t respiratory failure and untreated/uncompensated AIXA/OHS.? Repeat echocardiogram ordered. 7.??? Elevated LFTs.? Suspect secondary to hepatic congestion secondary to acute CHF.? Continue to monitor. 8.??? Thrombocytopenia.? Plt baseline ~140, but has dropped to 73k.? Associated with acute illness vs. hepatic congestion from acute CHF?? Continue to monitor.? No acute/spontaneous bleeding noted. 9.??? Hypoalbuminemia.? Alb has dropped to 1.8.? Degree of protein calorie malnutrition +/- decreased hepatic production secondary to hepatic congestion? 10. Diarrhea.? Secondary to Kayexalate?? Stool studies pending ? history of C. diff. 11. Morbid obesity with BMI 46.1 inducing a restrictive pulmonary physiology.? Weight loss recommended. Patient is critically ill requiring intensive care unit management. Case discussed with RN and RT. 40 minutes critical care time.
[2022-12-20] MEDS: HYDRALAZINE HCL 20 MG/ML VIAL IVP (08:00)
--- NOTE | 2022-12-20 08:00 | US_ITS ---
The [address] [address] Patient Name: KAM ESTES MRN: [id number] date: 1960 Sex: F Assigned Patient Location: LAB Current Patient Location: ICU Accession/Order Number: [id number] Exam Date: 12/20/2022 08:15 Report Date: 12/20/2022 09:07 At the request of: MARLENE LEVI Procedure: US venous doppler LE BI EXAMINATION: US venous doppler LE BI HISTORY: erythema COMPARISON: No relevant comparison available. FINDINGS: REGION: Bilateral extremities THROMBI: None. COMPRESSIBILITY: Normal compressibility. FLOW: Normal waveform and antegrade flow between 5 and 20 cm/s. OTHER: None. US/US venous doppler LE BI IMPRESSION: 1. No deep vein thrombus within the right or left lower extremity. Electronically authenticated by: ROSA HANNON Date: 12/20/2022 09:07
[2022-12-20] MEDS: CALCIUM CARBONATE 600 MG TABLET PO ×2 (08:12→21:47)
[2022-12-20] MEDS: ARIPIPRAZOLE 5 MG TABLET PO (08:13)
[2022-12-20] MEDS: MONTELUKAST SODIUM 10 MG TABLET PO (08:13)
[2022-12-20] MEDS: PANTOPRAZOLE SODIUM 40 MG VIAL IV ×2 (08:13→21:45)
[2022-12-20] MEDS: METOPROLOL TARTRATE 25 MG TABLET PO ×2 (08:13→21:48)
[2022-12-20] MEDS: FERROUS SULFATE 325 MG TABLET PO (08:13)
[2022-12-20] MEDS: ROFLUMILAST 500 MCG TABLET PO (08:13)
[2022-12-20] MEDS: LIOTHYRONINE SODIUM 5 MCG TABLET PO (08:13)
[2022-12-20] MEDS: BUPROPION HCL 150 MG SR TABLET 12H PO ×2 (08:14→21:48)
--- NOTE | 2022-12-20 08:49 | P.PN_ITS ---
Progress Note: Subjective Subjective Interval history: Patient sedated on ventilator Exam Constitutional Vital Signs, click to edit/add: Last Vital Signs Temp 98.0 F 12/20/22 07:00 Pulse 113 H 12/20/22 07:00 Resp 23 12/20/22 07:00 BP 194/82 H 12/20/22 08:00 Pulse Ox 100 12/20/22 07:00 O2 Del Method Mechanical Ventilator 12/20/22 07:00 O2 Flow Rate 3.5 12/18/22 15:27 FiO2 30 12/20/22 06:40 Common normals: average body habitus General appearance: patient mechanically ventilated Nutritional appearance: obese morbidly obese [facility] Other: 7.5 ETT, left NGT GI Inspection: central obesity Auscultation: normoactive bowel sounds Extremity General: edema (Trace to mild BLE edema) Neuro Motor exam: no tremor noted Psych Other: Sedated Progress Note: Objective Labs Labs: Short CBC 12/19/22 12/20/22 Range/Units 08:32 04:00 WBC 7.1 3.4 L (4.0-11.0) 10^3/uL Hgb 7.1 L 6.7 L* (12.0-16.0) g/dL Hct 24.6 L 22.9 L* (36.0-48.0) % Plt Count 86 L 73 L (150-450) 10^3/uL BMP 12/19/22 12/20/22 08:32 04:00 Sodium 142 148 H Potassium 6.0 H 3.7 Chloride 109 H 110 H Carbon Dioxide 32.2 H 29.6 BUN 71.0 H 61.0 H Creatinine 1.09 H 1.28 H Glucose 72 L 281 H Calcium 8.3 L 7.2 L Liver Function 12/19/22 12/20/22 Range/Units 08:32 04:00 Total Bilirubin 0.2 0.2 (0.2-1.0) mg/dL AST 126 H 57 H (15-37) U/L ALT 213 H 122 H (14-59) U/L Alkaline Phosphatase 134 H 98 (46-116) U/L Albumin 1.9 L 1.8 L (3.4-5.0) g/dL Progress Note: A&P Assessment and Plan (1) Acute respiratory failure with hypercapnia: Plan Hypothermia (less than 96.8), tachycardia, respiratory distress, acute hypoxia, uncontrolled hypertension with hypertensive urgency that progressed in icu to hypotension secondary to healthcare facility acquired pneumonia resulting in acute exacerbation of COPD and acute hypercapnic and acute hypoxic respiratory failure with resp acidosis.? Patient currently ventilated.? This is resulted in severe sepsis with septic shock with multisystem organ dysfunction(resp, cardiac, liver, heme) antibiotics were adjusted yesterday. Patient stable overnight. Blood pressure up still at times. From a ventilator standpoint plan per pulmonology. Hypertensive urgency on admission-progressed to significant hypotension which resulted inShock requiring placed on Levophed.? off Levophed, blood pressure elevated now. Will adjust medications. Thrombocytopenia-as a result of the Multisystem organ dysfunction from the above-monitor daily Hyperkalemia on admission- stable today. Iron deficiency anemia? as well as anemia of acute blood loss , type cross and transfuse another 1 unit today.? repeat CBC posttransfusion , issue is she is O+ and may have a limited supply. doubled up Protonix IV. L Elevated LFTs as a function of the sepsis from above- continue to monitor Elevated BNP-This is likely combination of factors but this is actually pretty close to her baseline.Consider repeat echo Nutritional status-patient morbidly obese.? discussed with pulmonology about possible extubation and then can let her eat versus starting to feed through tube Erythema bilateral lower extremities ultrasound of lower extremities, she is already been on Eliquis.? Which were holding today secondary to the possible bleeding.Ultrasound tomorrow Patient admitted to the ICU as an inpatient-on a ventilator, likely in the hospital 3 to 4 days minimum.Maintain inpatient status
--- NOTE | 2022-12-20 09:34 | CM.NOTE ---
Rounds made with Dr. Curiel. Currently intubated on vent. Resides at [facility] intermediate designer.
[2022-12-20] MEDS: BUDESONIDE 0.5 MG/2 ML AMPULE NEB IH ×2 (09:42→22:24)
--- NOTE | 2022-12-20 10:17 | SWNOTE1 ---
Pt is from [facility] senior living. Updates sent to [facility].
[2022-12-20] MEDS: 0.9 % SODIUM CHLORIDE 1,000 ML 75 ML IV (10:28)
[2022-12-20 10:54] LABS: Glucometer 243 mg/dL (74-106)
[2022-12-20] MEDS: APIXABAN 5 MG TABLET PO ×2 (10:54→21:51)
[2022-12-20] MEDS: LACTATED RINGER'S SOLUTION 1,000 ML 75 ML IV (11:00)
[2022-12-20 12:04] LABS: Occult Blood Positive
[2022-12-20 13:41] LABS: C. Difficile PCR NEGATIVE (NEGATIVE)
[2022-12-20 14:59] LABS: Hematocrit 26.3 % (36.0-48.0); Hemoglobin 8.6 g/dL (12.0-16.0); Immature Granulocytes Abs Auto 0.06 10^3/uL (0.00-0.03); Immature Granulocytes Pct Auto 1.6 % (0.0-0.5); Lymphocytes Absolute Auto 0.2 10^3/uL (1.2-3.8); Lymphocytes Percent Auto 3.9 % (20.5-60.0); Mean Corpuscular HGB Conc 32.7 g/dL (29.9-35.2); Mean Corpuscular Hemoglobin 29.5 pg (26.7-34.0); Mean Corpuscular Volume 90.1 fL (81.0-99.0); Mean Platelet Volume 10.9 fL (9.5-13.5); Monocytes Absolute Auto 0.1 10^3/uL (0.3-0.8); Monocytes Percent Auto 2.6 % (1.7-12.0); Neutrophils Absolute Auto 3.5 10^3/uL (1.4-6.5); Neutrophils Percent Auto 91.9 % (43.0-75.0); Platelet Count 81 10^3/uL (150-450); Red Blood Count 2.92 10^6/uL (4.20-5.40); Red Cell Distribution Width 15.4 % (11.0-15.0); White Blood Count 3.8 10^3/uL (4.0-11.0)
[2022-12-20 16:21] LABS: Glucometer 200 mg/dL (74-106)
[2022-12-20] MEDS: VANCOMYCIN HCL 1,750 MG in 0.9 % SODIUM CHLORIDE 500 ML 250 MG IV (16:46)
[2022-12-20] MEDS: CLONIDINE HCL 0.1 MG TABLET 0.2 MG PO (21:46)
[2022-12-20] MEDS: ATORVASTATIN CALCIUM 10 MG TABLET PO (21:47)
[2022-12-20 21:55] LABS: Glucometer 188 mg/dL (74-106)
[2022-12-21] VITALS (67 sets, daily range): BP systolic 95–151; BP diastolic 55–103; PULSE 41–111; RESP 12–45; TEMP 36.6–37.2; O2SAT 88–100; BMI 45.9
[2022-12-21] MEDS: METHYLPREDNISOLONE SOD SUCC PF 40 MG/ML VIAL 60 MG IVP ×3 (01:55→15:12)
[2022-12-21] MEDS: PROPOFOL 1,000 MG/100 ML VIAL 38.9 MG IV ×3 (01:56→07:09)
[2022-12-21] MEDS: LACTATED RINGER'S SOLUTION 1,000 ML 75 ML IV (01:57)
[2022-12-21] MEDS: PIPERACILLIN SODIUM/TAZOBACTAM 3.375 GM in 0.9 % SODIUM CHLORIDE 50 ML IV ×3 (04:17→20:21)
[2022-12-21 04:36] LABS: Hematocrit 26.2 % (36.0-48.0); Hemoglobin 8.3 g/dL (12.0-16.0); Immature Granulocytes Abs Auto 0.04 10^3/uL (0.00-0.03); Immature Granulocytes Pct Auto 1.2 % (0.0-0.5); Lymphocytes Absolute Auto 0.2 10^3/uL (1.2-3.8); Lymphocytes Percent Auto 5.7 % (20.5-60.0); Mean Corpuscular HGB Conc 31.7 g/dL (29.9-35.2); Mean Corpuscular Hemoglobin 28.3 pg (26.7-34.0); Mean Corpuscular Volume 89.4 fL (81.0-99.0); Mean Platelet Volume 10.6 fL (9.5-13.5); Monocytes Absolute Auto 0.1 10^3/uL (0.3-0.8); Monocytes Percent Auto 2.1 % (1.7-12.0); Platelet Count 88 10^3/uL (150-450); Red Blood Count 2.93 10^6/uL (4.20-5.40); Red Cell Distribution Width 15.5 % (11.0-15.0); White Blood Count 3.3 10^3/uL (4.0-11.0)
[2022-12-21 04:53] LABS: Triglycerides 125 mg/dL (<=150)
[2022-12-21 05:11] LABS: Alanine Aminotransferase 95 U/L (14-59); Albumin Globulin Ratio 0.6; Albumin Level 1.8 g/dL (3.4-5.0); Alkaline Phosphatase 82 U/L (46-116); Aspartate Amino Transferase 24 U/L (15-37); Bilirubin Total 0.2 mg/dL (0.2-1.0); Calcium 6.8 mg/dL (8.5-10.1); Carbon Dioxide 31.2 mmol/L (21.0-32.0); Chloride 111 mmol/L (98-107); Estimated GFR (African America >60 (>=60); Estimated GFR (Non-African Ame 59 (>=60); Globulin 2.8 g/dL; Glucose 214 mg/dL (74-106); Sodium 149 mmol/L (136-145); Total Protein 4.6 g/dL (6.4-8.2)
[2022-12-21 05:18] LABS: Anion Gap 9.4
[2022-12-21 05:21] LABS: Potassium 2.6 mmol/L (3.5-5.1)
[2022-12-21] MEDS: IPRATROPIUM/ALBUTEROL SULFATE 3 ML AMPUL.NEB IH ×5 (05:29→22:44)
[2022-12-21 05:57] LABS: Allen Test POS (POSITIVE); Fractionated Inspired Oxygen 30 %; O2 Mode VENT; Rate 20; Tidal Volume 400; Vent Mode AC
[2022-12-21 05:58] LABS: Puncture Site RIGHT RADIAL
--- NOTE | 2022-12-21 06:00 | XR_ITS ---
[address] [address] Patient Name: KAM ESTES MRN: [id number] date: 1960 Sex: F Assigned Patient Location: ICU Current Patient Location: ICU Accession/Order Number: [id number] Exam Date: 12/21/2022 05:40 Report Date: 12/21/2022 06:43 At the request of: MARLENE LEVI Procedure: XR chest 1V EXAMINATION: XR chest 1V HISTORY: Vented ; intubation follow-up COMPARISON: XR chest 12/20/2022 FINDINGS: LUNGS: Endotracheal tube with tip 3.9 cm above the jill. Underexpanded lungs with moderate opacities throughout right lung. VASCULATURE: No increased pulmonary vasculature. PLEURA: No pneumothorax. Pleural effusion cannot be excluded. CARDIAC: Obscured. MEDIASTINUM: No definite widening, but limited evaluation due to patient rotation. BONES: No fracture or visible bone lesion. OTHER: Right PICC line with tip near cavoatrial junction. XR/XR chest 1V IMPRESSION: 1. Limited examination due to patient body habitus and portable technique. 2. Endotracheal tube approximately 3.9 cm above the jill. 3. Markedly underexpanded lungs with moderate-marked opacities throughout right lung; infiltrates versus atelectasis versus layering pleural fluid; new compared to prior study. Electronically authenticated by: ROSA HANNON Date: 12/21/2022 06:43
[2022-12-21] MEDS: LEVOTHYROXINE SODIUM 100 MCG TABLET PO (06:07)
[2022-12-21 06:42] LABS: pH ABG 7.373 (7.350-7.450)
[2022-12-21 06:43] LABS: ABG PCO2 54.9 mmHg (35.0-45.0); HCO3 ABG 31.9 mmol/L (22.0-26.0); PO2 ABG 79.1 mmHg (80.0-100.0)
[2022-12-21 06:44] LABS: Base Excess ABG 6.7 mmol/L (-2.0-2.0); Oxygen Saturation ABG 96.6 %
--- NOTE | 2022-12-21 07:32 | P.PLPN_ITS ---
Progress Note: A&P Assessment and Plan (1) Acute respiratory failure with hypercapnia: Plan 1.??? [id number] hypoxic and hypercapnic respiratory failure.? Secondary to AECOPD, and AIXA/OHS d/t non-compliance with PAP therapy.? ABG improved.? Increased markings on right side ? edema/congestion vs. mucus plugging vs. VAP ? patient afebrile, no leukocytosis.? Will begin sedation vacation/weaning protocol.? If fails d/t increased secretions, will need bronchoscopy for clearance of secretions.? If she does well, possible ventilator liberation today.? The difficulty will be to transition patient to BiPAP bridge as she does not like it. 2.??? Non-anion gap metabolic acidosis.? Secondary to hyperchloremia from normal saline administration for hypotension.? Cl- not significantly improved, but overall acid-base status is better.? NS changed to LR yesterday. 3.??? Obstructive sleep apnea (AIXA) + Obesity-hypoventilation syndrome (OHS).? Non-compliant with BiPAP.? Recurrent hospitalizations +/- intubation will be more frequent as long as patient refuses to use BiPAP as recommended outpatient.? She and family need a serious discussion about their goals of therapy/treatment and how reasonable they are. 4.??? Iron deficiency anemia. Received another unit PRBC yesterday.? Stool occult positive. 5.??? Hyperkalemia.? Secondary to acidosis (intracellular efflux of K+ d/t extracellular influx of H+).?? Now hypokalemic as acidosis is resolving?K+ was removed by Kayexalate instead of simply relying on shifting into cells until the acidosis improved. 6.??? Elevated BNP.? Suspect acute CHF ? question secondary to increased strain d/t respiratory failure and untreated/uncompensated AIXA/OHS.? Echo pending. 7.??? Elevated LFTs.? Suspect secondary to hepatic congestion secondary to acute CHF.? Improved. 8.??? Thrombocytopenia.? Associated with acute illness vs. hepatic congestion from acute CHF? Slight improvement today. 9.??? Hypoalbuminemia.? Alb remains at 1.8.? If not extubated, need to start TF. 10. Diarrhea.? Secondary to Kayexalate?? Stool studies remain pending ? history of C. diff. 11. Morbid obesity with BMI 46.1 inducing a restrictive pulmonary physiology.? Weight loss recommended. Subjective Subjective Interval history: Discussed with RN, RT. Patient remains sedated, on ventilator. No significant issues overnight. ABGs improved this AM. Exam Constitutional Vital Signs, click to edit/add: Last Vital Signs Temp 97.7 F 12/20/22 16:09 Pulse 89 12/21/22 06:00 Resp 21 12/21/22 05:29 BP 104/61 12/21/22 05:00 Pulse Ox 98 12/21/22 05:29 O2 Del Method Mechanical Ventilator 12/20/22 22:24 O2 Flow Rate 3.5 12/18/22 15:27 FiO2 30 12/21/22 05:29 Common normals: no apparent distress General appearance: patient mechanically ventilated Nutritional appearance: obese HEN[facility] Other: ETT, left NGT Chest Chest: symmetrical chest wall rise; no crepitus Respiratory Effort & inspection: tachypneic (Breathing over set rate on ventilator, but non- labored); no decreased respiratory effort Auscultation: crackles (Decreased from yesterday) and diminished lung sounds Cardio Rate: regular rate Rhythm: regular rhythm Bladder/kidney exam: catheter in place Extremity General: edema (Trace-1+ BLE ankle/foot; B/L SCDs) Other: RUE PICC Neuro Sensorium/orientation: somnolent (Sedated) Psych Attitude: calm
--- NOTE | 2022-12-21 07:39 | CM.NOTE ---
Rounds made with Dr. Curiel, pt remains intubated. Dr. Cardenas will see pt today for possible extubation.
[2022-12-21] MEDS: INSULIN ASPART 300 UNIT/3 ML PEN SUBQ ×4 (07:57→22:08)
[2022-12-21] MEDS: POTASSIUM CHLORIDE 40 MEQ in 0.9 % SODIUM CHLORIDE 250 ML 67.5 MEQ IV ×2 (08:01→13:48)
[2022-12-21 08:08] LABS: Glucometer 207 mg/dL (74-106)
[2022-12-21] MEDS: PANTOPRAZOLE SODIUM 40 MG VIAL IV ×2 (08:15→20:23)
[2022-12-21] MEDS: CALCIUM CARBONATE 600 MG TABLET PO ×2 (08:15→20:11)
[2022-12-21] MEDS: ROFLUMILAST 500 MCG TABLET PO (08:15)
[2022-12-21] MEDS: ARIPIPRAZOLE 5 MG TABLET PO (08:15)
[2022-12-21] MEDS: FERROUS SULFATE 325 MG TABLET PO (08:15)
[2022-12-21] MEDS: METOPROLOL TARTRATE 25 MG TABLET PO ×2 (08:15→20:11)
[2022-12-21] MEDS: MONTELUKAST SODIUM 10 MG TABLET PO (08:15)
[2022-12-21] MEDS: LIOTHYRONINE SODIUM 5 MCG TABLET PO (08:15)
--- NOTE | 2022-12-21 09:18 | RESP.RT ---
Pt etubated to 2 lpm NC without incident. SpO2 100% post 10 min on 2 lpm NC.
--- NOTE | 2022-12-21 10:31 | P.PN_ITS ---
Progress Note: Subjective Subjective Interval history: No significant issues overnight, patient remains on ventilator Exam Constitutional Vital Signs, click to edit/add: Last Vital Signs Temp 98.3 F 12/21/22 05:00 Pulse 88 12/21/22 10:00 Resp 21 12/21/22 05:29 BP 95/68 12/21/22 07:00 Pulse Ox 100 12/21/22 09:20 O2 Del Method Nasal Cannula 12/21/22 09:20 O2 Flow Rate 2 12/21/22 09:20 FiO2 30 12/21/22 05:29 Common normals: average body habitus General appearance: patient mechanically ventilated Nutritional appearance: obese morbidly obese HENMT Other: 7.5 ETT, left NGT GI Inspection: central obesity Auscultation: normoactive bowel sounds Extremity General: edema (Trace to mild BLE edema) Neuro Motor exam: no tremor noted Psych Other: Sedated Progress Note: Objective Labs Labs: Short CBC 12/20/22 12/21/22 Range/Units 14:48 04:05 WBC 3.8 L 3.3 L (4.0-11.0) 10^3/uL Hgb 8.6 L 8.3 L (12.0-16.0) g/dL Hct 26.3 L 26.2 L (36.0-48.0) % Plt Count 81 L 88 L (150-450) 10^3/uL BMP 12/21/22 04:05 Sodium 149 H Potassium 2.6 L* Chloride 111 H Carbon Dioxide 31.2 BUN 48.0 H Creatinine 0.96 Glucose 214 H Calcium 6.8 L Liver Function 12/21/22 Range/Units 04:05 Total Bilirubin 0.2 (0.2-1.0) mg/dL AST 24 (15-37) U/L ALT 95 H (14-59) U/L Alkaline Phosphatase 82 (46-116) U/L Albumin 1.8 L (3.4-5.0) g/dL Progress Note: A&P Assessment and Plan (1) Acute respiratory failure with hypercapnia: Plan Hypothermia (less than 96.8), tachycardia, respiratory distress, acute hypoxia, uncontrolled hypertension with hypertensive urgency that progressed in icu to hypotension secondary to healthcare facility acquired pneumonia resulting in acute exacerbation of COPD and acute hypercapnic and acute hypoxic respiratory failure with resp acidosis.? Now with neutropenia, patient currently ventilated.? This is resulted in severe sepsis with septic shock with multisystem organ dysfunction(resp, cardiac, liver, heme) antibiotics were adjusted stable overnight, plan per pulmonology in regards to extubation Hypertensive urgency on admission-progressed to significant hypotension which resulted in Shock requiring placed on Levophed.? blood pressures elevated yesterday, improved today, will decrease her clonidine. Thrombocytopenia-as a result of the Multisystem organ dysfunction from the above-monitor daily Hyperkalemia on admission- now hypokalemia-we will supplement i Iron deficiency anemia? as well as anemia of acute blood loss -currently stable after receiving 2 units Elevated LFTs as a function of the sepsis from above- continue to monitor Elevated BNP-This is likely combination of factors but this is actually pretty close to her baseline.Consider repeat echo Nutritional status-patient morbidly obese.? if planned extubation today, she can resume diet Erythema bilateral lower extremities ultrasound of lower extremities, she is already been on Eliquis.? ultrasound showed no DVT Patient admitted to the ICU as an inpatient-on a ventilator, likely in the hospital 3 to 4 days minimum.Maintain inpatient status
[2022-12-21] MEDS: APIXABAN 5 MG TABLET PO (11:45)
[2022-12-21 11:52] LABS: Glucometer 152 mg/dL (74-106)
[2022-12-21] MEDS: BUDESONIDE 0.5 MG/2 ML AMPULE NEB IH ×2 (11:59→22:43)
[2022-12-21 13:08] LABS: Anion Gap 11.1; BUN Creatinine Ratio 44.4; Calcium 7.2 mg/dL (8.5-10.1); Carbon Dioxide 31.8 mmol/L (21.0-32.0); Chloride 110 mmol/L (98-107); Estimated GFR (African America >60 (>=60); Estimated GFR (Non-African Ame 56 (>=60); Glucose 138 mg/dL (74-106); Sodium 150 mmol/L (136-145)
[2022-12-21 13:20] LABS: Potassium 2.9 mmol/L (3.5-5.1)
[2022-12-21] MEDS: ALPRAZOLAM 0.25 MG TABLET PO ×2 (13:41→20:09)
[2022-12-21] MEDS: CLONIDINE HCL 0.1 MG TABLET PO ×2 (13:44→21:10)
--- NOTE | 2022-12-21 14:00 | DIETREC ---
Recommend prostat @ 30 ml bid po nutritional supplement
[2022-12-21 16:35] LABS: Glucometer 173 mg/dL (74-106)
[2022-12-21] MEDS: VANCOMYCIN HCL 1,750 MG in 0.9 % SODIUM CHLORIDE 500 ML 250 MG IV (16:55)
[2022-12-21 17:10] LABS: Potassium 3.3 mmol/L (3.5-5.1)
[2022-12-21] MEDS: LOPERAMIDE HCL 2 MG CAPSULE PO (17:32)
[2022-12-21] MEDS: CETIRIZINE HCL 10 MG TABLET PO (20:11)
[2022-12-21] MEDS: BUPROPION HCL 150 MG SR TABLET 12H PO (20:22)
[2022-12-21] MEDS: APIXABAN 5 MG TABLET 2.5 MG PO (20:22)
--- NOTE | 2022-12-21 20:33 | PC.NURSE ---
Pt requesting breathing treatment at this time. RT notified.
[2022-12-21] MEDS: ATORVASTATIN CALCIUM 10 MG TABLET PO (21:10)
[2022-12-21] MEDS: ACETAMINOPHEN 500 MG TABLET 1000 MG PO (21:11)
[2022-12-21] MEDS: METHYLPREDNISOLONE SOD SUCC PF 125 MG/2 ML VIAL 60 MG IVP (22:03)
[2022-12-21 22:09] LABS: Glucometer 143 mg/dL (74-106)
--- NOTE | 2022-12-21 23:03 | RESP.RT ---
Pt ripped BIPAP off after wearing it only for approx 10 minutes, Pt stated She is not wearing this anymore, I don't like it! Pt educated on what could happen if she does not wear it. Pt still refused to put it back on.
--- NOTE | 2022-12-21 23:09 | RESP.RT ---
Pt back on 3L nasal cannula because pt is refusing BIPAP.
[2022-12-22] VITALS (32 sets, daily range): BP systolic 106–162; BP diastolic 74–110; PULSE 96–123; RESP 12–37; TEMP 36.4–36.7; O2SAT 88–99
[2022-12-22] MEDS: LORAZEPAM 2 MG/ML 1 ML VIAL 0.5 MG IV ×2 (00:21→10:19)
[2022-12-22] MEDS: IPRATROPIUM/ALBUTEROL SULFATE 3 ML AMPUL.NEB IH ×3 (01:35→11:07)
--- NOTE | 2022-12-22 01:50 | RESP.RT ---
Sp02 81% on 3L nasal cannula. Titrated up to 6L and Sp02 ranging from 82%-85%. Placed pt on BIPAP 15/5 Fi02 40%. Sp02 increased to 93%.
[2022-12-22] MEDS: METHYLPREDNISOLONE SOD SUCC PF 125 MG/2 ML VIAL 60 MG IVP ×2 (03:24→10:28)
[2022-12-22] MEDS: PIPERACILLIN SODIUM/TAZOBACTAM 3.375 GM in 0.9 % SODIUM CHLORIDE 50 ML IV ×2 (03:27→11:55)
[2022-12-22 04:22] LABS: Hematocrit 36.8 % (36.0-48.0); Hemoglobin 10.9 g/dL (12.0-16.0); Mean Corpuscular HGB Conc 29.6 g/dL (29.9-35.2); Mean Corpuscular Hemoglobin 27.7 pg (26.7-34.0); Mean Corpuscular Volume 93.6 fL (81.0-99.0); Mean Platelet Volume 10.2 fL (9.5-13.5); Platelet Count 194 10^3/uL (150-450); Red Blood Count 3.93 10^6/uL (4.20-5.40); Red Cell Distribution Width 15.7 % (11.0-15.0); White Blood Count 19.2 10^3/uL (4.0-11.0)
[2022-12-22 04:39] LABS: Band Neutrophils Absolute 0.6 10^3/uL (0.0-0.3); Eosinophils Absolute Manual 0.19 10^3/uL (0.00-0.70); Lymphocytes Absolute Manual 0.38 10^3/uL (1.20-3.80); Metamyelocytes Absolute Manual 0.19; Monocytes Absolute Manual 0.38 10^3/uL (0.30-0.80); Segmented Neut Absolute Manual 17.47 10^3/uL (1.4-6.5)
[2022-12-22 04:45] LABS: Alanine Aminotransferase 97 U/L (14-59); Albumin Globulin Ratio 0.6; Albumin Level 2.3 g/dL (3.4-5.0); Alkaline Phosphatase 108 U/L (46-116); Anion Gap 10.2; Aspartate Amino Transferase 33 U/L (15-37); BUN Creatinine Ratio 46.5; Bilirubin Total 0.3 mg/dL (0.2-1.0); Calcium 7.5 mg/dL (8.5-10.1); Carbon Dioxide 31.5 mmol/L (21.0-32.0); Chloride 110 mmol/L (98-107); Estimated GFR (African America >60 (>=60); Estimated GFR (Non-African Ame 56 (>=60); Globulin 3.7 g/dL; Glucose 152 mg/dL (74-106); Potassium 3.7 mmol/L (3.5-5.1); Sodium 148 mmol/L (136-145)
--- NOTE | 2022-12-22 06:00 | XR_ITS ---
The [address] [address] Patient Name: KAM ESTES MRN: [id number] date: 1960 Sex: F Assigned Patient Location: ICU Current Patient Location: ICU Accession/Order Number: [id number] Exam Date: 12/22/2022 06:10 Report Date: 12/22/2022 06:37 At the request of: MARLENE LEVI Procedure: XR chest 1V Exam: Radiographs: XR chest 1V Reason for exam: Vented Comparison: Chest x-ray from yesterday XR/XR chest 1V IMPRESSION: Airspace opacities in the right upper lung, some which are new, correlate clinically. Atelectasis and/or infiltrate in the lower lungs bilaterally, more evident on the left. Left pleural effusion is either small or moderate in size. Right PICC with tip near the SVC/RA junction. Pulmonary venous hypertension. Old bilateral rib fractures. Remainder of the chest is unremarkable. Electronically authenticated by: DEO PRAKASH Date: 12/22/2022 06:37
[2022-12-22] MEDS: FUROSEMIDE 40 MG/4 ML VIAL IVP (06:30)
[2022-12-22 06:49] LABS: Base Excess ABG -1.2 mmol/L (-2.0-2.0); HCO3 ABG 28.4 mmol/L (22.0-26.0); PO2 ABG 69.5 mmHg (80.0-100.0); pH ABG 7.099 (7.350-7.450)
[2022-12-22 06:50] LABS: Allen Test POSITIVE (POSITIVE); Liters per Minute 2; O2 Mode NC; Oxygen Saturation ABG 91.5 %; Puncture Site RR
--- NOTE | 2022-12-22 08:06 | P.PLPN_ITS ---
Progress Note: A&P Assessment and Plan (1) Acute respiratory failure with hypercapnia: Plan 1.??? Ywfvj-dv-giuosfx hypoxic and hypercapnic respiratory failure.? Secondary to AECOPD, and AIXA/OHS d/t non-compliance with PAP therapy.? Extubated 12/21/2022.? Worse this AM, on BiPAP 20/5 in attempt to avoid re-intubation.? Episodes are occurring more frequently and more severe, which is a poor prognostic indicator.? Will continue with current plan of care and intubate if necessary. 2.??? Staph aureus in sputum from 12/19/2022 ? this would be present on admission, NOT associated with any VAP.? Cannot R/O MSSA or MRSA pneumonia ? has remained on vancomycin and Zosyn since 12/19/2022.? Awaiting C&S; CXR worsening ? possible aspiration pneumonia vs. other. 3.??? Non-anion gap metabolic acidosis. ?Secondary to hyperchloremia.? Cl- has leveled off ~ 110.? Avoid further NaCl solutions if possible. 4.??? Obstructive sleep apnea (AIXA) + Obesity-hypoventilation syndrome (OHS).? Non-compliant with BiPAP outpatient.? Having to use BiPAP now as NIV to avoid re-intubation.? 5.??? Iron deficiency anemia. s/p PRBCs.? Monitoring Hb ? good at 10.9g/dL today. 6.??? Hyperkalemia.? Secondary to acidosis (intracellular efflux of K+ d/t extracellular influx of H+).?? Normalized today ? K+ @ 3.7. 7.??? Elevated BNP.? Suspect acute CHF.? Defer to Dr. Curiel for monitoring and management. 8.??? Elevated LFTs.? Suspect secondary to hepatic congestion secondary to acute CHF.? 9.??? Thrombocytopenia.? Associated with acute illness vs. hepatic congestion from acute CHF? Resolved. 10. Hypoalbuminemia.? 11. Diarrhea.? Secondary to Kayexalate. 12. Morbid obesity with BMI 46.1 inducing a restrictive pulmonary physiology.? W eight loss recommended. Prognosis is poor with recurrent hypercapnic episodes. She is critically ill, on the precipice for requiring intubation again. Discussion held with son who was present in the ICU regarding plan of care. He stated he had been thinking about it and acknowledged that he also noticed the patient's slow decline. He said he is going to reach out to family to discuss options. Plan for now is to remain full code. Recheck ABG - if worsening, will need intubation. Case discussed with RN, RT, and Dr. Curiel. 40 minutes critical care time. Subjective Subjective Interval history: Patient extubated yesterday, was confused. Wore BiPAP overnight, but eventually ripped it off. Became more somnolent and then obtunded. ABG showed re- development of uuppk-de-ituikdh hypercapnic respiratory failure. Placed back on BiPAP 20/5 in attempt to avoid re-intubation. After being placed back on BiPAP, she opened her eyes to my voice which is a sign of improvement. Had long discussion with son regarding the patient... This may be easily treatable of she would be compliant with BiPAP outpatient, but now she is having more frequent and more severe exacerbations. At the point where we need to discuss future options: Continue with aggressive treatment which would include tracheostomy with ventilator support if she continues to require recurrent intubation, or comfort measures (i.e. Hospice). Exam Constitutional Vital Signs, click to edit/add: Last Vital Signs Temp 98.2 F 12/21/22 23:48 Pulse 102 H 12/22/22 07:14 Resp 36 H 12/22/22 07:00 BP 144/74 H 12/22/22 06:30 Pulse Ox 94 L 12/22/22 07:14 O2 Del Method BIPAP 12/22/22 04:55 O2 Flow Rate 3 12/22/22 01:35 FiO2 30 12/22/22 07:14 Exam limitations: altered mental status General appearance: lethargic Nutritional appearance: obese Orientation/consciousness: Yes obtunded HENMT Other: Wearing BiPAP mask Respiratory Effort & inspection: tachypneic and uses accessory muscles Auscultation: crackles and wheezes expiratory wheezes Cardio Rate: tachycardic Rhythm: regular rhythm GI Inspection: central obesity Bladder/kidney exam: catheter in place Extremity General: edema Neuro Motor exam: no tremor noted Psych Other: Somnolent
[2022-12-22 09:34] LABS: ABG PCO2 85.4 mmHg (35.0-45.0); PO2 ABG 84.9 mmHg (80.0-100.0)
[2022-12-22 09:35] LABS: Allen Test POSITIVE (POSITIVE); Base Excess ABG -2.5 mmol/L (-2.0-2.0); Liters per Minute 2.5; O2 Mode NASAL CANNULA; Oxygen Saturation ABG 95.6 %; Puncture Site R RADIAL
[2022-12-22 09:36] LABS: pH ABG 7.108 (7.350-7.450)
--- NOTE | 2022-12-22 09:53 | CM.NOTE ---
Rounds made with Dr. Curiel. No plan for discharge today.
--- NOTE | 2022-12-22 10:08 | P.PN_ITS ---
Progress Note: Subjective Subjective Interval history: Patient extubated yesterday, was confused. Wore BiPAP overnight, but eventually ripped it off. Became more somnolent and then obtunded. ABG showed re- development of uagkr-qn-oscppuj hypercapnic respiratory failure. Placed back on BiPAP 20/ in attempt to avoid re-intubation. After being placed back on BiPAP, she opened her eyes to my voice which is a sign of improvement. Had long discussion with son regarding the patient... This may be easily mike table of she would be compliant with BiPAP outpatient, but now she is having more frequent and more severe exacerbations. At the point where we need to discuss future options: Continue with aggressive treatment which would include tracheostomy with ventilator support if she continues to require recurrent intubation, or comfort measures (i.e. Hospice). Exam Constitutional Vital Signs, click to edit/add: Last Vital Signs Temp 98.0 F 12/22/22 08:00 Pulse 113 H 12/22/22 08:00 Resp 26 H 12/22/22 08:00 BP 106/79 12/22/22 08:00 Pulse Ox 89 L 12/22/22 10:01 O2 Del Method Vapotherm 12/22/22 10:01 O2 Flow Rate 40 12/22/22 10:01 FiO2 30 12/22/22 10:01 Progress Note: Objective Labs Labs: Short CBC 12/22/22 Range/Units 03:55 WBC 19.2 H (4.0-11.0) 10^3/uL Hgb 10.9 L (12.0-16.0) g/dL Hct 36.8 (36.0-48.0) % Plt Count 194 (150-450) 10^3/uL BMP 12/21/22 12/21/22 12/22/22 12:45 16:49 03:55 Sodium 150 H 148 H Potassium 2.9 L* 3.3 L 3.7 Chloride 110 H 110 H Carbon Dioxide 31.8 31.5 BUN 44.0 H 46.0 H Creatinine 0.99 0.99 Glucose 138 H 152 H Calcium 7.2 L 7.5 L Liver Function 12/22/22 Range/Units 03:55 Total Bilirubin 0.3 (0.2-1.0) mg/dL AST 33 (15-37) U/L ALT 97 H (14-59) U/L Alkaline Phosphatase 108 (46-116) U/L Albumin 2.3 L (3.4-5.0) g/dL Progress Note: A&P Assessment and Plan (1) Acute respiratory failure with hypercapnia:
--- NOTE | 2022-12-22 10:15 | PT.DAILY ---
Physical Therapy Daily Note PT Daily Note/Assess Start: 12/22/22 10:13 Freq: Status: Active Protocol: Document 12/22/22 10:14 LARISA (Rec: 12/22/22 10:14 LARISA [id number]) Visit Not Completed Visit Not Completed Visit Not Completed Due to: Nursing request to hold Other Reason Visit Not Completed Pt is on hold per nursing. Physical Therapy Daily Note/Assessment Time In/Time Out Time In 09:30 Time Out 09:30 GG. Functional Abilities and Goals-Complete for Swing Bed Patients Only [id number]. Self-Care [id number]. Mobility
[2022-12-22] MEDS: PANTOPRAZOLE SODIUM 40 MG VIAL IV (10:28)
[2022-12-22] MEDS: BUDESONIDE 0.5 MG/2 ML AMPULE NEB IH (11:07)
[2022-12-22] MEDS: INSULIN ASPART 300 UNIT/3 ML PEN SUBQ (11:52)
[2022-12-22 12:03] LABS: Glucometer 161 mg/dL (74-106)
[2022-12-22 12:28] LABS: pH ABG 7.186 (7.350-7.450)
[2022-12-22 12:29] LABS: ABG PCO2 70.3 mmHg (35.0-45.0); Allen Test POSITIVE (POSITIVE); Base Excess ABG -1.7 mmol/L (-2.0-2.0); Fractionated Inspired Oxygen 25 %; HCO3 ABG 26.6 mmol/L (22.0-26.0); Liters per Minute 40; O2 Mode VAPOTHERM; Oxygen Saturation ABG 76.7 %; PO2 ABG 41.7 mmHg (80.0-100.0); Puncture Site L RADIAL
[2022-12-22] MEDS: FENTANYL CITRATE/PF 100 MCG/2 ML VIAL 25 MCG IV ×2 (13:03→14:58)
--- NOTE | 2022-12-22 15:47 | PC.NURSE ---
1525-Patint with agonal breathing. Faint pulse. HR 30. Code Blue called. Family at bedside. Zoll patches placed. 1527- Atropine 1 mg given per ACLS protocol. Respers 8 and agonal. Unable to obtain pulse with doppler. CPR initiated. Agonal rhythm on monitor. 1528- Dr Cardenas present. Family present. 1535- Family requests CPR to terminate. Dr Cardenas speaks with family. 1538-Time of . Abcense of BP, Pulse, Respirations. Pupils fixed. confirmed by Dr Cardenas. Family at bedside
--- NOTE | 2022-12-22 15:48 | PM.CCEN ---
Critical Care Event Note Summary Code activated: Yes Narrative: Patient's heart rate dropped and breathing worsened. CODE RUPA was called; atropine was administered for symptomatic bradycardia per ACLS by the RN. As I was advancing to the room, I came across the family in the dinh leading to the ICU. A daughter was crying, saying do everything! while another family member said just let her go! The daughter then replied intubate her! I stated as I was heading to the ICU that I can intubate her, but if it is a heart problem, the intubation may not cure that. The daughter yelled back save her! I arrived in the room and assessed the situation. A pulse was lost - she was in PEA. I told the staff in the room as there was conflicting information from the family, we are defaulting to full code and I directed them to begin CPR. I ordered an amp of epinephrine as I was prepping to intubate the patient when the family rushed into the ICU and was outside the room yelling to stop! and let her go! I instructed the staff to continue CPR and I asked the entirety of the family do they want us to stop CPR and no intubation? They all voiced yes! I asked them if they understood that the patient would , and they replied yes . I instructed the staff to stop CPR - the epinephrine was not administered. I completed a DNR-CC form. We cleared the ACLS items and debris from the room and allowed the family to come in and be with the patient. There were no breaths and no palpable pulse: time of was 15:38. Sympathies were expressed to the family. Dr. Curiel was notified. Critical care time: 75 - 104 mins (25 minutes critical care time during this event.)
--- NOTE | 2022-12-22 19:53 | P.DS_ITS ---
DS: Providers Provider Date of admission: 12/18/22 20:54 Primary care physician: Asael Curiel MD Consults: 12/19/22 07:56 Occupational Therapy Eval and Treat Routine Physical Therapy Eval and Treat Routine 12/21/22 10:31 Occupational Therapy Eval and Treat Routine Physical Therapy Eval and Treat Routine DS: Diagnosis Discharge Diagnosis (1) Acute respiratory failure with hypercapnia: Assessment and plan: Hypertensive urgency on admission-progressed to significant hypotension which resulted in Shock requiring placed on Levophed.? ? blood pressures elevated yesterday, improved today, will decrease her clonidine. Iron deficiency anemia?Hypothermia (less than 96.8), tachycardia, respiratory distress, acute hypoxia, uncontrolled hypertension with hypertensive urgency that progressed in icu to hypotension secondary to healthcare facility acquired pneumonia resulting in acute exacerbation of COPD and acute hypercapnic and acute hypoxic respiratory failure with resp acidosis.? Now with neutropenia, patient currently ventilated.? This is resulted in severe sepsis with septic shock with multisystem organ dysfunction(resp, cardiac, liver, heme) antibiotics were adjusted stable overnight, plan per pulmonology in regards to extubation Hypertensive urgency on admission-progressed to significant hypotension which resulted in Shock requiring placed on Levophed.? Thrombocytopenia Hyperkalemia on admission Iron deficiency anemia? as well as anemia of acute blood loss Elevated LFTs as a function of the sepsis from above Elevated BNP- Nutritional status-patient morbidly obese.? Erythema bilateral lower extremities ultrasound of lower extremities, Patient admitted to the ICU as an inpatient-on a ventilator, likely in the hospital 3 to 4 days minimum.Maintain inpatient status Elevated LFTs Elevated BNP Nutritional status Erythema bilateral lower extremities DS: Summary Hospital Course Hospital Course: Hypertensive urgency on admission-progressed to significant hypotension which resulted in Shock requiring placed on Levophed.?Iron deficiency ane phu?Hypothermia (less than 96.8), tachycardia, respiratory distress, acute hypoxia, uncontrolled hypertension with hypertensive urgency that progressed in icu to hypotension secondary to healthcare facility acquired pneumonia resulting in acute exacerbation of COPD and acute hypercapnic and acute hypoxic respiratory failure with resp acidosis.? Now with neutropenia, patient currently ventilated.? This is resulted in severe sepsis with septic shock with multisystem organ dysfunction(resp, cardiac, liver, heme) antibiotics were adjusted stable overnight, plan per pulmonology in regards to extubation Patient was managed on a ventilator for several days. She did improve to the point that she can be extubated yesterday. Overnight had increasing shortness of breath. [place] to be fluid overloaded was given diuretics in the morning. Repeat ABG showed a elevated PCO2 and pH of 7.1. Patient at this time BiPAP. With plan to follow-up on repeat ABGs. Patient became increasingly respiratory distress. Patient then suffered cardiac arrest. Discussion with that taken place before with the family and then at that time and it was elected to allow patient to . Cause of end-stage COPD Time Spent with Patient Time attestation: Total time spent providing and/or coordinating discharge services: Exam Constitutional Vital Signs, click to edit/add: Last Vital Signs Temp 97.6 F 12/22/22 15:00 Pulse 116 H 12/22/22 15:00 Resp 36 H 12/22/22 15:00 BP 158/90 H 12/22/22 10:01 Pulse Ox 93 L 12/22/22 15:00 O2 Del Method Vapotherm 12/22/22 15:00 O2 Flow Rate 40 12/22/22 15:00 FiO2 25 12/22/22 15:00 DS: Data Data Completed and Pending Labs on day of discharge: Labs from last 24 hours 12/22/22 12/22/22 12/22/22 12:20 11:52 09:29 WBC RBC Hgb Hct MCV MCH MCHC RDW Plt Count MPV Seg Neuts % (Manual) Band Neutrophils % Lymphocytes % (Manual) Monocytes % (Manual) Eosinophils % (Manual) Basophils % (Manual) Metamyelocytes % Neutrophils # (Manual) Band Neutrophils # Lymphocytes # (Manual) Monocytes # (Manual) Eosinophils # (Manual) Basophils # (Manual) Metamyelocytes # Puncture Site L radial R radial ABG pH 7.186 L* 7.108 L* ABG pCO2 70.3 H* 85.4 H* ABG pO2 41.7 L 84.9 ABG HCO3 26.6 H 27.0 H ABG O2 Saturation 76.7 95.6 ABG Base Excess -1.7 -2.5 L Wang Test Positive Positive O2 Liters/Min 40 2.5 FiO2 25 Sodium Potassium Chloride Carbon Dioxide Anion Gap BUN Creatinine Est GFR ( Amer) Est GFR (Non-Af Amer) BUN/Creatinine Ratio Glucose Calcium Total Bilirubin AST ALT Alkaline Phosphatase NT-Pro-B Natriuret Pep Total Protein Albumin Globulin Albumin/Globulin Ratio POC Glucose 161 H 12/22/22 12/22/22 12/21/22 06:43 03:55 22:08 WBC 19.2 H RBC 3.93 L Hgb 10.9 L Hct 36.8 MCV 93.6 MCH 27.7 MCHC 29.6 L RDW 15.7 H Plt Count 194 MPV 10.2 Seg Neuts % (Manual) 91.0 Band Neutrophils % 3.0 Lymphocytes % (Manual) 2.0 L Monocytes % (Manual) 2.0 Eosinophils % (Manual) 1.0 Basophils % (Manual) 0.0 L Metamyelocytes % 1.0 Neutrophils # (Manual) 17.47 H Band Neutrophils # 0.6 H Lymphocytes # (Manual) 0.38 L Monocytes # (Manual) 0.38 Eosinophils # (Manual) 0.19 Basophils # (Manual) 0.00 Metamyelocytes # 0.19 Puncture Site Rr ABG pH 7.099 L* ABG pCO2 92.0 H* ABG pO2 69.5 L ABG HCO3 28.4 H ABG O2 Saturation 91.5 ABG Base Excess -1.2 Wang Test Positive O2 Liters/Min 2 FiO2 Sodium 148 H Potassium 3.7 Chloride 110 H Carbon Dioxide 31.5 Anion Gap 10.2 BUN 46.0 H Creatinine 0.99 Est GFR ( Amer) >60 Est GFR (Non-Af Amer) 56 L BUN/Creatinine Ratio 46.5 Glucose 152 H Calcium 7.5 L Total Bilirubin 0.3 AST 33 ALT 97 H Alkaline Phosphatase 108 NT-Pro-B Natriuret Pep 79178.0 H* Total Protein 6.0 L Albumin 2.3 L Globulin 3.7 Albumin/Globulin Ratio 0.6 POC Glucose 143 H Preliminary micro results at discharge 12/18/22 15:30 - Preliminary Blood 12/18/22 15:22 Blood Culture Result 1 - Preliminary Blood Discharge Plan Discharge Disposition: Date/Time: 12/22/22 15:40
== END 2022-12-22 21:53 | disposition expired | DRG 720 ==
LOC: ER 19:43 → ICU 21:08
PROVIDERS: Emergency Medicine; Internal Medicine; Admitting Provider Internal Medicine; Emergency Provider Internal Medicine; PCP Family Medicine; Visit Provider Family Medicine
DX: A41.9 Sepsis, unspecified organism (principal); R65.21 Severe sepsis with septic shock; I16.0 Hypertensive urgency; J44.0 Chronic obstructive pulmonary disease with (acute) lower respiratory infection; J18.9 Pneumonia, unspecified organism; J44.1 Chronic obstructive pulmonary disease with (acute) exacerbation; Y95 Nosocomial condition; J96.02 Acute respiratory failure with hypercapnia; J96.01 Acute respiratory failure with hypoxia; E87.29 Other acidosis; D69.6 Thrombocytopenia, unspecified; E87.5 Hyperkalemia; D50.9 Iron deficiency anemia, unspecified; R79.89 Other specified abnormal findings of blood chemistry; L53.9 Erythematous condition, unspecified; R53.83 Other fatigue; R19.7 Diarrhea, unspecified; E88.09 Other disorders of plasma-protein metabolism, not elsewhere classified; E66.2 Morbid (severe) obesity with alveolar hypoventilation; F41.9 Anxiety disorder, unspecified; E78.00 Pure hypercholesterolemia, unspecified; D70.9 Neutropenia, unspecified; D62 Acute posthemorrhagic anemia; E87.4 Mixed disorder of acid-base balance; I10 Essential (primary) hypertension; R68.0 Hypothermia, not associated with low environmental temperature; B95.7 Other staphylococcus as the cause of diseases classified elsewhere; Z66 Do not resuscitate; Z51.5 Encounter for palliative care; Z68.42 Body mass index [BMI] 45.0-49.9, adult; Z91.199 Patient's noncompliance with other medical treatment and regimen due to unspecified reason; Z79.899 Other long term (current) drug therapy; Z79.51 Long term (current) use of inhaled steroids; Z79.01 Long term (current) use of anticoagulants; Z79.1 Long term (current) use of non-steroidal anti-inflammatories (NSAID); Z87.891 Personal history of nicotine dependence; Z86.19 Personal history of other infectious and parasitic diseases; Z88.8 Allergy status to other drugs, medicaments and biological substances
CPT/HCPCS: 36415; 36430; 36569; 36592; 36600; 71045; 80048; 80053; 80202; 80320; 81001; 81003; 81015; 82800; 82805; 82948; 83605; 83735; 83880; 84132; 84436; 84439; 84443; 84478; 84481; 84484; 85025; 85027; 85610; 85730; 86850; 86900; 86901; 86920; 87040; 87070; 87086; 87106; 87150; 87186; 87493; 89220; 93005; 93970; 94002; 94003; 94640; 94660; 94761; 94799; 96361; 96365; 96366; 96367; 96368; 96375; 96376; 97161; 97165; 97530; 97535; 99291; C1887; G0328; J2920; J2930; J3370; J3480; P9016